=== PATIENT | male | born 1960 | race Caucasian/White ===

== ENCOUNTER 2016-05-04 08:35 | Observation (INO) ==
[2016-05-04] MEDS ORDERED: methylPREDNISolone 125 MG/2 ML VIAL IVP ONE (08:54)
[2016-05-04] MEDS ORDERED: Ipratropium/Albuterol Neb 3 ML IH ONE (08:54)
[2016-05-04 09:14] LABS: Basophils # 0.1 K/mcL (0.0-0.2); Basophils % 0.6 %; Eosinophils # 0.6 K/mcL (0.0-0.6); Eosinophils % 6.7 %; Hematocrit 50.4 % (37.5-50.1); Hemoglobin 16.1 g/dL (12.9-16.9); Immature Granulocytes % 0.2 % (0-4); Immature Platelets 3.7 % (1.1-6.1); Lymphocytes # 0.8 K/mcL (0.6-4.6); Lymphocytes % 9.6 %; Mean Corpuscular HGB Conc 31.9 g/dL (31.6-35.5); Mean Corpuscular Hemoglobin 28.8 pg (28.0-33.3); Mean Corpuscular Volume 90.2 fL (83.0-100.0); Mean Platelet Volume 9.8 fL (9.4-12.4); Monocytes # 0.8 K/mcL (0.0-1.3); Monocytes % 8.9 %; Neutrophils # 6.3 K/mcL (1.6-8.9); Platelet Count 183 K/mcL (140-400); Red Blood Count 5.59 M/mcL (4.19-5.50); Red Cell Distribution Width 13.3 % (11.5-14.5)
[2016-05-04 09:24] LABS: BUN/Creatinine Ratio 10 (6-26); Blood Urea Nitrogen 9 mg/dL (8-26); Calcium 9.6 mg/dL (8.6-10.8); Carbon Dioxide 35 mEq/L (19-29); Chloride 100 mEq/L (98-109); Glucose 118 mg/dL (70-99); Osmolality,Calculated 292 (280-300); Potassium 4.2 mEq/L (3.5-4.5); Sodium 141 mEq/L (136-145); eGFR For African Americans > 60 (> 60); eGFR For Non-African Americans > 60 (> 60)
--- NOTE | 2016-05-04 09:36 | Emergency Department Note ---
Disposition Clinical Impression: Hypoxia, COPD exacerbation Disposition: Admitted As Inpatient Forms: ED Satisfaction Letter SOB HPI - General Chief Complaint: ED Shortness of Breath/Dyspnea Stated Complaint: ESPERANZA Time Seen by Provider: 05/04/16 08:48 Source: patient Limitations: no limitations - History of Present Illness Patient with past medical history of COPD and hypertension presenting for evaluation of cough 3 weeks as well as shortness of breath that is keeping him from getting around his house today. Patient is not normally on home oxygen. Patient's initial symptoms improved with primary care's initiation of prednisone and antibiotics which ended approximately one week ago. Patient has not had 3 days of coughing up sputum including white and green mucus. Patient denies fever chills. Patient does have leg swelling with +1 pitting edema to the knees bilaterally. On arrival patient was hypoxic with oxygen saturation of high 80s on room air. Patient tachycardic and hypotensive with significant expiratory wheezing. Duonebs and steroids initiated after triage. - Related Data Home Medications Medication Instructions Recorded Confirmed Albuterol Sulfate [Ventolin Hfa] 2 puff IH Q6H PRN 05/04/16 05/04/16 Ascorbate Calcium [Vitamin C] 500 mg PO DAILY 05/04/16 05/04/16 C/Sourcherry/Celery/Grape Seed 1 cap PO DAILY 05/04/16 05/04/16 [Tart Henderson Capsule] Ibuprofen [Motrin] 200 mg PO Q6HR PRN 05/04/16 05/04/16 Naproxen Sodium [Aleve] 220 mg PO BID PRN 05/04/16 05/04/16 Omeprazole [PriLOSEC] 20 mg PO DAILY 05/04/16 05/04/16 Tiotropium [Spiriva] 1 cap IH DAILY 05/04/16 05/04/16 Valsartan/Hydrochlorothiazide 1 tab PO DAILY 05/04/16 05/04/16 [Diovan Hct 160-12.5 mg Tab] Allergies Allergy/AdvReac Type Severity Reaction Status Date / Time demoral Allergy Rash Uncoded 05/04/16 08:43 All systems ED: reviewed and negative except as stated. Constitutional: Reports: weakness. Denies: fever, chills Eyes: Denies: eye pain ENT ED: Denies: ear pain Cardiovascular: Reports: dyspnea on exertion, orthopnea. Denies: chest pain, palpitations Respiratory: Reports: cough, dyspnea, wheezes Gastrointestinal: Denies: abdominal pain, nausea, vomiting Genitourinary: Denies: urgency, dysuria Musculoskeletal: Denies: back pain Integumentary: Denies: rash, abrasion Neurological: Denies: headache, weakness Psychiatric: Denies: anxiety, depression Endocrine: Denies: fatigue Past Medical History - Past Medical History Medical history: Reports: COPD, GERD, hypertension Psychiatric history: Reports: no psych history - Social History Smoking Status: Former smoker Smokeless Tobacco Status: No Alcohol use: Reports: none Drug use: Reports: none Physical Exam - General Limitations: no limitations General appearance: alert - Head Head exam: atraumatic, normocephalic, normal inspection - Eye Eye exam: Present: normal appearance, PERRL, EOMI - ENT ENT exam: normal exam - Neck Neck exam: Present: normal inspection - Chest Chest inspection: Present: normal inspection, symmetric chest wall rise. Absent : tenderness - Respiratory Respiratory exam: Present: respiratory distress, wheezes (Diffuse bilaterally with prolonged expiratory phase) - Cardiovascular Cardiovascular exam: Present: regular rate, normal rhythm - Abdominal Exam Abdominal exam: Present: soft, Non-Tender - Extremities Exam Extremities exam: Present: normal inspection, tenderness - Back Exam Back exam: Present: normal inspection. Absent: tenderness - Neurological Exam Neurological exam: Present: alert, oriented X3 - Psychiatric Psychiatric exam: Present: normal affect, normal mood - Skin Skin exam: Present: warm, dry, intact Course - Reevaluation(s) Reevaluation #1: After initial DuoNeb's. Patient's oxygen dropped to 90% on room air just resting in bed. - Consultations Consultation #1: Discussed with hospitalist. Patient accepted. Vital Signs Temperature 98.6 F 05/04/16 08:38 Pulse Rate 103 05/04/16 08:38 Respiratory Rate 26 05/04/16 08:38 Blood Pressure 165/110 05/04/16 08:38 O2 Sat by Pulse Oximetry 82 L 05/04/16 08:38 Temperature 98.1 F 05/04/16 15:54 Pulse Rate 80 05/04/16 15:54 Respiratory Rate 17 05/04/16 15:54 Blood Pressure 149/88 05/04/16 15:54 O2 Sat by Pulse Oximetry 93 L 05/04/16 15:54 Oxygen Delivery Oxygen Delivery Nasal Cannula Shortness of Breath/Dyspnea - Medical Records Medical records reviewed: Yes I reviewed the patient's medical records. - Lab Data Lab results reviewed: Yes I reviewed the patient's lab results. Result diagrams: 05/04/16 09:04 05/04/16 09:04 Lab Results 05/04/16 05/04/16 05/04/16 Range/Units 09:04 09:04 09:04 WBC 8.5 (4.3-11.1) K/mcL RBC 5.59 H (4.19-5.50) M/mcL Hgb 16.1 (12.9-16.9) g/dL Hct 50.4 H (37.5-50.1) % MCV 90.2 (83.0-100.0) fL MCH 28.8 (28.0-33.3) pg MCHC 31.9 (31.6-35.5) g/dL RDW 13.3 (11.5-14.5) % Plt Count 183 (140-400) K/mcL MPV 9.8 (9.4-12.4) fL Immature Gran % 0.2 (0-4) % Seg Neutrophils % 74.0 % Lymphocytes % 9.6 % Monocytes % 8.9 % Eosinophils % 6.7 % Basophils % 0.6 % Neutrophils # 6.3 (1.6-8.9) K/mcL Lymphocytes # 0.8 (0.6-4.6) K/mcL Monocytes # 0.8 (0.0-1.3) K/mcL Eosinophils # 0.6 (0.0-0.6) K/mcL Basophils # 0.1 (0.0-0.2) K/mcL Immature Plt Fraction 3.7 (1.1-6.1) % ABG pH (7.32-7.45) pH Units ABG pCO2 (35-45) mmHg ABG pO2 (85-104) mmHg ABG HCO3 (21-27) mEQ/L ABG Total CO2 (20-26) mEq/L ABG O2 Saturation (95-98) % ABG Base Excess (-2.0 to 3.0) mEq/L Blood Gas Modality Inspired O2 % Sodium 141 (136-145) mEq/L Potassium 4.2 (3.5-4.5) mEq/L Chloride 100 (98-109) mEq/L Carbon Dioxide 35 H (19-29) mEq/L BUN 9 (8-26) mg/dL Creatinine 0.86 (0.72-1.25) mg/dL Est GFR ( Amer) > 60 (> 60) Est GFR (Non-Af Amer) > 60 (> 60) BUN/Creatinine Ratio 10 (6-26) Glucose 118 H (70-99) mg/dL Calculated Osmolality 292 (280-300) Calcium 9.6 (8.6-10.8) mg/dL Troponin I 0.01 (0-0.03) ng/mL B-Natriuretic Peptide (0-100) pg/mL 05/04/16 05/04/16 05/04/16 Range/Units 09:04 11:04 16:00 WBC (4.3-11.1) K/mcL RBC (4.19-5.50) M/mcL Hgb (12.9-16.9) g/dL Hct (37.5-50.1) % MCV (83.0-100.0) fL MCH (28.0-33.3) pg MCHC (31.6-35.5) g/dL RDW (11.5-14.5) % Plt Count (140-400) K/mcL MPV (9.4-12.4) fL Immature Gran % (0-4) % Seg Neutrophils % % Lymphocytes % % Monocytes % % Eosinophils % % Basophils % % Neutrophils # (1.6-8.9) K/mcL Lymphocytes # (0.6-4.6) K/mcL Monocytes # (0.0-1.3) K/mcL Eosinophils # (0.0-0.6) K/mcL Basophils # (0.0-0.2) K/mcL Immature Plt Fraction (1.1-6.1) % ABG pH 7.35 (7.32-7.45) pH Units ABG pCO2 66 H (35-45) mmHg ABG pO2 68 L (85-104) mmHg ABG HCO3 36.4 H (21-27) mEQ/L ABG Total CO2 38.4 H (20-26) mEq/L ABG O2 Saturation 92 L (95-98) % ABG Base Excess 7.6 H (-2.0 to 3.0) mEq/L Blood Gas Modality NC Inspired O2 36 % Sodium (136-145) mEq/L Potassium (3.5-4.5) mEq/L Chloride (98-109) mEq/L Carbon Dioxide (19-29) mEq/L BUN (8-26) mg/dL Creatinine (0.72-1.25) mg/dL Est GFR ( Amer) (> 60) Est GFR (Non-Af Amer) (> 60) BUN/Creatinine Ratio (6-26) Glucose (70-99) mg/dL Calculated Osmolality (280-300) Calcium (8.6-10.8) mg/dL Troponin I 0.00 (0-0.03) ng/mL B-Natriuretic Peptide 12 (0-100) pg/mL - Radiology Data Radiology results reviewed: Yes I reviewed the patient's radiology results. - EKG Data EKG attestation: Yes I reviewed and interpreted this EKG. EKG results narrative: EKG shows sinus rhythm with ventricular rate of 101. IL interval 166. QRS 96. QTC 391. Patient has no significant ST elevations or depressions. Nonspecific T-wave changes. No previous EKG.
[2016-05-04] MEDS ORDERED: 0.9 % Sodium Chloride 500 ML IV ONE (10:15)
--- NOTE | 2016-05-04 10:17 | Emergency Department Note ---
Disposition Clinical Impression: Hypoxia, COPD exacerbation Disposition: Admitted As Inpatient Referrals: Veronica Killian MD [Primary Care Provider] - General Adult [facility] - General Chief complaint: ED Shortness of Breath/Dyspnea Stated complaint: ESPERANZA Time Seen by Provider: 05/04/16 08:48 Source: patient Limitations: no limitations - History of Present Illness Pain Scale: 0 - Related Data Allergies Allergy/AdvReac Type Severity Reaction Status Date / Time demoral Allergy Rash Uncoded 05/04/16 08:43 Constitutional: Reports: weakness. Denies: fever, chills Eyes: Denies: eye pain ENT ED: Denies: ear pain Cardiovascular: Reports: dyspnea on exertion, orthopnea. Denies: chest pain, palpitations Respiratory: Reports: cough, dyspnea, wheezes Gastrointestinal: Denies: abdominal pain, nausea, vomiting Genitourinary: Denies: urgency, dysuria Musculoskeletal: Denies: back pain Integumentary: Denies: rash, abrasion Neurological: Denies: headache, weakness Psychiatric: Denies: anxiety, depression Endocrine: Denies: fatigue Past Medical History - Past Medical History Medical history: Reports: COPD, GERD, hypertension Psychiatric history: Reports: no psych history - Social History Smoking Status: Former smoker Smokeless Tobacco Status: No Alcohol use: Reports: none Drug use: Reports: none Physical Exam - General Limitations: no limitations General appearance: alert Course - Reevaluation(s) Reevaluation #1: I saw the patient with the resident, Dr. Medley. Patient presents with shortness of breath and cough. Patient was recently diagnosed with COPD and was recently treated for bronchitis with antibiotics and steroids. Couple days after stopping the steroids he started getting short of breath and wheezing again. For the past week he has been having a lot of trouble. He describes inability to lie down. He describes similar shortness of breath when exerting himself that is limiting his activities of daily living. On arrival to the department his O2 sat was 82% on room air. He is up in the 90s with oxygen supplementation. After breathing treatments and steroids and with oxygen on, the patient is still tachycardic and tachypneic with a little bit of accessory muscle use. He continues to have expiratory wheezing. I think he needs to be treated inpatient due to his oxygen requirement at this point. Time: 10:17 Vital Signs Temperature 98.6 F 05/04/16 08:38 Pulse Rate 103 05/04/16 08:38 Respiratory Rate 26 05/04/16 08:38 Blood Pressure 165/110 05/04/16 08:38 O2 Sat by Pulse Oximetry 82 L 05/04/16 08:38 Temperature 98.6 F 05/04/16 08:38 Pulse Rate 98 05/04/16 09:20 Respiratory Rate 25 05/04/16 09:20 Blood Pressure 156/100 05/04/16 09:20 O2 Sat by Pulse Oximetry 96 05/04/16 09:20 Oxygen Delivery Oxygen Delivery Nasal Cannula Medical Decision Making - Lab Data Result diagrams: 05/04/16 09:04 05/04/16 09:04 Lab Results 05/04/16 05/04/16 05/04/16 Range/Units 09:04 09:04 09:04 WBC 8.5 (4.3-11.1) K/mcL RBC 5.59 H (4.19-5.50) M/mcL Hgb 16.1 (12.9-16.9) g/dL Hct 50.4 H (37.5-50.1) % MCV 90.2 (83.0-100.0) fL MCH 28.8 (28.0-33.3) pg MCHC 31.9 (31.6-35.5) g/dL RDW 13.3 (11.5-14.5) % Plt Count 183 (140-400) K/mcL MPV 9.8 (9.4-12.4) fL Immature Gran % 0.2 (0-4) % Seg Neutrophils % 74.0 % Lymphocytes % 9.6 % Monocytes % 8.9 % Eosinophils % 6.7 % Basophils % 0.6 % Neutrophils # 6.3 (1.6-8.9) K/mcL Lymphocytes # 0.8 (0.6-4.6) K/mcL Monocytes # 0.8 (0.0-1.3) K/mcL Eosinophils # 0.6 (0.0-0.6) K/mcL Basophils # 0.1 (0.0-0.2) K/mcL Immature Plt Fraction 3.7 (1.1-6.1) % Sodium 141 (136-145) mEq/L Potassium 4.2 (3.5-4.5) mEq/L Chloride 100 (98-109) mEq/L Carbon Dioxide 35 H (19-29) mEq/L BUN 9 (8-26) mg/dL Creatinine 0.86 (0.72-1.25) mg/dL Est GFR ( Amer) > 60 (> 60) Est GFR (Non-Af Amer) > 60 (> 60) BUN/Creatinine Ratio 10 (6-26) Glucose 118 H (70-99) mg/dL Calculated Osmolality 292 (280-300) Calcium 9.6 (8.6-10.8) mg/dL Troponin I 0.01 (0-0.03) ng/mL B-Natriuretic Peptide (0-100) pg/mL 05/04/16 Range/Units 09:04 WBC (4.3-11.1) K/mcL RBC (4.19-5.50) M/mcL Hgb (12.9-16.9) g/dL Hct (37.5-50.1) % MCV (83.0-100.0) fL MCH (28.0-33.3) pg MCHC (31.6-35.5) g/dL RDW (11.5-14.5) % Plt Count (140-400) K/mcL MPV (9.4-12.4) fL Immature Gran % (0-4) % Seg Neutrophils % % Lymphocytes % % Monocytes % % Eosinophils % % Basophils % % Neutrophils # (1.6-8.9) K/mcL Lymphocytes # (0.6-4.6) K/mcL Monocytes # (0.0-1.3) K/mcL Eosinophils # (0.0-0.6) K/mcL Basophils # (0.0-0.2) K/mcL Immature Plt Fraction (1.1-6.1) % Sodium (136-145) mEq/L Potassium (3.5-4.5) mEq/L Chloride (98-109) mEq/L Carbon Dioxide (19-29) mEq/L BUN (8-26) mg/dL Creatinine (0.72-1.25) mg/dL Est GFR ( Amer) (> 60) Est GFR (Non-Af Amer) (> 60) BUN/Creatinine Ratio (6-26) Glucose (70-99) mg/dL Calculated Osmolality (280-300) Calcium (8.6-10.8) mg/dL Troponin I (0-0.03) ng/mL B-Natriuretic Peptide 12 (0-100) pg/mL Attestation Statement - Attestation Attestation: I, Dr. Wade, examined this patient [id number] and my medical decision- making was reviewed with Dr. Medley, Resident Physician. I agree with the documented findings, disposition and treatment plan as described except to the extent set forth below. Please see my progress notes for details.
[2016-05-04] MEDS ORDERED: Naloxone 0.4 MG/ML INJ IVP PRN (10:56)
--- NOTE | 2016-05-04 11:02 | Internal Med History&Physical ---
<Jane Mathis - Last Filed: 05/04/16 11:36> Date of Encounter: 05/04/16 Time of Encounter: 10:45 Assessment and Plan (1) Hypoxemia Current visit: Yes Status: Acute Most probable secondary to COPD exacerbation. Evidenced by 82% saturation on room air, patient does not use supplemental oxygen on a regular basis. 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 Consideration for underlying interstitial lung disease. Pulmonary embolism considered, with Wells score of 1.5: Tachycardia. Low probability at this time. Lower extremity exam discloses very mild pretibial pitting edema. Will obtain Dopplers lower extremity. Patient has significant hypoxemia, with comorbid conditions, predisposing him to increased risk of clinical deterioration, and acute decompensation. Warrants hospitalization with evaluation. We will obtain ABG for further delineation. (2) COPD exacerbation Current visit: Yes Status: Acute Evidenced by increasing dyspnea, with worsening sputum production. Supported by chest x-ray with flattened diaphragm. Failed outpatient therapy, concern for secondary bacterial infection: Will obtain blood cultures 2, sputum culture, start empiric antibiotic therapy. Systemic steroids, taper as clinically indicated. Patient did endorse multiple sick contacts in the family, will obtain respiratory infectious panel. Patient has never had PFTs, would recommend obtaining PFTs in 6 weeks after hospitalization following acute illness. (3) Polycythemia secondary to smoking Current visit: Yes Status: Acute Secondary polycythemia suspect secondary to smoking primarily. May also be contributory from possible sleep apnea. No prior records to review. Encouraged smoking cessation, sleep apnea evaluation as outpatient. (4) HTN (hypertension) Current visit: Yes Status: Acute Would continue home medication. Consideration for possible sleep apnea, would suggest f/u as outpatient. Qualifiers: Hypertension type: essential hypertension Qualified Code(s): I10 - Essential (primary) hypertension (5) Smoker Current visit: Yes Status: Acute Patient has been smoking since age of 20, quit in June 2015, but does have 1 -2 occasional cigarettes still. Patient was counseled on smoking cessation, offered nicotine replacement therapy. Patient declined a nicotine patch at this juncture. (6) DVT prophylaxis Current visit: Yes Status: Acute Heparin 5000 U SC TID Internal Medicine - H&P: HPI Chief complaint: Short of breath Admitted From: Home Plans for Post Hospital Care: Home History of present illness: Mr. Kapadia is a 55 year old male significant history COPD, hypertension, GERD. The patient was evaluated late March by his PCP Dr. Veronica Killian, for COPD exacerbation. He was prescribed a course of prednisone 40 mg daily for 5 days, Pro Air, Symbicort. Per patient's recollection, he has never been diagnosed with COPD by PFTs. The patient reports that his course would improve during the steroid therapy, and that he felt like a young 27-year-old. Interval progression he would experience increasing cough with whitish green sputum production, and increased shortness of breath, this is pronounced over the past week, prompting his admission to [facility]. ED interval course he received duonebs, IV steroids, with some improvement of symptoms. Initial evaluation he would have desaturation to 82% on room air, this was improved to 94% on 3 L nasal cannula. Chest x-ray with disclose no evidence of pneumothorax, or infiltrate. There is some mild blunting of the diaphragms consistent with COPD, and perihilar opacity consistent with his occupational exposure. Upon my evaluation in the ED, patient was sitting up and affirms events leading to hospitalization. He reports that he has been smoking since the age of 20, but quit in June, and does smoke about 1-2 cigarettes since that time. 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 The patient denies any pleurisy, and he is able to perform ADLs without shortness of breath up until today. The patient reports that he is not on home oxygen. He denies any fever, chills , muscle aches or cramps, abdominal pain, nausea vomiting diarrhea. He denies any hemoptysis or blood-tinged sputum. He denies any change in bowel habits, no blood noted in stool. He is current with flu vaccine and pneumonia vaccine. He denies any sensation of chest pain, chest pressure, tightness, palpitations, pauses. He states that he sometimes feels difficulty taking in a full breath when he is lying flat, so he sleeps on a recliner. He endorses multiple sick contacts in his family, including cough, congestion and vomiting. Patient reports some LE swelling since last week. No trauma or redness to the region. Denies any trauma, long travel. FH: His mother had MV repair in 70's, reportedly from rheumatic fever complication. Father DM. SH: He reports smoking since age of 20, quit Jun 2015 but still has 1-2 cigarettes on occasion. Alcohol use with a few beers, on occasion, states last drink was 4-5 days ago. He is able to perform ADLs without walker or cane. Past Med Surg Social Fam HX - Past Medical History Medical history: COPD, GERD, hypertension Psychiatric history: no psych history - Social History Smoking Status: Former smoker Smokeless Tobacco Status: No Alcohol use: none Drug use: none - Family History Mother Living Status: Hx Family Endocrine Disorder: Yes (DM) Internal Medicine - H&P: Meds Albuterol Sulfate [Ventolin Hfa] 2 puff IH Q6H PRN 05/04/16 [History] Ascorbate Calcium [Vitamin C] 500 mg PO DAILY 05/04/16 [History] C/Sourcherry/Celery/Grape Seed [Tart Henderson Capsule] 1 cap PO DAILY 05/04/16 [ History] Ibuprofen [Motrin] 200 mg PO Q6HR PRN 05/04/16 [History] Naproxen Sodium [Aleve] 220 mg PO BID PRN 05/04/16 [History] Omeprazole [PriLOSEC] 20 mg PO DAILY 05/04/16 [History] Tiotropium [Spiriva] 1 cap IH DAILY 05/04/16 [History] Valsartan/Hydrochlorothiazide [Diovan Hct 160-12.5 mg Tab] 1 tab PO DAILY [History] Allergies demoral Allergy (Uncoded 05/04/16 08:43) Rash All Systems PM: A 10-system review of systems was performed and is negative for pertinent findings except as documented above in the HPI. - Constitutional Vitals: Temp Pulse Resp BP Pulse Ox 98.6 F 107 24 119/85 93 L 05/04/16 08:38 05/04/16 10:28 05/04/16 10:34 05/04/16 10:34 05/04/16 10:28 General appearance: Present: A&O X 3, answers questions appropriately Exam: Patient on 3 L nasal cannula, pursing of lips with exhalation, some accessory muscle use. Mild conversational dyspnea after several sentences. - Head Head exam: Present: atraumatic, normocephalic - Eye Eye exam: Present: EOMI, sclera anicteric - ENT ENT exam: Present: mucous membranes moist, normal oropharynx (no lesions/ mucosits) - Neck Neck exam general surgery: Present: supple, trachea midline. Absent: lymphadenopathy - Respiratory Respiratory exam: Present: accessory muscle use, prolonged expiratory phase ( with pursed lips), rhonchi (end exp ronchi, no crackles), wheezes (scant insp wheeze) - Cardiovascular Cardiovascular exam: Present: +S1, +S2, tachycardia. Absent: JVD - GI/Abdominal GI/Abdominal exam: Present: soft, no peritoneal signs. Absent: tenderness - Extremities Exam Extremities exam: Present: pedal edema (mild lower ankle, no rash, no Bandar's sign elicited), warm, radial pulses palpable and symetrical - Neurological Exam Neurological exam: Absent: facial droop, speech deficit Internal Med - H&P Results - Labs CBC & Chem 7: 05/04/16 09:04 05/04/16 09:04 <Gonzalez Mason - Last Filed: 05/04/16 12:43> Date of Encounter: 05/04/16 Internal Medicine - H&P: HPI History of present illness: Mr. Kapadia is a 55 year old male All Systems PM: A 10-system review of systems was performed and is negative for pertinent findings except as documented above in the HPI. - Constitutional Vitals: Temp Pulse Resp BP Pulse Ox 98.1 F 119 16 156/94 91 L 05/04/16 11:47 05/04/16 11:47 05/04/16 11:47 05/04/16 11:47 05/04/16 11:47 Internal Med - H&P Results - Labs CBC & Chem 7: 05/04/16 09:04 05/04/16 09:04 - ABG Interpretation ABG results: 05/04/16 11:04 ABG pH 7.35 ABG pCO2 66 H ABG pO2 68 L ABG HCO3 36.4 H ABG Total CO2 38.4 H ABG O2 Saturation 92 L ABG Base Excess 7.6 H - Attending Attestation I have seen and examined this patient independently. I have discussed the case with the resident, Dr. Mathis. I agree with the data gathering in the HPI, physical examination findings, assessment and plan as documented by the resident. COPD exacerbation with hypoxemia. Will continue with oxygen, steroids , aerosol therapy, antibiotics. The plan was discussed in detail with the patient.
[2016-05-04 11:48] LABS: ABG Base Excess 7.6 mEq/L (-2.0 to 3.0); ABG HCO3 36.4 mEQ/L (21-27); ABG Oxygen Saturation 92 % (95-98); ABG PCO2 66 mmHg (35-45); ABG PH 7.35 pH Units (7.32-7.45); ABG PO2 68 mmHg (85-104); ABG TCO2 38.4 mEq/L (20-26)
[2016-05-04 11:49] LABS: Blood Gas FiO2 36 %
[2016-05-04] MEDS: Azithromycin 500 MG in D5% in Water 250 ML IVPB SCH (12:28)
[2016-05-04] MEDS: *HR* Heparin 5,000 UNIT/ML VIAL SQ SCH ×2 (15:23→20:13)
[2016-05-04] MEDS: Ipratropium 1 PUFF INHALER IH SCH ×4 (16:08→22:45)
[2016-05-04] MEDS: Ipratropium/Albuterol Neb 3 ML IH SCH ×2 (16:10→22:27)
[2016-05-04] MEDS: Acetaminophen 325 MG TABLET PO PRN (17:50)
[2016-05-04] MEDS: methylPREDNISolone 125 MG/2 ML VIAL IVP SCH (20:13)
[2016-05-04] MEDS: GuaiFENesin/Dextromethorphan TABLET PO PRN (21:18)
[2016-05-04] MEDS: Budesonide/Formoterol 160/4.5 MDI IH SCH (22:27)
[2016-05-05 00:03] LABS: Adenovirus Not Detected (Not Detect); Bordetella Pertussis Not Detected (Not Detect); Chlamydophila pneumoniae Not Detected (Not Detect); Coronavirus 229E Not Detected (Not Detect); Coronavirus HKU1 Not Detected (Not Detect); Coronavirus NL63 Not Detected (Not Detect); Coronavirus OC43 Not Detected (Not Detect); Human Metapneumovirus Not Detected (Not Detect); Human Rhinovirus/Enterovirus Not Detected (Not Detect); Influenza A Subtype 2009 H1 Not Detected (Not Detect); Influenza A Untypeable Not Detected (Not Detect); Influenza B Not Detected (Not Detect); Mycoplasma pneumoniae Not Detected (Not Detect); Parainfluenza Virus 1 Not Detected (Not Detect); Parainfluenza Virus 2 Not Detected (Not Detect); Parainfluenza Virus 3 Not Detected (Not Detect); Parainfluenza Virus 4 Not Detected (Not Detect); Respiratory Syncytial Virus Not Detected (Not Detect)
[2016-05-05] MEDS: Ipratropium 1 PUFF INHALER IH SCH ×5 (03:39→23:05)
[2016-05-05] MEDS: Ipratropium/Albuterol Neb 3 ML IH SCH ×4 (04:07→22:35)
[2016-05-05] MEDS: Acetaminophen 325 MG TABLET PO PRN ×2 (04:22→13:49)
[2016-05-05 05:00] LABS: Hematocrit 47.3 % (37.5-50.1); Hemoglobin 15.2 g/dL (12.9-16.9); Immature Granulocytes % 0.5 % (0-4); Lymphocytes # 0.4 K/mcL (0.6-4.6); Lymphocytes % 4.5 %; Mean Corpuscular HGB Conc 32.1 g/dL (31.6-35.5); Mean Corpuscular Hemoglobin 29.2 pg (28.0-33.3); Mean Platelet Volume 9.9 fL (9.4-12.4); Monocytes # 0.3 K/mcL (0.0-1.3); Monocytes % 3.4 %; Neutrophils # 8.8 K/mcL (1.6-8.9); Platelet Count 167 K/mcL (140-400); Red Cell Distribution Width 13.2 % (11.5-14.5); Segmented Neutrophils % 91.6 %
[2016-05-05 05:28] LABS: BUN/Creatinine Ratio 18 (6-26); Blood Urea Nitrogen 15 mg/dL (8-26); Calcium 9.7 mg/dL (8.6-10.8); Carbon Dioxide 31 mEq/L (19-29); Chloride 99 mEq/L (98-109); Glucose 144 mg/dL (70-99); Osmolality,Calculated 293 (280-300); Potassium 4.2 mEq/L (3.5-4.5); Sodium 140 mEq/L (136-145); eGFR For African Americans > 60 (> 60); eGFR For Non-African Americans > 60 (> 60)
[2016-05-05] MEDS: Fluticasone Propionate Nasal 50 MCG/SPRAY BOTTLE NS SCH (07:54)
[2016-05-05] MEDS: *HR* Heparin 5,000 UNIT/ML VIAL SQ SCH ×3 (07:54→21:24)
[2016-05-05] MEDS: methylPREDNISolone 125 MG/2 ML VIAL IVP SCH ×2 (07:54→21:24)
--- NOTE | 2016-05-05 08:21 | Internal Med Progress Note ---
<Jane Mathis - Last Filed: 05/05/16 13:21> Date of Encounter: 05/05/16 Time of Encounter: 08:00 - Assessment and plan (1) Hypoxemia Current Visit: Yes Status: Acute Assessment and plan: Most probable secondary to COPD exacerbation. Evidenced by 82% saturation on room air, patient does not use supplemental oxygen on a regular basis. 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 Consideration for underlying interstitial lung disease. Pulmonary embolism considered, with Wells score of 1.5: Tachycardia. Low probability. Lower extremity exam discloses very mild pretibial pitting edema. Dopplers LE negative for DVT. (2) COPD exacerbation Current Visit: Yes Status: Acute Assessment and plan: Evidenced by increasing dyspnea, with worsening sputum production. Supported by chest x-ray with flattened diaphragm. Failed outpatient therapy, concern for secondary bacterial infection: Will obtain blood cultures 2, sputum culture, start empiric antibiotic therapy. Systemic steroids, taper as clinically indicated. Patient did endorse multiple sick contacts in the family. Respiratory infectious panel negative. (3) Polycythemia secondary to smoking Current Visit: Yes Status: Acute Assessment and plan: Secondary polycythemia suspect secondary to smoking primarily. May also be contributory from possible sleep apnea. No prior records to review. Encouraged smoking cessation, sleep apnea evaluation as outpatient. (4) HTN (hypertension) Current Visit: Yes Status: Acute Assessment and plan: Controlled. Holding diovan since it is nonformulary and the valsartan component would increase potassium resorption. Ordered for HCTZ 12.5mg QD Qualifiers: Hypertension type: essential hypertension Qualified Code(s): I10 - Essential (primary) hypertension (5) Smoker Current Visit: Yes Status: Acute Assessment and plan: Patient has been smoking since age of 20, quit in June 2015, but does have 1 -2 occasional cigarettes still. Patient was counseled on smoking cessation, offered nicotine replacement therapy. Patient declined a nicotine patch (6) DVT prophylaxis Current Visit: Yes Status: Acute Assessment and plan: Heparin 5000 U SC TID - Subjective Interval history: Patient seen/eval, reports he is breathing better and feels better overall. Oxygen now at 1.5-2 L NC, without conversational dyspnea. He denies any fever, chills, chest pain, abd pain, nvd. Cough has resolved. - Constitutional Vitals: Temp Pulse Resp BP Pulse Ox 97.6 F 82 16 163/84 96 05/05/16 07:28 05/05/16 07:28 05/05/16 07:28 05/05/16 07:28 05/05/16 07:28 General appearance: Present: A&O X 3, answers questions appropriately - Head Head exam: Present: atraumatic, normocephalic - Eye Eye exam: Present: EOMI, sclera anicteric - ENT ENT exam: Present: mucous membranes moist - Neck Neck exam general surgery: Present: supple, trachea midline - Respiratory Respiratory exam: Present: prolonged expiratory phase, rhonchi (scant exp, mild wheeze though air mvt overall improved), wheezes - Cardiovascular Cardiovascular exam: Present: +S1, +S2. Absent: JVD - GI/Abdominal GI/Abdominal exam: Present: soft. Absent: distended, tenderness - Extremities Exam Extremities exam: Present: warm, radial pulses palpable and symetrical. Absent : pedal edema Internal Medicine: Result - Labs CBC & Chem 7: 05/05/16 04:41 05/05/16 04:41 Labs: Short CBC 05/05/16 Range/Units 04:41 WBC 9.6 (4.3-11.1) K/mcL Hgb 15.2 (12.9-16.9) g/dL Hct 47.3 (37.5-50.1) % Plt Count 167 (140-400) K/mcL Neutrophils # 8.8 (1.6-8.9) K/mcL BMP 05/05/16 04:41 Sodium 140 Potassium 4.2 Chloride 99 Carbon Dioxide 31 H BUN 15 Creatinine 0.84 Glucose 144 H Calcium 9.7 Cardiac Enzymes 05/04/16 05/04/16 Range/Units 16:00 21:58 Troponin I 0.00 0.01 (0-0.03) ng/mL - ABG Interpretation ABG results: ABG ABG pH 7.35 pH Units (7.32-7.45) 05/04/16 11:04 ABG pCO2 66 mmHg (35-45) H 05/04/16 11:04 ABG pO2 68 mmHg (85-104) L 05/04/16 11:04 ABG O2 Saturation 92 % (95-98) L 05/04/16 11:04 Consult Discharge Plan - Plan Referrals: Veronica Killian MD [Primary Care Provider] - 05/14/16 10:20 am <Gonzalez Mason - Last Filed: 05/05/16 18:08> Date of Encounter: 05/05/16 - Constitutional Vitals: Temp Pulse Resp BP Pulse Ox 97.6 F 118 16 141/65 92 L 05/05/16 15:46 05/05/16 15:46 05/05/16 15:46 05/05/16 15:46 05/05/16 15:46 Internal Medicine: Result - Labs CBC & Chem 7: 05/05/16 04:41 05/05/16 04:41 Labs: Short CBC 05/05/16 Range/Units 04:41 WBC 9.6 (4.3-11.1) K/mcL Hgb 15.2 (12.9-16.9) g/dL Hct 47.3 (37.5-50.1) % Plt Count 167 (140-400) K/mcL Neutrophils # 8.8 (1.6-8.9) K/mcL BMP 05/05/16 04:41 Sodium 140 Potassium 4.2 Chloride 99 Carbon Dioxide 31 H BUN 15 Creatinine 0.84 Glucose 144 H Calcium 9.7 Cardiac Enzymes 05/04/16 Range/Units 21:58 Troponin I 0.01 (0-0.03) ng/mL - ABG Interpretation ABG results: ABG ABG pH 7.35 pH Units (7.32-7.45) 05/04/16 11:04 ABG pCO2 66 mmHg (35-45) H 05/04/16 11:04 ABG pO2 68 mmHg (85-104) L 05/04/16 11:04 ABG O2 Saturation 92 % (95-98) L 05/04/16 11:04 - Attending Attestation The patient was seen and examined with the residents during rounds. I agree with the physical examination findings, assessment and plan as documented by the resident, Dr. Mathis. Patient with hypoxemia, getting better with therapy for copd exacerbation. D/W patient.
--- NOTE | 2016-05-05 09:28 | Venous Imaging Report ---
LE Venous Duplex Patient Name:Praveen Kapadia Order Number:[id number] Procedure Date:05/04/2016 Date:1960Age:55 yrs Gender:Male Location:[facility] Room #: 3B32 News Video Editor:Dougie Soto RN Referring MD:Jane Mathis DO elevator pilot:Veronica Killian MD Reading MD:Amrik Bruce MD Primary Indications:Swelling of limb Secondary Indications: Risk Factors Yes/No Smoking Current No Anticoagulants No Previous Vascular Surgery No Hx of DVT No Hx of Chemotherapy No Trauma to Veins No Recent Surgery No Hx of Superficial Phlebitis No Rosalie Filter No Impressions: Bilateral lower extremity: normal superficial and deep exam. Recommendations: Test completed on 05/04/2016 at 2:40:00 pm. Findings Venous Duplex Results: Right: Venous imaging of the lower extremity reveals full patency and normal vessel compressibility of the right distal iliac, right common femoral, right superficial femoral, right popliteal, right posterior tibial, right peroneal, right great saphenous and right lesser saphenous. Doppler signals in the evaluated veins were normal. Left: Venous imaging of the lower extremity reveals full patency and normal vessel compressibility of the left distal iliac, left common femoral, left superficial femoral, left popliteal, left posterior tibial, left peroneal, left great saphenous and left lesser saphenous. Doppler signals in the evaluated veins were normal. Prior Study: No prior study available for comparison. Lower Extremity Venous Duplex Side Vein Compress Spontaneous Flow Augment Diameter (cm) Depth (cm) Right Distal Iliac Normal Yes Phasic Yes Right Common Femoral Normal Yes Phasic Yes Right Superficial Femoral Normal Yes Phasic Yes Right Popliteal Normal Yes Phasic Yes Right Posterior Tibial Normal Yes Phasic Yes Right Peroneal Normal Yes Phasic Yes Right Great Saphenous Normal Yes Phasic Yes Right Lesser Saphenous Normal Yes Phasic Yes Left Distal Iliac Normal Yes Phasic Yes Left Common Femoral Normal Yes Phasic Yes Left Superficial Femoral Normal Yes Phasic Yes Left Popliteal Normal Yes Phasic Yes Left Posterior Tibial Normal Yes Phasic Yes Left Peroneal Normal Yes Phasic Yes Left Great Saphenous Normal Yes Phasic Yes Left Lesser Saphenous Normal Yes Phasic Yes Updated by Amrik Bruce MD on 05/05/2016 9:22:36 AM electronically signed on 05/05/2016 9:22:50 AM with status of Final
[2016-05-05] MEDS: hydroCHLOROthiazide 25 MG TABLET PO SCH (09:42)
--- NOTE | 2016-05-05 09:54 | Electrocardiograph Report ---
[facility] Test Date: 2016-05-04 Pat Name: Praveen Kapadia Department: 103 Room: 3B32 Gender: M Glass Driller: ZOE : 1960 Requested By: Mike Medley Order Number: [id number] Reading MD: Vargas Fan Measurements Intervals [place] Rate: 101 P: 76 OK: 166 QRS: 131 QRSD: 96 T: 51 QT: 333 QTc: 391 Interpretive Statements SINUS TACHYCARDIA WITH OCCASIONAL SUPRAVENTRICULAR PREMATURE COMPLEXES POSSIBLE RIGHT VENTRICULAR HYPERTROPHY Electronically Signed On 05-05-16 09:53:47 EST by Vargas Fan
[2016-05-05] MEDS: Budesonide/Formoterol 160/4.5 MDI IH SCH ×2 (10:23→22:35)
[2016-05-05] MEDS: Azithromycin 500 MG in D5% in Water 250 ML IVPB SCH (11:44)
[2016-05-05] MEDS: GuaiFENesin/Dextromethorphan TABLET PO PRN (15:55)
[2016-05-06] MEDS: Ipratropium 1 PUFF INHALER IH SCH ×4 (03:13→16:16)
[2016-05-06] MEDS: Ipratropium/Albuterol Neb 3 ML IH SCH ×2 (03:57→10:54)
[2016-05-06 05:01] LABS: Basophils % 0.1 %; Hematocrit 47.4 % (37.5-50.1); Hemoglobin 15.3 g/dL (12.9-16.9); Immature Granulocytes % 0.6 % (0-4); Lymphocytes # 0.4 K/mcL (0.6-4.6); Lymphocytes % 3.4 %; Mean Corpuscular HGB Conc 32.3 g/dL (31.6-35.5); Mean Corpuscular Hemoglobin 29.6 pg (28.0-33.3); Mean Corpuscular Volume 91.7 fL (83.0-100.0); Monocytes # 0.3 K/mcL (0.0-1.3); Monocytes % 2.5 %; Platelet Count 163 K/mcL (140-400); Red Blood Count 5.17 M/mcL (4.19-5.50); Red Cell Distribution Width 13.3 % (11.5-14.5); Segmented Neutrophils % 93.4 %
[2016-05-06] MEDS: hydroCHLOROthiazide 25 MG TABLET PO SCH (08:26)
[2016-05-06] MEDS: *HR* Heparin 5,000 UNIT/ML VIAL SQ SCH (08:26)
[2016-05-06] MEDS: Fluticasone Propionate Nasal 50 MCG/SPRAY BOTTLE NS SCH (08:27)
--- NOTE | 2016-05-06 08:55 | Discharge Summary ---
<Jane Mathis - Last Filed: 05/06/16 14:30> Date of Encounter: 05/06/16 Time of Encounter: 08:30 - Discharge Diagnosis (1) Acute hypoxemic respiratory failure Priority: Primary Status: Acute (2) SHANNON (obstructive sleep apnea) Priority: Secondary Status: Chronic (3) COPD exacerbation Priority: Primary Status: Acute (4) HTN (hypertension) Priority: Primary Status: Chronic Qualifiers: Hypertension type: essential hypertension Qualified Code(s): I10 - Essential (primary) hypertension (5) Smoker Priority: Primary Status: Acute (6) Hypoxemia Priority: Primary Status: Acute (7) Polycythemia secondary to smoking Priority: Secondary Status: Chronic (8) DVT prophylaxis Priority: Secondary Status: Acute - Discharge Medications Prescriptions: Ipratropium [ATROVENT Inhaler] 2 puff IH [id number] #1 inhaler Azithromycin [Zithromax Tri-Zechariah] 500 mg PO QDPC #4 tablet Budesonide/Formoterol 160/4.5 [Symbicort 160/4.5] 2 puff IH BIDR #1 inhaler Fluticasone Propionate Nasal [Flonase] 50 mcg NS DAILY #1 bottle GuaiFENesin/Dextromethorphan [Mucinex Dm] 1 each PO BID PRN #10 tab.er.12h PRN Reason: Cough PredniSONE 40 mg PO DAILY #8 tablet Home Medications: Albuterol Sulfate [Ventolin Hfa] 2 puff IH Q6H PRN 05/04/16 [History] Ascorbate Calcium [Vitamin C] 500 mg PO DAILY 05/04/16 [History] C/Sourcherry/Celery/Grape Seed [Tart [place] Capsule] 1 cap PO DAILY 05/04/16 [ History] Ibuprofen [Motrin] 200 mg PO Q6HR PRN 05/04/16 [History] Naproxen Sodium [Aleve] 220 mg PO BID PRN 05/04/16 [History] Omeprazole [PriLOSEC] 20 mg PO DAILY 05/04/16 [History] Tiotropium [Spiriva] 1 cap IH DAILY 05/04/16 [History] Valsartan/Hydrochlorothiazide [Diovan Hct 160-12.5 mg Tab] 1 tab PO DAILY [History] Azithromycin [Zithromax Tri-Zechariah] 500 mg PO QDPC #4 tablet 05/06/16 [Rx] Budesonide/Formoterol 160/4.5 [Symbicort 160/4.5] 2 puff IH BIDR #1 inhaler 08/17 [Rx] Fluticasone Propionate Nasal [Flonase] 50 mcg NS DAILY #1 bottle 05/06/16 [Rx] GuaiFENesin/Dextromethorphan [Mucinex Dm] 1 each PO BID PRN #10 tab.er.12h 05/06 [Rx] Ipratropium [ATROVENT Inhaler] 2 puff IH [id number] #1 inhaler 05/06/16 [Rx] PredniSONE 40 mg PO DAILY #8 tablet 05/06/16 [Rx] Allergies/Adverse Reactions: Allergies demoral Allergy (Uncoded 05/04/16 08:43) Rash Procedures/tests Complete & Pending: Procedures Performed prior 72 hours Category Date Time Status Venous Doppler [EV venous imaging LE BI] Stat Y 05/04/16 10:56 Completed Date of admission: 05/04/16 10:26 Primary care physician: Veronica Killian MD Consults: 05/04/16 11:17 Consult to Black Off Worker [CONS] Routine Reason for SW Consult: Possible home oxygen at discharge. Discharging clinician: Gonzalez Mason Anticipated date of discharge: 05/06/16 - Patient Status Disposition: Home, Self-Care Condition: Fair Functional capacity at discharge: independent ambulation Overall status at discharge: patient is progressing back to baseline - Discharge Instructions Instructions: Prednisone (By mouth), Guaifenesin (By mouth), Azithromycin (By mouth), Ipratropium (Into the nose), Budesonide/Formoterol (By breathing), Fluticasone (Into the nose), Chronic Obstructive Pulmonary Disease (DC) Follow Up With: Veronica Killian MD [Primary Care Provider] - 05/14/16 10:20 am Forms: ED Satisfaction Letter - Diet and Activity Activity: increase activity as tolerated, wear oxygen at all times Diet: advance to your usual diet Hospital course: Mr. Kapadia is a 55 year old male significant history COPD, hypertension, GERD. The patient was evaluated late March by his PCP Dr. Veronica Killian, for COPD exacerbation. He would present to [facility] on 05/04/16 having failed outpatient therapy for COPD, with initial impression of COPD exacerbation. ED course he received duonebs, IV steroids, with some improvement of symptoms. Initial evaluation he would have desaturation to 82% on room air, this was improved to 94% on 3 L nasal cannula. Chest x-ray with disclose no evidence of pneumothorax, or infiltrate. There is some mild blunting of the diaphragms consistent with COPD, and perihilar opacity consistent with his occupational exposure. Workup, did obtain blood cultures 2, sputum culture, start empiric antibiotic therapy. Blood cultures were negative, sputum culture normal upper resp samantha, Influenza A/B negative, UAT strep and legionella negative. Patient improved on azithromycin, systemic steroids, taper as clinically indicated. Dopplers bilateral LE, negative for DVT. Patient was counseled on smoking cessation, offered nicotine replacement therapy. Patient declined a nicotine patch and reports that he will try to quit cold- turkey. Had weaned down to a few cigarettes on occasion. ABG obtained disclosing pH 7.35 / pCO2 66, on NC. Consistent with hypoxemic respiratory failure, with subsequent nocturnal pulse-ox consistent with SHANNON. Patient was qualified for supplemental oxygen, then subsequently for BiPAP. Hospital course he improved clinically, breathing well but still requiring supplemental oxygen, cough had improved as well. At time of discharge, patient was clinically improved, hemodynamically stable, progressing to baseline. He will complete 4 more days of prednisone and antibiotic therapy. He will have supplemental oxygen, BiPAP for suspected sleep apnea, and follow up with his PCP Dr. Veronica Killian in 1-2 weeks. LABA/LAMA, ICS maintenance for COPD. He was advised to seek immediate medical attention for any new or worsening symptoms including but not limited to fever, chills, chest pain, dyspnea, worsening cough and he voiced understanding and agreement. Time spent discussing smoking cessation with patient: more than 10 minutes - Time Spent with Patient Total time spent providing and/or coordinating discharge services: Greater than 30 minutes - Constitutional Vitals: Temp Pulse Resp BP Pulse Ox 97.3 F L 102 19 132/84 97 05/06/16 07:00 05/06/16 07:00 05/06/16 07:00 05/06/16 07:00 05/06/16 07:00 General appearance: Present: A&O X 3, answers questions appropriately - Head Head exam: Present: atraumatic, normocephalic - Eye Eye exam: Present: EOMI, sclera anicteric - ENT ENT exam: Present: mucous membranes moist - Neck Neck exam general surgery: Present: supple, trachea midline - Respiratory Respiratory exam: Present: prolonged expiratory phase, rhonchi (scant, mild wheeze, but air movement much improved. No accessory muscle use, no conversational dyspnea, tripoding, or pursed lips). Absent: accessory muscle use, respiratory distress - Cardiovascular Cardiovascular exam: Present: +S1, +S2. Absent: JVD - GI/Abdominal GI/Abdominal exam: Present: soft, no peritoneal signs. Absent: tenderness - Extremities Exam Extremities exam: Present: warm, radial pulses palpable and symetrical. Absent : pedal edema <Gonzalez Mason - Last Filed: 05/06/16 16:41> Date of Encounter: 05/06/16 Procedures/tests Complete & Pending: Procedures Performed prior 72 hours Category Date Time Status Venous Doppler [EV venous imaging LE BI] Stat Y 05/04/16 10:56 Completed Date of admission: 05/04/16 10:26 Primary care physician: Veronica Killian MD Consults: 05/04/16 11:17 Consult to Black Off Worker [CONS] Routine Reason for SW Consult: Possible home oxygen at discharge. Hospital course: Mr. Kapadia is a 55 year old male - Time Spent with Patient Total time spent providing and/or coordinating discharge services: - Constitutional Vitals: Temp Pulse Resp BP Pulse Ox 97.9 F 110 17 120/83 93 L 05/06/16 11:21 05/06/16 11:21 05/06/16 11:21 05/06/16 11:21 05/06/16 11:21 - Attending Attestation I examined this patient and my medical decision-making was reviewed with the Resident Physician, Dr. Mathis. I agree with the documented findings, disposition and treatment plan as described. Patient needs Bipap and LTOT. Arrangements made. He responded well to therapy for his copd exacerbation.
[2016-05-06] MEDS ORDERED: predniSONE 20 MG TABLET PO SCH (09:00)
[2016-05-06 09:04] LABS: BUN/Creatinine Ratio 26 (6-26); Blood Urea Nitrogen 22 mg/dL (8-26); Calcium 9.8 mg/dL (8.6-10.8); Carbon Dioxide 32 mEq/L (19-29); Chloride 99 mEq/L (98-109); Glucose 158 mg/dL (70-99); Osmolality,Calculated 299 (280-300); Potassium 4.7 mEq/L (3.5-4.5); Sodium 141 mEq/L (136-145); eGFR For African Americans > 60 (> 60); eGFR For Non-African Americans > 60 (> 60)
[2016-05-06] MEDS: Budesonide/Formoterol 160/4.5 MDI IH SCH (10:54)
[2016-05-06 11:22] VITALS: BP 120/83
[2016-05-06] MEDS: Azithromycin 500 MG in D5% in Water 250 ML IVPB SCH (11:49)
== END 2016-05-06 16:00 | disposition home or self-care (01) ==
LOC: EMEROO 08:35 → 3BNU 08:35 → SUATTDRO 10:26 → MERGE 10:26 → 3BNU 10:44
PROVIDERS: ADMIT Internal Medicine; ATTEND Internal Medicine

== ENCOUNTER 2017-04-10 16:28 | Inpatient (IN) ==
[2017-04-10] MEDS ORDERED: Ipratropium/Albuterol Neb 3 ML IH ONE (16:35)
--- NOTE | 2017-04-10 16:37 | Emergency Department Note ---
Disposition Clinical Impression: Acute exacerbation of chronic obstructive airways disease, Hypoxia Disposition: Admitted As Inpatient Condition: Fair Time of Disposition: 18:10 SOB HPI - General Chief Complaint: ED Shortness of Breath/Dyspnea Stated Complaint: SOB/COUGH Time Seen by Provider: 04/10/17 16:29 Source: patient Mode of arrival: ambulatory Limitations: no limitations Nursing Notes Reviewed: Yes Vital Signs Reviewed: Yes - History of Present Illness 56-year-old male presented to the emergency department complaining of shortness of breath. He says he has been feeling this way for a couple weeks. It has slowly increased to today where he was having a very difficult time breathing. Patient has a history of COPD. He was seen by his primary care physician approximately one week ago diagnosed with an exacerbation sent home on steroids but was given not the correct dosing. He is only given 10 mg and called the doctor and they then increased his dose but he has not started taking yet. He is also given a Z-Zechariah at this time. Continue taking that. Said he was not feeling better. Actually is worsened. He does have oxygen at home that he only wears them he needs it patient states he rarely ever uses it. He also has a CPAP mask at home. That he uses every night. Patient has never had to be intubated for this issue. Patient says he does have inhalers that he uses when he has a hard time breathing. Patient otherwise having no chest pain or any other symptoms. He does not have any cardiac history. He had a heart catheterization done this summer which was normal. He rarely sees his primary care doctor. Patient states he has been on no long car rides no recent surgeries never has had pulmonary embolus or any blood clots. EMS when they picked him up said that he was 85%. On room air. They gave him Solu-Medrol and 2 DuoNeb treatments and said he sounded much better after that. Patient is not complaining of any fevers, nausea or vomiting, back pain, neck pain, blurry vision, headache, abdominal pain, change in bowel moves, pain with urination, pain or tingling of the arms or legs, generalized numbness or weakness. Patient has no other complaints at this time. - Related Data Home Medications Medication Instructions Recorded Confirmed Albuterol Sulfate [Ventolin Hfa] 2 puff IH Q6H PRN 05/04/16 04/10/17 Naproxen Sodium [Aleve] 220 mg PO BID PRN 05/04/16 04/10/17 Omeprazole [PriLOSEC] 20 mg PO DAILY 05/04/16 04/10/17 Tiotropium [Spiriva] 1 cap IH DAILY 05/04/16 04/10/17 Valsartan/Hydrochlorothiazide 1 tab PO DAILY 05/04/16 04/10/17 [Diovan Hct 160-12.5 mg Tab] Aspirin 81 mg PO DAILY 11/06/16 04/10/17 Diltiazem HCl [Diltiazem ER] 120 mg PO DAILY 11/06/16 04/10/17 Previous Rx's Medication Instructions Recorded Budesonide/Formoterol 160/4.5 2 puff IH BIDR #1 inhaler 05/06/16 [Symbicort 160/4.5] Allergies Allergy/AdvReac Type Severity Reaction Status Date / Time demoral Allergy Rash Uncoded 05/04/16 08:43 Review of Systems: 10 point review of systems done and negative unless otherwise stated in history of present illness. All systems ED: reviewed and negative except as stated. Review of Systems: As Per HPI Past Medical History - Past Medical History Attestation: Yes The following information was validated with the patient. Medical history: Reports: GERD, hypertension, COPD Psychiatric history: Reports: no psych history - Social History Smoking Status: Former smoker Smokeless Tobacco Status: No Alcohol use: Reports: none Drug use: Reports: none Physical Exam - General Limitations: no limitations - Head Head exam: atraumatic, normocephalic, normal inspection - Eye Eye exam: Present: normal appearance, PERRL, EOMI - ENT ENT exam: normal exam, normal oropharynx, mucous membranes moist - Neck Neck exam: Present: normal inspection, full ROM, trachea midline - Chest Chest inspection: Present: normal inspection, symmetric chest wall rise - Respiratory Respiratory exam: Present: normal lung sounds bilaterally. Absent: respiratory distress, wheezes, stridor, accessory muscle use, prolonged expiratory phase - Cardiovascular Cardiovascular exam: Present: regular rate, normal rhythm, normal heart sounds - Abdominal Exam Abdominal exam: Present: soft, Non-Tender. Absent: tenderness, distention, guarding, rebound, rigidity - Extremities Exam Extremities exam: Present: normal inspection, full ROM. Absent: tenderness, pedal edema - Expanded Lower Extremity Exam Neurovascular/Tendon exam: Absent: motor deficit, sensory deficit, tendon deficit - Back Exam Back exam: Present: normal inspection, full ROM. Absent: tenderness, CVA tenderness (R), CVA tenderness (L) - Neurological Exam Neurological exam: Present: alert, oriented X3 - Skin Skin exam: Present: warm, dry, intact, normal color Course Course Narrative: 56-year-old male presents to the emergency department with history COPD for shortness of breath. Patient was already given Solu-Medrol 125 mg by EMS prior to arrival as well as double DuoNeb treatment. After listening to him here he denies any wheezes but to complete the treatment and he was hypoxic arriving here at 85% while on room air. We felt that a single DuoNeb treatment here to complete the triple DuoNeb course was recommended. We gave this time. I did order basic labs including CBC, lactate, BMP as well as chest x-ray. Patient also had troponin and EKG done. At this time the patient continues to be hypoxic admission will be recommended. Vital Signs Temperature 98.0 F 04/10/17 16:30 Pulse Rate 136 04/10/17 16:30 Respiratory Rate 20 04/10/17 16:30 Blood Pressure 148/112 04/10/17 16:30 O2 Sat by Pulse Oximetry 89 04/10/17 16:30 Temperature 98.5 F 04/10/17 18:59 Pulse Rate 120 04/10/17 18:59 Respiratory Rate 18 04/10/17 18:59 Blood Pressure 141/74 04/10/17 18:59 O2 Sat by Pulse Oximetry 94 04/10/17 18:59 Oxygen Delivery Oxygen Delivery Nasal Cannula Shortness of Breath/Dyspnea - [facility] Narrative Medical decision making narrative: 56-year-old male presents to the emergency department complaining of shortness of breath. Patient does have history of COPD. Patient does have oxygen at home as well as CPAP and has never had to be intubated. We did do basic labs which all came back showing no acute abnormality. Chest x-ray did not show any pneumonia or any other acute abnormalities. This most likely is a COPD exacerbation. Patient does not have any risk factors for having pulmonary embolism. Patient's EKG did show tachycardia that most likely is due to the DuoNeb treatments that he got while he was here. He did lower after getting the treatments. Patient was noticeably short of breath whenever he take him off oxygen. The DuoNeb did help his breathing. He has had an increase in yellow sputum that he is coughing up. Patient was given a single DuoNeb treatment here as he was already given Solu-Medrol and double DuoNeb's eye EMS prior to arrival. Patient did not have any wheezing while here but he is still hypoxic. When we take him off oxygen he goes to 88%. When we turned him up to 4 L he sats at 94%. Due to him being hypoxic and speaking with patient and family we decided that admission would be the best course of action. Patient does agree with the plan. At this time I spoke with the hospitalist Dr. Thakur who agreed to admit the patient to their service. Patient is admitted to the hospitalist service in stable condition. Chest X-Ray 04/10/17 16:29 IMPRESSION: No acute cardiopulmonary process. D/ / Uvaldo Gilliam MD / Uvaldo Gilliam MD Interpreting Provider: Uvaldo Gilliam MD - Medical Records Medical records reviewed: Yes I reviewed the patient's medical records. - Lab Data Lab results reviewed: Yes I reviewed the patient's lab results. Result diagrams: 04/10/17 16:50 04/10/17 16:50 Lab Results 04/10/17 04/10/17 04/10/17 Range/Units 16:50 16:50 16:50 WBC 10.9 (4.3-11.1) K/mcL RBC 4.59 (4.19-5.50) M/mcL Hgb 13.4 (12.9-16.9) g/dL Hct 40.4 (37.5-50.1) % MCV 88.0 (83.0-100.0) fL MCH 29.2 (28.0-33.3) pg MCHC 33.2 (31.6-35.5) g/dL RDW 13.0 (11.5-14.5) % Plt Count 199 (140-400) K/mcL MPV 9.3 L (9.4-12.4) fL Immature Gran % 0.3 (0-4) % Seg Neutrophils % 87.1 % Lymphocytes % 3.7 % Monocytes % 8.4 % Eosinophils % 0.2 % Basophils % 0.3 % Neutrophils # 9.5 H (1.6-8.9) K/mcL Lymphocytes # 0.4 L (0.6-4.6) K/mcL Monocytes # 0.9 (0.0-1.3) K/mcL Eosinophils # 0.0 (0.0-0.6) K/mcL Basophils # 0.0 (0.0-0.2) K/mcL Sodium 135 L (136-145) mEq/L Potassium 3.9 (3.5-4.5) mEq/L Chloride 95 L (98-109) mEq/L Carbon Dioxide 28 (19-29) mEq/L BUN 12 (8-26) mg/dL Creatinine 0.88 (0.72-1.25) mg/dL Est GFR ( Amer) > 60 (> 60) Est GFR (Non-Af Amer) > 60 (> 60) BUN/Creatinine Ratio 14 (6-26) Glucose 124 H (70-99) mg/dL Calculated Osmolality 281 (280-300) Lactic Acid 1.8 (0.5-2.2) mmol/L Calcium 9.5 (8.6-10.8) mg/dL Troponin I (0-0.03) ng/mL B-Natriuretic Peptide (0-100) pg/mL 04/10/17 04/10/17 Range/Units 16:50 16:50 WBC (4.3-11.1) K/mcL RBC (4.19-5.50) M/mcL Hgb (12.9-16.9) g/dL Hct (37.5-50.1) % MCV (83.0-100.0) fL MCH (28.0-33.3) pg MCHC (31.6-35.5) g/dL RDW (11.5-14.5) % Plt Count (140-400) K/mcL MPV (9.4-12.4) fL Immature Gran % (0-4) % Seg Neutrophils % % Lymphocytes % % Monocytes % % Eosinophils % % Basophils % % Neutrophils # (1.6-8.9) K/mcL Lymphocytes # (0.6-4.6) K/mcL Monocytes # (0.0-1.3) K/mcL Eosinophils # (0.0-0.6) K/mcL Basophils # (0.0-0.2) K/mcL Sodium (136-145) mEq/L Potassium (3.5-4.5) mEq/L Chloride (98-109) mEq/L Carbon Dioxide (19-29) mEq/L BUN (8-26) mg/dL Creatinine (0.72-1.25) mg/dL Est GFR ( Amer) (> 60) Est GFR (Non-Af Amer) (> 60) BUN/Creatinine Ratio (6-26) Glucose (70-99) mg/dL Calculated Osmolality (280-300) Lactic Acid (0.5-2.2) mmol/L Calcium (8.6-10.8) mg/dL Troponin I 0.00 (0-0.03) ng/mL B-Natriuretic Peptide 20 (0-100) pg/mL - Radiology Data Radiology results reviewed: Yes I reviewed the patient's radiology results. - EKG Data EKG attestation: Yes I reviewed and interpreted this EKG. EKG results narrative: EKG done at 1630 IV by myself and attending shows sinus tachycardia rate of 119 , QRS 91, QTc 388, normal axis. There is no acute ST changes, no acute T-wave abnormalities, no signs of hypertrophy or heart strain, no signs of any heart blocks, no signs of WPW/Brugada syndrome. There is no old EKG to compare with at this time. Attestation Statement - Attestation Attestation: I, Vargas Portillo, examined this patient and my medical decision-making was reviewed with the HAND STEMMER/PA/Advanced Practice Nurse/Resident Physician. I agree with the documented findings, disposition and treatment plan as described except to the extent set forth below. 56-year-old male presents emergency Department with concerns of shortness of breath and cough. Patient states symptoms have been present over the past week. This feels similar to his previous COPD exacerbations. He saw his primary care provider who prescribed him 10 mg a day of prednisone which did not have improvement of his symptoms. Patient feels his breathing significantly worsened today. On evaluation in emergency department he dropped down to a SPO2 of 87% on room air. Patient uses CPAP and oxygen as needed at home. He became visibly dyspneic with conversation during the evaluation. Patient did not have obvious infiltrate on chest x-ray. He will be admitted to the hospital for further care and evaluation of acute COPD exacerbation. He was given Solu-Medrol by EMS.
[2017-04-10 16:57] LABS: Basophils % 0.3 %; Eosinophils % 0.2 %; Hematocrit 40.4 % (37.5-50.1); Hemoglobin 13.4 g/dL (12.9-16.9); Immature Granulocytes % 0.3 % (0-4); Lymphocytes # 0.4 K/mcL (0.6-4.6); Lymphocytes % 3.7 %; Mean Corpuscular HGB Conc 33.2 g/dL (31.6-35.5); Mean Corpuscular Hemoglobin 29.2 pg (28.0-33.3); Mean Platelet Volume 9.3 fL (9.4-12.4); Monocytes # 0.9 K/mcL (0.0-1.3); Monocytes % 8.4 %; Neutrophils # 9.5 K/mcL (1.6-8.9); Platelet Count 199 K/mcL (140-400); Red Blood Count 4.59 M/mcL (4.19-5.50); Segmented Neutrophils % 87.1 %
[2017-04-10 17:11] LABS: BUN/Creatinine Ratio 14 (6-26); Blood Urea Nitrogen 12 mg/dL (8-26); Calcium 9.5 mg/dL (8.6-10.8); Carbon Dioxide 28 mEq/L (19-29); Chloride 95 mEq/L (98-109); Glucose 124 mg/dL (70-99); Osmolality,Calculated 281 (280-300); Potassium 3.9 mEq/L (3.5-4.5); Sodium 135 mEq/L (136-145); eGFR For African Americans > 60 (> 60); eGFR For Non-African Americans > 60 (> 60)
[2017-04-10] MEDS ORDERED: Naloxone 0.4 MG/ML INJ IVP PRN (20:21)
[2017-04-10] MEDS ORDERED: *HR* Morphine 2 MG/ML SYRINGE IVP PRN (20:21)
[2017-04-10] MEDS ORDERED: Ondansetron 4 MG/2 ML VIAL IVP PRN (20:21)
--- NOTE | 2017-04-10 20:24 | Internal Med History&Physical ---
Date of Encounter: 04/10/17 Time of Encounter: 20:10 Assessment and Plan (1) Acute exacerbation of chronic obstructive airways disease Current visit: Yes Status: Acute Acute exacerbation of COPD with Acute Bronchitis and probable underlying interstitial lung disease - patient uses 2 L oxygen at night Continue DuoNeb breathing treatment, IV Solu-Medrol, Symbicort, Spiriva O2 via NC, empiric IV Rocephin Patient has a long occupational exposure to fiberglass, asbestos and other environmental toxins, as he worked in construction - probable underlying interstitial lung disease Sputum cultures - pending Chest x-ray - no acute process EKG - sinus tachycardia with no acute ST-T changes Troponin - 0.00 BNP - 20 Cardiac telemetry, pulse ox, labs in a.m., monitor closely (2) HTN (hypertension) Current visit: Yes Status: Chronic Essential hypertension, controlled, monitor Continue home dose of Cardizem, Valsartan/HCTZ Qualifiers: Hypertension type: essential hypertension Qualified Code(s): I10 - Essential (primary) hypertension (3) SHANNON (obstructive sleep apnea) Current visit: Yes Status: Chronic Continue CPAP (4) DVT prophylaxis Current visit: Yes Status: Acute Heparin subcutaneous Internal Medicine - H&P: HPI Chief complaint: Shortness of breath Admitted From: Emergency Dept Plans for Post Hospital Care: Home History of present illness: Mr. Kapadia is a 56 year old male with past medical history of hypertension, COPD, SHANNON and GERD. He presents to the ED with complaints of shortness of breath and cough. Examined in the room. Patient is awake and alert. Not in any distress. Able to provide all history. Able to speak in full sentences. No family members at bedside. Patient states he developed mild shortness of breath and cough about one week ago. Symptoms have gradually worsened. He started having productive cough with green colored sputum about 2 days ago. Shortness of breath is aggravated with exertion and has been gradually worsening. Patient uses oxygen only at night. He does not have a nebulizer machine. He states symptoms are severe. No alleviating factors. No other associated symptoms. Patient denies chest pain or palpitations. Denies headache or dizziness or vomiting or fever. No other acute complaints. Initial workup in the ED is negative. Patient was given DuoNeb breathing treatment which has improved his symptoms. States he feels better now. Patient is being admitted for acute COPD exacerbation. Patient has been explained about his condition and plan of care in detail. He understood and agreed. No unanswered questions. CODE STATUS full code. Past Med Surg Social Fam HX - Past Medical History Medical history: GERD, hypertension, COPD Psychiatric history: no psych history - Past Surgical History Surgical History: orthopedic, other - Social History Smoking Status: Former smoker Smokeless Tobacco Status: No Alcohol use: none Drug use: none - Family History Mother Living Status: Hx Family Endocrine Disorder: Yes (DM) Internal Medicine - H&P: Meds Albuterol Sulfate [Ventolin Hfa] 2 puff IH Q6H PRN 05/04/16 [History] Naproxen Sodium [Aleve] 220 mg PO BID PRN 05/04/16 [History] Omeprazole [PriLOSEC] 20 mg PO DAILY 05/04/16 [History] Tiotropium [Spiriva] 1 cap IH DAILY 05/04/16 [History] Valsartan/Hydrochlorothiazide [Diovan Hct 160-12.5 mg Tab] 1 tab PO DAILY [History] Budesonide/Formoterol 160/4.5 [Symbicort 160/4.5] 2 puff IH BIDR #1 inhaler 08/17 [Rx] Aspirin 81 mg PO DAILY 11/06/16 [History] Diltiazem HCl [Diltiazem ER] 120 mg PO DAILY 11/06/16 [History] 3 Allergy/AdvReac Type Severity Reaction Status Date / Time demoral Allergy Rash Uncoded 05/04/16 08:43 All Systems PM: A 10-system review of systems was performed and is negative for pertinent findings except as documented above in the HPI. - Constitutional Constitutional: fatigue, no fever(s), no weakness - EENT Eyes: no blurry vision - Cardiovascular Cardiovascular ROS IM: dyspnea, dyspnea on exertion, no chest pain, no diaphoresis, no edema, no lightheadedness, no orthopnea, no palpitations, no syncope - Respiratory Respiratory: cough, dyspnea, dyspnea on exertion, wheezing, chest congestion, no hemoptysis - Gastrointestinal Gastrointestinal: no abdominal pain, no bloating, no constipation, no diarrhea, no hematemesis, no hematochezia, no loose stools, no nausea, no vomiting - Genitourinary Genitourinary ROS male: no dysuria - Neurological Neurological ROS: no abnormal gait, no confusion, no convulsions, no dizziness, no focal weakness, no loss of vision, no numbness, no tingling - Constitutional Vitals: Temp Pulse Resp BP Pulse Ox 98.5 F 120 18 141/74 94 04/10/17 18:59 04/10/17 18:59 04/10/17 18:59 04/10/17 18:59 04/10/17 18:59 General appearance: Present: cooperative, A&O X 3, pleasant, no acute distress, answers questions appropriately - Head Head exam: Present: atraumatic - Eye Eye exam: Present: EOMI - ENT ENT exam: Present: mucous membranes dry - Respiratory Respiratory exam: Present: wheezes (Mild bilateral). Absent: accessory muscle use, chest wall tenderness, rales, respiratory distress, rhonchi, tachypnea - Cardiovascular Cardiovascular exam: Present: RRR, +S1, +S2, tachycardia - GI/Abdominal GI/Abdominal exam: Present: soft. Absent: distended, firm, guarding, tenderness - Extremities Exam Extremities exam: Present: radial pulses palpable and symmetrical. Absent: calf tenderness, cyanotic, pedal edema - Neurological Exam Neurological exam: Present: alert, oriented X3, no focal deficits. Absent: facial droop, speech deficit Internal Med - H&P Results - Labs CBC & Chem 7: 04/10/17 16:50 04/10/17 16:50
[2017-04-10] MEDS: Budesonide/Formoterol 160/4.5 MDI IH SCH (21:26)
[2017-04-10] MEDS: Ipratropium/Albuterol Neb 3 ML IH SCH ×2 (21:26→23:15)
[2017-04-10] MEDS: cefTRIAXone 1,000 MG in Water for inj. (sterile) 10 ML IVP SCH (22:06)
[2017-04-10] MEDS: methylPREDNISolone 125 MG/2 ML VIAL IVP SCH (22:09)
[2017-04-11] MEDS: Ipratropium/Albuterol Neb 3 ML IH SCH ×6 (04:35→23:22)
[2017-04-11] MEDS: *HR* Heparin 5,000 UNIT/ML VIAL SQ SCH ×2 (05:47→17:36)
[2017-04-11 05:59] LABS: BUN/Creatinine Ratio 19 (6-26); Blood Urea Nitrogen 16 mg/dL (8-26); Calcium 9.5 mg/dL (8.6-10.8); Carbon Dioxide 28 mEq/L (19-29); Chloride 96 mEq/L (98-109); Glucose 218 mg/dL (70-99); Osmolality,Calculated 288 (280-300); Potassium 4.1 mEq/L (3.5-4.5); Sodium 135 mEq/L (136-145); eGFR For African Americans > 60 (> 60); eGFR For Non-African Americans > 60 (> 60)
[2017-04-11 06:02] LABS: Hematocrit 40.3 % (37.5-50.1); Hemoglobin 12.8 g/dL (12.9-16.9); Immature Granulocytes % 0.3 % (0-4); Lymphocytes # 0.3 K/mcL (0.6-4.6); Lymphocytes % 3.6 %; Mean Corpuscular HGB Conc 31.8 g/dL (31.6-35.5); Mean Corpuscular Hemoglobin 28.4 pg (28.0-33.3); Mean Corpuscular Volume 89.4 fL (83.0-100.0); Mean Platelet Volume 9.7 fL (9.4-12.4); Monocytes # 0.2 K/mcL (0.0-1.3); Monocytes % 2.6 %; Neutrophils # 7.3 K/mcL (1.6-8.9); Platelet Count 214 K/mcL (140-400); Red Blood Count 4.51 M/mcL (4.19-5.50); Red Cell Distribution Width 13.1 % (11.5-14.5); Segmented Neutrophils % 93.5 %
[2017-04-11] MEDS: Tiotropium 18 MCG inhalation IH SCH (08:11)
[2017-04-11] MEDS: Budesonide/Formoterol 160/4.5 MDI IH SCH ×2 (08:14→19:57)
[2017-04-11] MEDS: Aspirin 81 MG TAB.CHEW PO SCH (09:15)
[2017-04-11] MEDS: Valsartan 160 MG TABLET PO SCH (09:15)
[2017-04-11] MEDS: methylPREDNISolone 125 MG/2 ML VIAL IVP SCH ×3 (09:15→22:31)
[2017-04-11] MEDS: hydroCHLOROthiazide 25 MG TABLET PO SCH (09:16)
[2017-04-11] MEDS: Diltiazem CD (24hr) 120 MG CAPSULE PO SCH (09:16)
[2017-04-11] MEDS: Acetaminophen 325 MG TABLET PO PRN ×2 (09:22→17:38)
--- NOTE | 2017-04-11 13:26 | Internal Med Progress Note ---
Date of Encounter: 04/11/17 Time of Encounter: 09:15 - Assessment and plan (1) Acute exacerbation of chronic obstructive airways disease Current Visit: Yes Status: Acute Assessment and plan: Acute exacerbation of COPD with acute respiratory failure. Pt does not wear 02 at home normally, is wearing 2L 02/nc now. Pt with productive cough with brown sputum. 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 (2) SHANNON (obstructive sleep apnea) Current Visit: Yes Status: Chronic Assessment and plan: CPAP at home, continue here. (3) HTN (hypertension) Current Visit: Yes Status: Chronic Assessment and plan: Blood pressure controlled. continue home medications. Qualifiers: Hypertension type: essential hypertension Qualified Code(s): I10 - Essential (primary) hypertension (4) DVT prophylaxis Current Visit: Yes Status: Acute Assessment and plan: Heparin SQ. - Time Spent With Patient less than 15 minutes - Subjective Interval history: Patient was seen and assessed at bedside at 9:15 a.m. Patient with hacking productive cough, with brown sputum. He denies fever or chills, n/v/d, diaphoresis, or abdominal pain. Pt is a non-smoker. Pt will stay for continued breathing treatments and 02 supplementation, most likely will discharge in the a.m. - Constitutional Vitals: Temp Pulse Resp BP Pulse Ox 97.9 F 104 18 132/65 96 04/11/17 11:38 04/11/17 11:38 04/11/17 11:38 04/11/17 11:38 04/11/17 11:38 General appearance: Present: cooperative, A&O X 3, pleasant, no acute distress, answers questions appropriately - Head Head exam: Present: atraumatic, normal inspection, normocephalic - Eye Eye exam: Present: normal appearance, conjuntiva pink, sclera anicteric - Neck Neck exam general surgery: Present: normal inspection, supple, trachea midline. Absent: lymphadenopathy, tenderness - Respiratory Respiratory exam: Present: decreased breath sounds, CTAB, rhonchi. Absent: accessory muscle use, chest wall tenderness, rales, respiratory distress, wheezes - Cardiovascular Cardiovascular exam: Present: RRR, +S1, +S2. Absent: diastolic murmur, gallop, rubs, systolic murmur - GI/Abdominal GI/Abdominal exam: Present: normal bowel sounds, soft. Absent: distended, hepatomegaly, tenderness - Extremities Exam Extremities exam: Present: normal inspection, warm, radial pulses palpable and symmetrical. Absent: calf tenderness, cyanotic, pedal edema - Neurological Exam Neurological exam: Present: alert, oriented X3, no focal deficits. Absent: facial droop, speech deficit - Skin Skin exam: Present: dry, intact, normal color, warm. Absent: rash Internal Medicine: Result - Labs CBC & Chem 7: 04/11/17 05:22 04/11/17 05:22 Labs: Short CBC 04/11/17 Range/Units 05:22 WBC 7.8 (4.3-11.1) K/mcL Hgb 12.8 L (12.9-16.9) g/dL Hct 40.3 (37.5-50.1) % Plt Count 214 (140-400) K/mcL Neutrophils # 7.3 (1.6-8.9) K/mcL BMP 04/11/17 05:22 Sodium 135 L Potassium 4.1 Chloride 96 L Carbon Dioxide 28 BUN 16 Creatinine 0.86 Glucose 218 H Calcium 9.5 Consult Discharge Plan - Plan Referrals: Veronica Killian MD [Primary Care Provider] -
[2017-04-11] MEDS: cefTRIAXone 1,000 MG in Water for inj. (sterile) 10 ML IVP SCH (22:32)
[2017-04-12] MEDS: Ipratropium/Albuterol Neb 3 ML IH SCH ×3 (04:05→11:41)
[2017-04-12] MEDS: *HR* Heparin 5,000 UNIT/ML VIAL SQ SCH (06:00)
[2017-04-12] MEDS: Budesonide/Formoterol 160/4.5 MDI IH SCH (07:58)
[2017-04-12] MEDS: Tiotropium 18 MCG inhalation IH SCH (08:17)
[2017-04-12] MEDS: hydroCHLOROthiazide 25 MG TABLET PO SCH (08:33)
[2017-04-12] MEDS: Valsartan 160 MG TABLET PO SCH (08:34)
[2017-04-12] MEDS: Aspirin 81 MG TAB.CHEW PO SCH (08:35)
[2017-04-12] MEDS: Diltiazem CD (24hr) 120 MG CAPSULE PO SCH (08:35)
[2017-04-12] MEDS: methylPREDNISolone 125 MG/2 ML VIAL IVP SCH (08:35)
[2017-04-12 11:38] VITALS: BP 122/78
--- NOTE | 2017-04-12 12:01 | Discharge Summary ---
Date of Encounter: 04/12/17 Time of Encounter: 09:15 - Discharge Diagnosis (1) Acute exacerbation of chronic obstructive airways disease Priority: Primary Status: Acute Comments: Acute exacerbation of COPD with acute respiratory failure. Pt does not wear 02 at home normally, is wearing 3L 02/nc now. Pt with productive cough with brown sputum. Lungs diminished, ronchi heard in left posterior phillip, pt states that he feels better and is ready to go home. Continue DuoNebs, prednisone taper, Symbicort, Spiriva, Mucinex and Levaquin since he had Zithromax last week without change in symptoms. O2, titrate as needed to maintain sats > 92% Patient has a long occupational exposure to fiberglass, asbestos and other environmental toxins, as he worked in construction - probable underlying interstitial lung disease Sputum culture is negative Troponins negative, BNP negative WNL. Pt without leukocytosis, fever, tachypnea , no tachycardia. Chest xray negative. Pt has requested a nebulizer for home since these symptoms are becoming more frequent. (2) SHANNON (obstructive sleep apnea) Priority: Secondary Status: Chronic Comments: CPAP at home, continue. Pt wears 02 at night with cpap. (3) HTN (hypertension) Priority: Secondary Status: Chronic Comments: Blood pressure is well controlled, continue home medications. Qualifiers: Hypertension type: essential hypertension Qualified Code(s): I10 - Essential (primary) hypertension (4) DVT prophylaxis Priority: Secondary Status: Acute Comments: Heparin SQ - Discharge Medications Prescriptions: Ipratropium/Albuterol Neb [Duoneb] 3 ml IH [id number] #40 inhsol GuaiFENesin ER [Mucinex] 600 mg PO BID PRN #60 tbbp.12hr PRN Reason: Cough hydroCHLOROthiazide [Hydrochlorothiazide] 12.5 mg PO DAILY #30 tablet Levofloxacin [Levaquin] 750 mg PO DAILY #7 tablet predniSONE [PredniSONE] 10 mg PO DAILY #31 tablet Home Medications: Albuterol Sulfate [Ventolin Hfa] 2 puff IH Q6H PRN 05/04/16 [History] Naproxen Sodium [Aleve] 220 mg PO BID PRN 05/04/16 [History] Omeprazole [PriLOSEC] 20 mg PO DAILY 05/04/16 [History] Tiotropium [Spiriva] 18 mcg IH DAILY 05/04/16 [History] Valsartan/Hydrochlorothiazide [Diovan Hct 160-12.5 mg Tab] 1 tab PO DAILY [History] Budesonide/Formoterol 160/4.5 [Symbicort 160/4.5] 2 puff IH BIDR #1 inhaler 08/17 [Rx] Aspirin 81 mg PO DAILY 11/06/16 [History] Diltiazem HCl [Diltiazem ER] 120 mg PO DAILY 11/06/16 [History] GuaiFENesin ER [Mucinex] 600 mg PO BID PRN #60 tbbp.12hr 04/12/17 [Rx] Ipratropium/Albuterol Neb [Duoneb] 3 ml IH [id number] #40 inhsol 04/12/17 [Rx] Levofloxacin [Levaquin] 750 mg PO DAILY #7 tablet 04/12/17 [Rx] hydroCHLOROthiazide [Hydrochlorothiazide] 12.5 mg PO DAILY #30 tablet 04/12/17 [ Rx] predniSONE [PredniSONE] 10 mg PO DAILY #31 tablet 04/12/17 [Rx] Allergies/Adverse Reactions: 3 Allergy/AdvReac Type Severity Reaction Status Date / Time demoral Allergy Rash Uncoded 05/04/16 08:43 Date of admission: 04/10/17 20:21 Primary care physician: Veronica Killian MD Discharging clinician: Susannah Abel Anticipated date of discharge: 04/12/17 - Patient Status Disposition: Home, Self-Care Condition: Good Functional capacity at discharge: independent ambulation Overall status at discharge: patient is progressing back to baseline - Discharge Instructions Follow Up With: Veronica Killian MD [Primary Care Provider] - Additional Instructions: Please follow up with your PCP in the next 7-10 days for a follow up visit. Return to the ER as needed for any other problem or concerns or if your symptoms return or worsen. Take your medications as directed. Return to your normal activities and diet as tolerated. Increase your water intake daily. - Diet and Activity Activity: increase activity as tolerated, resume usual activities as tolerated, wear oxygen at night Diet: advance to your usual diet Hospital course: Mr. Kapadia is a 56 year old male with PMH of SHANNON, COPD, hypertension, smoking history. He presented with acute exacerbation of COPD and was treated with antibiotics, steroids, nebulizer treatments, guaifenesin. Patient states he feels significantly better and is ready to go home. He will be sent home with a nebulizer and supplies, as well as duo nebs, steroids taper, antibiotics, and Mucinex. Please see assessment and plan per hospital course. - Time Spent with Patient Total time spent providing and/or coordinating discharge services: Less than 30 minutes - Constitutional Vitals: Temp Pulse Resp BP Pulse Ox 97.4 F L 86 18 122/78 97 04/12/17 11:36 04/12/17 11:36 04/12/17 11:36 04/12/17 11:36 04/12/17 11:36 General appearance: Present: cooperative, A&O X 3, pleasant, no acute distress, answers questions appropriately - Head Head exam: Present: atraumatic, normal inspection, normocephalic - Eye Eye exam: Present: normal appearance, conjuntiva pink, sclera anicteric - Neck Neck exam general surgery: Present: normal inspection, supple, trachea midline. Absent: lymphadenopathy, tenderness - Respiratory Respiratory exam: Present: CTAB. Absent: accessory muscle use, rales, rhonchi, wheezes - Cardiovascular Cardiovascular exam: Present: RRR, +S1, +S2. Absent: diastolic murmur, gallop, rubs, systolic murmur - GI/Abdominal GI/Abdominal exam: Present: hepatomegaly, normal bowel sounds, soft, no peritoneal signs. Absent: distended, tenderness - Extremities Exam Extremities exam: Present: normal capillary refill, warm, radial pulses palpable and symmetrical. Absent: calf tenderness, cyanotic, pedal edema, tenderness - Neurological Exam Neurological exam: Present: alert, oriented X3, no focal deficits. Absent: facial droop, speech deficit - Skin Skin exam: Present: dry, intact, normal color, warm. Absent: rash
--- NOTE | 2017-04-12 15:00 | Electrocardiograph Report ---
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
== END 2017-04-12 14:30 | disposition home or self-care (01) | DRG 190 ==
LOC: EMEROO 16:28 → 3BNU 16:28
PROVIDERS: ADMIT Hospitalist; ATTEND Registered Nurse

== ENCOUNTER 2019-01-25 11:30 | Observation (INO) ==
[2019-01-25] MEDS ORDERED: Isovue-370 500 ML BOTTLE IVP ONE (12:02)
[2019-01-25 12:23] LABS: Basophils % 0.2 %; Eosinophils # 0.1 K/mcL (0.0-0.6); Eosinophils % 0.7 %; Hematocrit 38.1 % (37.5-50.1); Hemoglobin 12.4 g/dL (12.9-16.9); Immature Granulocytes % 0.3 % (0-4); Lymphocytes # 0.6 K/mcL (0.6-4.6); Lymphocytes % 6.4 %; Mean Corpuscular HGB Conc 32.5 g/dL (31.6-35.5); Mean Corpuscular Hemoglobin 29.4 pg (28.0-33.3); Mean Corpuscular Volume 90.3 fL (83.0-100.0); Mean Platelet Volume 9.1 fL (9.4-12.4); Monocytes # 0.6 K/mcL (0.0-1.3); Monocytes % 6.8 %; Neutrophils # 8.1 K/mcL (1.6-8.9); Platelet Count 239 K/mcL (140-400); Red Blood Count 4.22 M/mcL (4.19-5.50); Red Cell Distribution Width 13.4 % (11.5-14.5); Segmented Neutrophils % 85.6 %; White Blood Count 9.5 K/mcL (4.3-11.1)
[2019-01-25 12:56] LABS: Alanine Aminotransferase 15 Units/L (7-52); Albumin 3.9 g/dL (3.5-5.7); Albumin/Globulin Ratio 1.3 (1.1-2.2); Alkaline Phosphatase 62 Units/L (34-104); Aspartate Amino Transferase 13 Units/L (13-39); BUN/Creatinine Ratio 13 (6-26); Bilirubin,Indirect 0.5 mg/dL (0.0-1.2); Bilirubin,Total 0.5 mg/dL (0.3-1.0); Blood Urea Nitrogen 12 mg/dL (6-20); Calcium 9.3 mg/dL (8.6-10.3); Carbon Dioxide 32 mEq/L (23-29); Chloride 95 mEq/L (98-107); Globulin 3.1 g/dL (2.4-3.5); Glucose 134 mg/dL (70-105); Lipase 3 Units/L (11-82); Osmolality,Calculated 288 (280-300); Potassium 3.6 mEq/L (3.5-5.1); Sodium 138 mEq/L (136-145); eGFR For African Americans > 60 (> 60); eGFR For Non-African Americans > 60 (> 60)
[2019-01-25] MEDS ORDERED: *HR* Nalbuphine 10 MG/ML AMPUL IV ONE (14:53)
[2019-01-25] MEDS ORDERED: Piperacillin/Tazobactam 3.375 GM in 0.9 % Sodium Chloride Mini Bag 100 ML IVPB ONE (14:54)
[2019-01-25] MEDS ORDERED: Naloxone 0.4 MG/ML INJ IVP PRN (17:13)
[2019-01-25] MEDS ORDERED: *HR* OxyCODONE Immed Rel 5 MG TABLET PO PRN (17:13)
[2019-01-25] MEDS: *HR* HYDROcodone/Acet 5/325 mg TABLET PO PRN (21:28)
[2019-01-25] MEDS: Budesonide/Formoterol 160/4.5 1 PUFF INH IH SCH (22:18)
[2019-01-25] MEDS: 0.9 % Sodium Chloride 1,000 ML IVC SCH (22:34)
[2019-01-26] MEDS: Ipratropium/Albuterol Neb 3 ML IH SCH ×7 (00:08→23:49)
[2019-01-26] MEDS: 0.9 % Sodium Chloride 1,000 ML IVC SCH (01:40)
[2019-01-26 04:31] LABS: Basophils % 0.6 %; Eosinophils # 0.3 K/mcL (0.0-0.6); Hematocrit 37.1 % (37.5-50.1); Immature Granulocytes % 0.6 % (0-4); Lymphocytes # 0.6 K/mcL (0.6-4.6); Mean Corpuscular HGB Conc 32.3 g/dL (31.6-35.5); Mean Corpuscular Hemoglobin 29.8 pg (28.0-33.3); Mean Corpuscular Volume 92.1 fL (83.0-100.0); Mean Platelet Volume 9.2 fL (9.4-12.4); Monocytes # 0.6 K/mcL (0.0-1.3); Monocytes % 9.2 %; Neutrophils # 5.3 K/mcL (1.6-8.9); Platelet Count 248 K/mcL (140-400); Red Blood Count 4.03 M/mcL (4.19-5.50); Red Cell Distribution Width 13.7 % (11.5-14.5); Segmented Neutrophils % 76.6 %; White Blood Count 6.9 K/mcL (4.3-11.1)
[2019-01-26 04:51] LABS: BUN/Creatinine Ratio 13 (6-26); Blood Urea Nitrogen 11 mg/dL (6-20); Carbon Dioxide 29 mEq/L (23-29); Chloride 99 mEq/L (98-107); Glucose 97 mg/dL (70-105); Osmolality,Calculated 283 (280-300); Potassium 3.9 mEq/L (3.5-5.1); Sodium 137 mEq/L (136-145); eGFR For African Americans > 60 (> 60); eGFR For Non-African Americans > 60 (> 60)
[2019-01-26] MEDS: Budesonide/Formoterol 160/4.5 1 PUFF INH IH SCH ×2 (07:09→20:38)
[2019-01-26] MEDS: *HR* HYDROcodone/Acet 5/325 mg TABLET PO PRN ×3 (07:55→20:52)
[2019-01-26] MEDS ORDERED: Diltiazem CD (24hr) 120 MG CAPSULE PO SCH (09:00)
[2019-01-26] MEDS ORDERED: ROFLUMILAST 250 MCG PO SCH (09:00)
[2019-01-26] MEDS ORDERED: Tiotropium 18 MCG inhalation IH SCH (09:00)
[2019-01-26] MEDS ORDERED: hydroCHLOROthiazide 25 MG TABLET PO SCH ×3 (09:00→12:15)
[2019-01-26] MEDS ORDERED: Valsartan 160 MG TABLET PO SCH (09:00)
[2019-01-26] MEDS: Acetaminophen 325 MG TABLET PO PRN (12:58)
[2019-01-26] MEDS ORDERED: Pantoprazole 40 MG VIAL IVP ONE (14:48)
[2019-01-26] MEDS: Piperacillin/Tazobactam 3.375 GM in 0.9 % Sodium Chloride Mini Bag 100 ML IVPB SCH ×2 (16:42→23:53)
[2019-01-27] MEDS: Acetaminophen 325 MG TABLET PO PRN ×2 (00:25→07:32)
[2019-01-27] MEDS: Ipratropium/Albuterol Neb 3 ML IH SCH ×6 (04:03→23:11)
[2019-01-27 04:31] LABS: Basophils % 0.6 %; Eosinophils # 0.3 K/mcL (0.0-0.6); Eosinophils % 5.2 %; Hematocrit 35.5 % (37.5-50.1); Hemoglobin 11.5 g/dL (12.9-16.9); Immature Granulocytes % 0.4 % (0-4); Lymphocytes # 0.8 K/mcL (0.6-4.6); Lymphocytes % 15.6 %; Mean Corpuscular HGB Conc 32.4 g/dL (31.6-35.5); Mean Corpuscular Hemoglobin 29.6 pg (28.0-33.3); Mean Corpuscular Volume 91.3 fL (83.0-100.0); Mean Platelet Volume 8.8 fL (9.4-12.4); Monocytes # 0.6 K/mcL (0.0-1.3); Monocytes % 12.4 %; Neutrophils # 3.3 K/mcL (1.6-8.9); Platelet Count 238 K/mcL (140-400); Red Blood Count 3.89 M/mcL (4.19-5.50); Red Cell Distribution Width 13.4 % (11.5-14.5); Segmented Neutrophils % 65.8 %
[2019-01-27 04:39] LABS: BUN/Creatinine Ratio 10 (6-26); Blood Urea Nitrogen 8 mg/dL (6-20); Calcium 9.2 mg/dL (8.6-10.3); Carbon Dioxide 28 mEq/L (23-29); Chloride 99 mEq/L (98-107); Glucose 111 mg/dL (70-105); Osmolality,Calculated 283 (280-300); Potassium 3.7 mEq/L (3.5-5.1); Sodium 137 mEq/L (136-145); eGFR For African Americans > 60 (> 60); eGFR For Non-African Americans > 60 (> 60)
[2019-01-27] MEDS: *HR* Enoxaparin 40 MG/0.4 ML SYRINGE SQ SCH (05:40)
[2019-01-27] MEDS: Budesonide/Formoterol 160/4.5 1 PUFF INH IH SCH ×2 (07:28→20:03)
[2019-01-27] MEDS ORDERED: Ringers Solution, Lactated 1,000 ML IVC SCH (07:45)
[2019-01-27] MEDS ORDERED: 0.9 % Sodium Chloride 1,000 ML ONE (08:45)
[2019-01-27] MEDS ORDERED: 0.9 % Sodium Chloride 1,000 ML IVC SCH (08:45)
[2019-01-27] MEDS: Piperacillin/Tazobactam 3.375 GM in 0.9 % Sodium Chloride Mini Bag 100 ML IVPB SCH ×2 (08:49→16:24)
[2019-01-27] MEDS: Diltiazem CD (24hr) 120 MG CAPSULE PO SCH ×2 (08:49→10:17)
[2019-01-27] MEDS: *HR* HYDROcodone/Acet 5/325 mg TABLET PO PRN ×2 (10:29→16:24)
[2019-01-27] MEDS: Loratadine 10 MG TABLET PO SCH (10:30)
[2019-01-27] MEDS: Lactobacillus 1 EACH CAP.SPRINK PO SCH (10:31)
[2019-01-27] MEDS: Pantoprazole 40 MG VIAL IVP SCH (10:31)
[2019-01-28] MEDS: Piperacillin/Tazobactam 3.375 GM in 0.9 % Sodium Chloride Mini Bag 100 ML IVPB SCH ×2 (00:02→08:24)
[2019-01-28] MEDS: Ipratropium/Albuterol Neb 3 ML IH SCH ×3 (03:41→11:18)
[2019-01-28] MEDS: *HR* Enoxaparin 40 MG/0.4 ML SYRINGE SQ SCH (05:40)
[2019-01-28] MEDS: Acetaminophen 325 MG TABLET PO PRN (05:43)
[2019-01-28] MEDS: Budesonide/Formoterol 160/4.5 1 PUFF INH IH SCH (07:48)
[2019-01-28] MEDS: Diltiazem CD (24hr) 120 MG CAPSULE PO SCH (08:24)
[2019-01-28] MEDS: Loratadine 10 MG TABLET PO SCH (08:24)
[2019-01-28] MEDS: Lactobacillus 1 EACH CAP.SPRINK PO SCH (08:24)
[2019-01-28] MEDS: Pantoprazole 40 MG VIAL IVP SCH (08:25)
[2019-01-28 11:22] LABS: Basophils % 0.6 %; Eosinophils # 0.3 K/mcL (0.0-0.6); Eosinophils % 4.9 %; Hematocrit 35.1 % (37.5-50.1); Hemoglobin 11.5 g/dL (12.9-16.9); Immature Granulocytes % 0.6 % (0-4); Lymphocytes # 0.8 K/mcL (0.6-4.6); Lymphocytes % 14.6 %; Mean Corpuscular HGB Conc 32.8 g/dL (31.6-35.5); Mean Corpuscular Hemoglobin 29.3 pg (28.0-33.3); Mean Corpuscular Volume 89.3 fL (83.0-100.0); Mean Platelet Volume 8.7 fL (9.4-12.4); Monocytes # 0.6 K/mcL (0.0-1.3); Monocytes % 11.7 %; Neutrophils # 3.5 K/mcL (1.6-8.9); Platelet Count 248 K/mcL (140-400); Red Blood Count 3.93 M/mcL (4.19-5.50); Red Cell Distribution Width 13.2 % (11.5-14.5); Segmented Neutrophils % 67.6 %; White Blood Count 5.1 K/mcL (4.3-11.1)
[2019-01-28] MEDS ORDERED: FLU Vac QV 19-20 (6Month+)/PF 0.5 ML SYRINGE IM ONE (11:28)
[2019-01-28 11:44] LABS: BUN/Creatinine Ratio 7 (6-26); Blood Urea Nitrogen 6 mg/dL (6-20); Calcium 9.6 mg/dL (8.6-10.3); Carbon Dioxide 29 mEq/L (23-29); Chloride 102 mEq/L (98-107); Glucose 113 mg/dL (70-105); Osmolality,Calculated 280 (280-300); Potassium 3.8 mEq/L (3.5-5.1); Sodium 136 mEq/L (136-145); eGFR For African Americans > 60 (> 60); eGFR For Non-African Americans > 60 (> 60)
[2019-01-28 11:59] VITALS: BP 144/82
== END 2019-01-28 13:44 | disposition home or self-care (01) ==
LOC: EMEROOARM 11:30 → 3ANU 11:30 → SUATTDRO 15:56 → 3ANU 16:55
PROVIDERS: ADMIT Pharmacist; ATTEND Student in an Organized Health Care Education/Training Program

== ENCOUNTER 2019-04-23 20:48 | Observation (INO) ==
[2019-04-23 21:54] LABS: Basophils % 0.4 %; Eosinophils % 0.6 %; Hematocrit 42.2 % (37.5-50.1); Immature Granulocytes % 0.6 % (0-4); Lymphocytes # 0.2 K/mcL (0.6-4.6); Lymphocytes % 4.2 %; Mean Corpuscular HGB Conc 33.2 g/dL (31.6-35.5); Mean Corpuscular Hemoglobin 28.7 pg (28.0-33.3); Mean Corpuscular Volume 86.7 fL (83.0-100.0); Mean Platelet Volume 8.9 fL (9.4-12.4); Monocytes # 0.5 K/mcL (0.0-1.3); Monocytes % 10.3 %; Neutrophils # 4.4 K/mcL (1.6-8.9); Platelet Count 222 K/mcL (140-400); Red Blood Count 4.87 M/mcL (4.19-5.50); Red Cell Distribution Width 13.6 % (11.5-14.5); Segmented Neutrophils % 83.9 %; White Blood Count 5.2 K/mcL (4.3-11.1)
[2019-04-23 22:16] LABS: BUN/Creatinine Ratio 15 (6-26); Blood Urea Nitrogen 13 mg/dL (6-20); Calcium 9.5 mg/dL (8.6-10.3); Carbon Dioxide 28 mEq/L (23-29); Chloride 94 mEq/L (98-107); Glucose 101 mg/dL (70-105); Osmolality,Calculated 278 (280-300); Potassium 3.8 mEq/L (3.5-5.1); Sodium 134 mEq/L (136-145); eGFR For African Americans > 60 (> 60); eGFR For Non-African Americans > 60 (> 60)
[2019-04-23 22:17] LABS: Troponin I < 0.03 ng/mL (< 0.04)
[2019-04-23] MEDS ORDERED: 0.9 % Sodium Chloride 1,000 ML IV ONE (22:27)
[2019-04-24] MEDS ORDERED: Ondansetron ODT 4 MG TAB.RAPDIS SL PRN (00:40)
[2019-04-24] MEDS ORDERED: Naloxone 0.4 MG/ML INJ IVP PRN (00:40)
[2019-04-24 01:09] LABS: Hematocrit 40.1 % (37.5-50.1); Hemoglobin 13.1 g/dL (12.9-16.9); Mean Corpuscular HGB Conc 32.7 g/dL (31.6-35.5); Mean Corpuscular Hemoglobin 29.2 pg (28.0-33.3); Mean Corpuscular Volume 89.3 fL (83.0-100.0); Platelet Count 197 K/mcL (140-400); Red Blood Count 4.49 M/mcL (4.19-5.50); Red Cell Distribution Width 13.5 % (11.5-14.5); White Blood Count 5.8 K/mcL (4.3-11.1)
[2019-04-24 01:17] LABS: BUN/Creatinine Ratio 16 (6-26); Blood Urea Nitrogen 14 mg/dL (6-20); Calcium 8.9 mg/dL (8.6-10.3); Carbon Dioxide 27 mEq/L (23-29); Chloride 98 mEq/L (98-107); Glucose 197 mg/dL (70-105); Osmolality,Calculated 284 (280-300); Potassium 3.7 mEq/L (3.5-5.1); Sodium 134 mEq/L (136-145); eGFR For African Americans > 60 (> 60); eGFR For Non-African Americans > 60 (> 60)
[2019-04-24] MEDS: Ipratropium/Albuterol Neb 3 ML IH SCH ×5 (03:47→21:53)
[2019-04-24] MEDS: Budesonide/Formoterol 160/4.5 1 PUFF INH IH SCH ×3 (03:47→21:53)
[2019-04-24] MEDS: *HR* Heparin 5,000 UNIT/ML VIAL SQ SCH ×2 (05:02→18:26)
[2019-04-24] MEDS ORDERED: (Roflumilast [Daliresp] 250 MCG) PO SCH (09:00)
[2019-04-24] MEDS: Aspirin 81 MG TAB.CHEW PO SCH (09:32)
[2019-04-24] MEDS: Diltiazem CD (24hr) 120 MG CAPSULE PO SCH (09:32)
[2019-04-24] MEDS: predniSONE 20 MG TABLET PO SCH (09:32)
[2019-04-24] MEDS: Loratadine 10 MG TABLET PO SCH (09:32)
[2019-04-24] MEDS ORDERED: Albuterol 2.5 MG/3 ML NEBULIZER IH PRN (10:14)
[2019-04-24] MEDS ORDERED: Azithromycin 500 MG in 0.9 % Sodium Chloride 250 ML IVPB SCH (19:00)
[2019-04-25] MEDS: Ipratropium/Albuterol Neb 3 ML IH SCH ×3 (03:36→15:39)
[2019-04-25] MEDS: *HR* Heparin 5,000 UNIT/ML VIAL SQ SCH (06:09)
[2019-04-25 06:16] LABS: Basophils % 0.1 %; Hematocrit 39.7 % (37.5-50.1); Hemoglobin 12.9 g/dL (12.9-16.9); Immature Granulocytes % 0.6 % (0-4); Lymphocytes # 0.3 K/mcL (0.6-4.6); Lymphocytes % 4.8 %; Mean Corpuscular HGB Conc 32.5 g/dL (31.6-35.5); Mean Corpuscular Hemoglobin 28.3 pg (28.0-33.3); Mean Corpuscular Volume 87.1 fL (83.0-100.0); Mean Platelet Volume 9.4 fL (9.4-12.4); Monocytes # 0.7 K/mcL (0.0-1.3); Monocytes % 9.6 %; Neutrophils # 6.1 K/mcL (1.6-8.9); Platelet Count 219 K/mcL (140-400); Red Blood Count 4.56 M/mcL (4.19-5.50); Red Cell Distribution Width 13.3 % (11.5-14.5); Segmented Neutrophils % 84.9 %; White Blood Count 7.1 K/mcL (4.3-11.1)
[2019-04-25 06:39] LABS: BUN/Creatinine Ratio 28 (6-26); Blood Urea Nitrogen 19 mg/dL (6-20); Calcium 8.9 mg/dL (8.6-10.3); Carbon Dioxide 28 mEq/L (23-29); Chloride 101 mEq/L (98-107); Glucose 132 mg/dL (70-105); Osmolality,Calculated 294 (280-300); Potassium 3.7 mEq/L (3.5-5.1); Sodium 140 mEq/L (136-145); eGFR For African Americans > 60 (> 60); eGFR For Non-African Americans > 60 (> 60)
[2019-04-25] MEDS: predniSONE 20 MG TABLET PO SCH (09:57)
[2019-04-25] MEDS: Aspirin 81 MG TAB.CHEW PO SCH (09:58)
[2019-04-25] MEDS: Loratadine 10 MG TABLET PO SCH (09:58)
[2019-04-25] MEDS: Diltiazem CD (24hr) 120 MG CAPSULE PO SCH (09:58)
[2019-04-25] MEDS: Budesonide/Formoterol 160/4.5 1 PUFF INH IH SCH (10:33)
[2019-04-25 11:25] VITALS: BP 126/72
== END 2019-04-25 16:04 | disposition home or self-care (01) ==
LOC: 3BNU 20:48 → EMEROOARM 20:48 → 3BNU 23:46
PROVIDERS: ADMIT Internal Medicine; ATTEND Internal Medicine

== ENCOUNTER 2020-02-18 18:56 | Inpatient (IN) ==
[2020-02-18] MEDS ORDERED: methylPREDNISolone 125 MG/2 ML VIAL IVP ONE (19:30)
[2020-02-18] MEDS ORDERED: Ipratropium/Albuterol Neb 3 ML IH ONE (19:30)
[2020-02-18] MEDS ORDERED: Azithromycin 500 MG in 0.9 % Sodium Chloride 250 ML IVPB ONE (19:31)
[2020-02-18 19:45] LABS: Basophils # 0.1 K/mcL (0.0-0.2); Basophils % 0.8 %; Eosinophils # 0.6 K/mcL (0.0-0.6); Hematocrit 39.5 % (37.5-50.1); Immature Granulocytes % 0.2 % (0-4); Lymphocytes # 0.7 K/mcL (0.6-4.6); Lymphocytes % 8.4 %; Mean Corpuscular HGB Conc 32.9 g/dL (31.6-35.5); Mean Corpuscular Hemoglobin 29.6 pg (28.0-33.3); Mean Platelet Volume 9.2 fL (9.4-12.4); Monocytes # 0.9 K/mcL (0.0-1.3); Monocytes % 10.4 %; Neutrophils # 6.5 K/mcL (1.6-8.9); Platelet Count 215 K/mcL (140-400); Red Blood Count 4.39 M/mcL (4.19-5.50); Red Cell Distribution Width 12.3 % (11.5-14.5); Segmented Neutrophils % 73.2 %; White Blood Count 8.8 K/mcL (4.3-11.1)
[2020-02-18 20:10] LABS: BUN/Creatinine Ratio 23 (6-26); Blood Urea Nitrogen 26 mg/dL (6-20); Calcium 9.6 mg/dL (8.6-10.3); Carbon Dioxide 28 mEq/L (23-29); Chloride 99 mEq/L (98-107); Glucose 104 mg/dL (70-105); Osmolality,Calculated 293 (280-300); Potassium 3.8 mEq/L (3.5-5.1); Sodium 139 mEq/L (136-145); eGFR For African Americans > 60 (> 60); eGFR For Non-African Americans > 60 (> 60)
[2020-02-18 20:11] LABS: Troponin I < 0.03 ng/mL (< 0.04)
[2020-02-18] MEDS ORDERED: Naloxone 0.4 MG/ML INJ IVP PRN (22:26)
[2020-02-18] MEDS ORDERED: Albuterol 2.5 MG/3 ML NEBULIZER IH PRN (22:26)
[2020-02-18] MEDS ORDERED: Ondansetron 4 MG/2 ML VIAL IVP PRN (22:26)
[2020-02-18] MEDS: MethylPREDNISolone 40 MG/ML VIAL IVP SCH (23:06)
[2020-02-18] MEDS: *HR* Heparin 5,000 UNIT/ML VIAL SQ SCH (23:06)
[2020-02-18] MEDS: Acetaminophen 325 MG TABLET PO PRN (23:12)
[2020-02-18] MEDS: Ipratropium/Albuterol Neb 3 ML IH SCH (23:22)
[2020-02-19] MEDS: Ipratropium/Albuterol Neb 3 ML IH SCH ×6 (03:48→23:36)
[2020-02-19] MEDS: *HR* Heparin 5,000 UNIT/ML VIAL SQ SCH ×3 (05:24→20:21)
[2020-02-19] MEDS: Budesonide/Formoterol 160/4.5 1 PUFF INH IH SCH ×2 (08:04→19:36)
[2020-02-19] MEDS: Furosemide 40 MG TABLET PO SCH (08:44)
[2020-02-19] MEDS: MethylPREDNISolone 40 MG/ML VIAL IVP SCH ×2 (08:44→17:20)
[2020-02-19] MEDS: Aspirin Enteric Coated 81 MG Tablet PO SCH (08:44)
[2020-02-19] MEDS: hydroCHLOROthiazide 25 MG TABLET PO SCH (08:44)
[2020-02-19] MEDS: DilTIAZem CD (24hr) 120 MG CAP.ER.24H PO SCH (08:44)
[2020-02-19] MEDS: Valsartan 160 MG TABLET PO SCH (08:44)
[2020-02-19] MEDS: Azithromycin 500 MG in 0.9 % Sodium Chloride 250 ML IVPB SCH (08:45)
[2020-02-19] MEDS: DALIRESP 500 MCG PO SCH (08:45)
[2020-02-19] MEDS ORDERED: predniSONE 20 MG TABLET PO SCH (09:00)
[2020-02-19] MEDS: *HR* Acetylcysteine 20% 600 MG/3 ML ORAL SYRINGE PO SCH (10:06)
[2020-02-19] MEDS: Tiotropium 18 MCG inhalation IH SCH (10:06)
[2020-02-19] MEDS ORDERED: Loratadine 10 MG TABLET PO PRN (11:30)
[2020-02-19] MEDS ORDERED: hydrOXYzine pamoate 25 MG CAPSULE PO PRN (11:30)
[2020-02-19 13:08] LABS: Adenovirus Not Detected (Not Detect); Bordetella Pertussis Not Detected (Not Detect); Chlamydophila pneumoniae Not Detected (Not Detect); Coronavirus 229E Not Detected (Not Detect); Coronavirus HKU1 Not Detected (Not Detect); Coronavirus NL63 Not Detected (Not Detect); Coronavirus OC43 Not Detected (Not Detect); Human Metapneumovirus Not Detected (Not Detect); Human Rhinovirus/Enterovirus DETECTED (Not Detect); Influenza A Subtype 2009 H1 Not Detected (Not Detect); Influenza B Not Detected (Not Detect); Mycoplasma pneumoniae Not Detected (Not Detect); Parainfluenza Virus 1 Not Detected (Not Detect); Parainfluenza Virus 2 Not Detected (Not Detect); Parainfluenza Virus 3 Not Detected (Not Detect); Parainfluenza Virus 4 Not Detected (Not Detect); Respiratory Syncytial Virus Not Detected (Not Detect); SARS-CoV-2 Not Detected (Not Detect)
[2020-02-19] MEDS: Acetaminophen 325 MG TABLET PO PRN (20:21)
[2020-02-20] MEDS: Ipratropium/Albuterol Neb 3 ML IH SCH ×6 (03:26→23:37)
[2020-02-20] MEDS: *HR* Heparin 5,000 UNIT/ML VIAL SQ SCH ×3 (05:27→21:14)
[2020-02-20] MEDS: MethylPREDNISolone 40 MG/ML VIAL IVP SCH ×2 (05:27→17:30)
[2020-02-20] MEDS: Budesonide/Formoterol 160/4.5 1 PUFF INH IH SCH ×2 (07:28→19:42)
[2020-02-20] MEDS: Azithromycin 500 MG in 0.9 % Sodium Chloride 250 ML IVPB SCH (08:43)
[2020-02-20] MEDS: DALIRESP 500 MCG PO SCH (08:43)
[2020-02-20] MEDS: *HR* Acetylcysteine 20% 600 MG/3 ML ORAL SYRINGE PO SCH (08:44)
[2020-02-20] MEDS: Tiotropium 18 MCG inhalation IH SCH (08:44)
[2020-02-20] MEDS: Valsartan 160 MG TABLET PO SCH (08:44)
[2020-02-20] MEDS: Acetaminophen 325 MG TABLET PO PRN (08:44)
[2020-02-20] MEDS: hydroCHLOROthiazide 25 MG TABLET PO SCH (08:44)
[2020-02-20] MEDS: Furosemide 40 MG TABLET PO SCH (08:45)
[2020-02-20] MEDS: Aspirin Enteric Coated 81 MG Tablet PO SCH (08:45)
[2020-02-20] MEDS: DilTIAZem CD (24hr) 120 MG CAP.ER.24H PO SCH (08:45)
[2020-02-20] MEDS ORDERED: Ketorolac 15 MG/ML VIAL IVP ONE (12:03)
[2020-02-21] MEDS: Ipratropium/Albuterol Neb 3 ML IH SCH ×2 (03:44→07:36)
[2020-02-21] MEDS: MethylPREDNISolone 40 MG/ML VIAL IVP SCH (05:34)
[2020-02-21] MEDS: *HR* Heparin 5,000 UNIT/ML VIAL SQ SCH (05:35)
[2020-02-21 07:29] VITALS: BP 138/86
[2020-02-21] MEDS: Budesonide/Formoterol 160/4.5 1 PUFF INH IH SCH (07:36)
[2020-02-21] MEDS: *HR* Acetylcysteine 20% 600 MG/3 ML ORAL SYRINGE PO SCH (08:39)
[2020-02-21] MEDS: Azithromycin 500 MG in 0.9 % Sodium Chloride 250 ML IVPB SCH (08:40)
[2020-02-21] MEDS: hydroCHLOROthiazide 25 MG TABLET PO SCH (08:40)
[2020-02-21] MEDS: Aspirin Enteric Coated 81 MG Tablet PO SCH (08:40)
[2020-02-21] MEDS: DALIRESP 500 MCG PO SCH (08:40)
[2020-02-21] MEDS: DilTIAZem CD (24hr) 120 MG CAP.ER.24H PO SCH (08:40)
[2020-02-21] MEDS: Furosemide 40 MG TABLET PO SCH (08:40)
[2020-02-21] MEDS: Valsartan 160 MG TABLET PO SCH (08:40)
[2020-02-21] MEDS: Tiotropium 18 MCG inhalation IH SCH (08:41)
== END 2020-02-21 10:44 | disposition home or self-care (01) | DRG 190 ==
LOC: EMEROOARM 18:56 → 3BNU 18:56 → SUATTDRO 20:49 → 3BNU 21:11
PROVIDERS: ADMIT Internal Medicine; ATTEND Internal Medicine

== ENCOUNTER 2020-03-21 15:40 | Inpatient (IN) ==
[2020-03-21] MEDS ORDERED: Isovue-370 500 ML BOTTLE IVP ONE ×2 (15:58→23:50)
[2020-03-21] MEDS ORDERED: Ipratropium/Albuterol Neb 3 ML IH ONE (16:09)
[2020-03-21] MEDS ORDERED: Aspirin 81 MG TAB.CHEW PO ONE (16:09)
[2020-03-21 16:42] LABS: Basophils % 0.2 %; Eosinophils % 0.1 %; Hematocrit 38.6 % (37.5-50.1); Hemoglobin 12.1 g/dL (12.9-16.9); Lymphocytes # 0.4 K/mcL (0.6-4.6); Mean Corpuscular HGB Conc 31.3 g/dL (31.6-35.5); Mean Corpuscular Hemoglobin 27.7 pg (28.0-33.3); Mean Corpuscular Volume 88.3 fL (83.0-100.0); Mean Platelet Volume 9.3 fL (9.4-12.4); Monocytes # 0.6 K/mcL (0.0-1.3); Monocytes % 7.6 %; Neutrophils # 7.1 K/mcL (1.6-8.9); Platelet Count 233 K/mcL (140-400); Red Blood Count 4.37 M/mcL (4.19-5.50); Red Cell Distribution Width 13.4 % (11.5-14.5); Segmented Neutrophils % 85.1 %; White Blood Count 8.4 K/mcL (4.3-11.1)
[2020-03-21 16:58] LABS: BUN/Creatinine Ratio 27 (6-26); Blood Urea Nitrogen 27 mg/dL (6-20); Carbon Dioxide 29 mEq/L (23-29); Chloride 98 mEq/L (98-107); Glucose 147 mg/dL (70-105); Osmolality,Calculated 292 (280-300); Potassium 3.8 mEq/L (3.5-5.1); Sodium 137 mEq/L (136-145); eGFR For African Americans > 60 (> 60); eGFR For Non-African Americans > 60 (> 60)
[2020-03-21 16:59] LABS: Troponin I < 0.03 ng/mL (< 0.04)
[2020-03-21] MEDS ORDERED: Naloxone 0.4 MG/ML INJ IVP PRN (20:56)
[2020-03-21 22:14] LABS: Adenovirus Not Detected (Not Detect); Bordetella Pertussis Not Detected (Not Detect); Chlamydophila pneumoniae Not Detected (Not Detect); Coronavirus 229E Not Detected (Not Detect); Coronavirus HKU1 Not Detected (Not Detect); Coronavirus NL63 Not Detected (Not Detect); Coronavirus OC43 Not Detected (Not Detect); Human Metapneumovirus Not Detected (Not Detect); Human Rhinovirus/Enterovirus Not Detected (Not Detect); Influenza A Subtype 2009 H1 Not Detected (Not Detect); Influenza B Not Detected (Not Detect); Mycoplasma pneumoniae Not Detected (Not Detect); Parainfluenza Virus 1 Not Detected (Not Detect); Parainfluenza Virus 2 Not Detected (Not Detect); Parainfluenza Virus 3 Not Detected (Not Detect); Parainfluenza Virus 4 Not Detected (Not Detect); Respiratory Syncytial Virus Not Detected (Not Detect); SARS-CoV-2 Not Detected (Not Detect)
[2020-03-21] MEDS: *HR* Heparin 5,000 UNIT/ML VIAL SQ SCH (22:15)
[2020-03-21] MEDS ORDERED: *HR* Dextrose 50 % in Water (Vial) 50 ML VIAL IVP PRN (23:50)
[2020-03-21] MEDS ORDERED: Dextrose Gel 15 GM/37.5 ML TUBE PO PRN ×2 (23:50)
[2020-03-21] MEDS ORDERED: D5% in Water 1,000 ML IVC PRN (23:50)
[2020-03-22] MEDS: Insulin LISPRO 300 UNITS/3 ML VIAL SQ SCH ×4 (00:13→16:20)
[2020-03-22] MEDS: Ipratropium/Albuterol Neb 3 ML IH SCH ×7 (00:14→23:33)
[2020-03-22] MEDS: MethylPREDNISolone 40 MG/ML VIAL IVP SCH ×5 (00:21→23:50)
[2020-03-22] MEDS ORDERED: Acetaminophen 325 MG TABLET PO PRN (04:15)
[2020-03-22] MEDS ORDERED: Furosemide 40 MG TABLET PO PRN (04:21)
[2020-03-22] MEDS: *HR* Heparin 5,000 UNIT/ML VIAL SQ SCH ×3 (05:26→21:10)
[2020-03-22] MEDS ORDERED: Regadenoson 0.4 MG/5 ML SYRINGE IVP ONE (06:11)
[2020-03-22 07:13] LABS: Basophils % 0.3 %; Hematocrit 39.9 % (37.5-50.1); Hemoglobin 12.6 g/dL (12.9-16.9); Immature Granulocytes % 2.2 % (0-4); Lymphocytes # 0.4 K/mcL (0.6-4.6); Lymphocytes % 4.9 %; Mean Corpuscular HGB Conc 31.6 g/dL (31.6-35.5); Mean Corpuscular Hemoglobin 28.3 pg (28.0-33.3); Mean Corpuscular Volume 89.5 fL (83.0-100.0); Monocytes # 0.3 K/mcL (0.0-1.3); Monocytes % 3.2 %; Neutrophils # 7.8 K/mcL (1.6-8.9); Platelet Count 218 K/mcL (140-400); Red Blood Count 4.46 M/mcL (4.19-5.50); Red Cell Distribution Width 13.6 % (11.5-14.5); Segmented Neutrophils % 89.4 %; White Blood Count 8.7 K/mcL (4.3-11.1)
[2020-03-22 07:38] LABS: Alanine Aminotransferase 45 Units/L (7-52); Albumin 4.3 g/dL (3.5-5.7); Alkaline Phosphatase 81 Units/L (34-104); Aspartate Amino Transferase 30 Units/L (13-39); BUN/Creatinine Ratio 25 (6-26); Bilirubin,Total 0.4 mg/dL (0.3-1.0); Blood Urea Nitrogen 23 mg/dL (6-20); Calcium 9.3 mg/dL (8.6-10.3); Carbon Dioxide 30 mEq/L (23-29); Chloride 97 mEq/L (98-107); Globulin 2.2 g/dL (2.4-3.5); Glucose 163 mg/dL (70-105); Osmolality,Calculated 291 (280-300); Sodium 137 mEq/L (136-145); Total Protein 6.5 g/dL (6.4-8.9); Troponin I < 0.03 ng/mL (< 0.04); eGFR For African Americans > 60 (> 60); eGFR For Non-African Americans > 60 (> 60)
[2020-03-22] MEDS: Aspirin Enteric Coated 81 MG Tablet PO SCH (10:12)
[2020-03-22] MEDS: hydroCHLOROthiazide 25 MG TABLET PO SCH (10:12)
[2020-03-22] MEDS: DilTIAZem CD (24hr) 120 MG CAP.ER.24H PO SCH (10:12)
[2020-03-22] MEDS: Azithromycin 500 MG in 0.9 % Sodium Chloride 250 ML IVPB SCH (10:13)
[2020-03-22] MEDS: Valsartan 160 MG TABLET PO SCH (10:14)
[2020-03-22] MEDS: Budesonide/Formoterol 160/4.5 1 PUFF INH IH SCH ×2 (11:13→20:20)
[2020-03-22] MEDS ORDERED: Loratadine 10 MG TABLET PO PRN (18:22)
[2020-03-22] MEDS: (Roflumilast [Daliresp] 500 MCG) PO SCH (21:10)
[2020-03-23] MEDS: Ipratropium/Albuterol Neb 3 ML IH SCH ×6 (03:38→23:19)
[2020-03-23 04:10] LABS: Basophils % 0.2 %; Hematocrit 37.4 % (37.5-50.1); Hemoglobin 11.6 g/dL (12.9-16.9); Immature Granulocytes % 1.6 % (0-4); Lymphocytes # 0.3 K/mcL (0.6-4.6); Lymphocytes % 2.7 %; Mean Corpuscular Hemoglobin 27.6 pg (28.0-33.3); Mean Platelet Volume 9.4 fL (9.4-12.4); Monocytes # 0.4 K/mcL (0.0-1.3); Platelet Count 187 K/mcL (140-400); Red Cell Distribution Width 13.6 % (11.5-14.5); Segmented Neutrophils % 91.5 %
[2020-03-23 04:26] LABS: BUN/Creatinine Ratio 31 (6-26); Blood Urea Nitrogen 22 mg/dL (6-20); Carbon Dioxide 32 mEq/L (23-29); Chloride 98 mEq/L (98-107); Sodium 136 mEq/L (136-145); eGFR For African Americans > 60 (> 60)
[2020-03-23 04:27] LABS: Alanine Aminotransferase 38 Units/L (7-52); Albumin 3.9 g/dL (3.5-5.7); Albumin/Globulin Ratio 1.8 (1.1-2.2); Alkaline Phosphatase 66 Units/L (34-104); Aspartate Amino Transferase 22 Units/L (13-39); Bilirubin,Total 0.3 mg/dL (0.3-1.0); Calcium 9.2 mg/dL (8.6-10.3); Globulin 2.2 g/dL (2.4-3.5); Glucose 169 mg/dL (70-105); Osmolality,Calculated 289 (280-300); Total Protein 6.1 g/dL (6.4-8.9); eGFR For Non-African Americans > 60 (> 60)
[2020-03-23] MEDS: MethylPREDNISolone 40 MG/ML VIAL IVP SCH ×4 (05:58→23:42)
[2020-03-23] MEDS: *HR* Heparin 5,000 UNIT/ML VIAL SQ SCH ×3 (05:59→21:10)
[2020-03-23] MEDS: Budesonide/Formoterol 160/4.5 1 PUFF INH IH SCH ×2 (07:31→19:35)
[2020-03-23] MEDS: Valsartan 160 MG TABLET PO SCH (08:57)
[2020-03-23] MEDS: hydroCHLOROthiazide 25 MG TABLET PO SCH (08:57)
[2020-03-23] MEDS: DilTIAZem CD (24hr) 120 MG CAP.ER.24H PO SCH (08:57)
[2020-03-23] MEDS: Aspirin Enteric Coated 81 MG Tablet PO SCH (08:57)
[2020-03-23] MEDS: Insulin LISPRO 300 UNITS/3 ML VIAL SQ SCH ×3 (08:58→16:47)
[2020-03-23] MEDS: Azithromycin 500 MG in 0.9 % Sodium Chloride 250 ML IVPB SCH (08:58)
[2020-03-23] MEDS: (Roflumilast [Daliresp] 500 MCG) PO SCH (08:59)
[2020-03-23] MEDS: hydrOXYzine pamoate 25 MG CAPSULE PO PRN (21:10)
[2020-03-24] MEDS: Ipratropium/Albuterol Neb 3 ML IH SCH ×6 (03:32→23:42)
[2020-03-24] MEDS: MethylPREDNISolone 40 MG/ML VIAL IVP SCH ×3 (05:42→17:59)
[2020-03-24] MEDS: *HR* Heparin 5,000 UNIT/ML VIAL SQ SCH ×3 (05:42→21:15)
[2020-03-24 06:32] LABS: Basophils % 0.1 %; Hemoglobin 12.2 g/dL (12.9-16.9); Immature Granulocytes % 1.6 % (0-4); Lymphocytes # 0.3 K/mcL (0.6-4.6); Mean Corpuscular HGB Conc 31.3 g/dL (31.6-35.5); Mean Corpuscular Hemoglobin 28.7 pg (28.0-33.3); Mean Corpuscular Volume 91.8 fL (83.0-100.0); Mean Platelet Volume 9.5 fL (9.4-12.4); Monocytes # 0.7 K/mcL (0.0-1.3); Neutrophils # 12.3 K/mcL (1.6-8.9); Platelet Count 194 K/mcL (140-400); Red Blood Count 4.25 M/mcL (4.19-5.50); Red Cell Distribution Width 13.8 % (11.5-14.5); Segmented Neutrophils % 91.3 %; White Blood Count 13.5 K/mcL (4.3-11.1)
[2020-03-24 06:47] LABS: Estimated Average Glucose 146 mg/dl
[2020-03-24 06:52] LABS: Alanine Aminotransferase 48 Units/L (7-52); Albumin 3.9 g/dL (3.5-5.7); Albumin/Globulin Ratio 1.7 (1.1-2.2); Alkaline Phosphatase 74 Units/L (34-104); Aspartate Amino Transferase 28 Units/L (13-39); BUN/Creatinine Ratio 36 (6-26); Bilirubin,Total 0.3 mg/dL (0.3-1.0); Blood Urea Nitrogen 33 mg/dL (6-20); Calcium 9.4 mg/dL (8.6-10.3); Carbon Dioxide 32 mEq/L (23-29); Chloride 98 mEq/L (98-107); Globulin 2.3 g/dL (2.4-3.5); Glucose 155 mg/dL (70-105); Osmolality,Calculated 294 (280-300); Potassium 4.2 mEq/L (3.5-5.1); Sodium 137 mEq/L (136-145); Total Protein 6.2 g/dL (6.4-8.9); eGFR For African Americans > 60 (> 60); eGFR For Non-African Americans > 60 (> 60)
[2020-03-24] MEDS: DilTIAZem CD (24hr) 120 MG CAP.ER.24H PO SCH (08:05)
[2020-03-24] MEDS: Valsartan 160 MG TABLET PO SCH (08:05)
[2020-03-24] MEDS: hydroCHLOROthiazide 25 MG TABLET PO SCH (08:06)
[2020-03-24] MEDS: Aspirin Enteric Coated 81 MG Tablet PO SCH (08:06)
[2020-03-24] MEDS: Budesonide/Formoterol 160/4.5 1 PUFF INH IH SCH ×2 (08:07→19:48)
[2020-03-24] MEDS: Azithromycin 500 MG in 0.9 % Sodium Chloride 250 ML IVPB SCH (08:08)
[2020-03-24] MEDS: Insulin LISPRO 300 UNITS/3 ML VIAL SQ SCH ×3 (08:08→17:59)
[2020-03-24] MEDS: (Roflumilast [Daliresp] 500 MCG) PO SCH (08:09)
[2020-03-24] MEDS: ALPRAZolam 0.25 MG TABLET PO PRN ×2 (11:12→23:39)
[2020-03-24] MEDS: hydrOXYzine pamoate 25 MG CAPSULE PO PRN (21:17)
[2020-03-25] MEDS: Ipratropium/Albuterol Neb 3 ML IH SCH ×6 (03:49→23:26)
[2020-03-25] MEDS: *HR* Heparin 5,000 UNIT/ML VIAL SQ SCH (05:47)
[2020-03-25] MEDS: MethylPREDNISolone 40 MG/ML VIAL IVP SCH ×2 (05:47→17:20)
[2020-03-25 06:15] LABS: Basophils % 0.2 %; Hemoglobin 11.9 g/dL (12.9-16.9); Immature Granulocytes % 2.3 % (0-4); Lymphocytes # 0.3 K/mcL (0.6-4.6); Lymphocytes % 2.6 %; Mean Corpuscular HGB Conc 31.3 g/dL (31.6-35.5); Mean Corpuscular Hemoglobin 28.5 pg (28.0-33.3); Mean Corpuscular Volume 90.9 fL (83.0-100.0); Mean Platelet Volume 9.6 fL (9.4-12.4); Monocytes # 0.8 K/mcL (0.0-1.3); Monocytes % 6.5 %; Neutrophils # 10.7 K/mcL (1.6-8.9); Platelet Count 185 K/mcL (140-400); Red Blood Count 4.18 M/mcL (4.19-5.50); Red Cell Distribution Width 13.6 % (11.5-14.5); Segmented Neutrophils % 88.4 %; White Blood Count 12.1 K/mcL (4.3-11.1)
[2020-03-25] MEDS: Budesonide/Formoterol 160/4.5 1 PUFF INH IH SCH ×2 (07:55→20:34)
[2020-03-25 08:27] LABS: Prothrombin Time 11.8 Seconds (9.4-12.1)
[2020-03-25] MEDS: Insulin LISPRO 300 UNITS/3 ML VIAL SQ SCH ×3 (09:31→17:19)
[2020-03-25] MEDS: DilTIAZem CD (24hr) 120 MG CAP.ER.24H PO SCH (09:31)
[2020-03-25] MEDS: Valsartan 160 MG TABLET PO SCH (09:31)
[2020-03-25] MEDS: Aspirin Enteric Coated 81 MG Tablet PO SCH (09:31)
[2020-03-25] MEDS: hydroCHLOROthiazide 25 MG TABLET PO SCH (09:31)
[2020-03-25] MEDS: (Roflumilast [Daliresp] 500 MCG) PO SCH (09:32)
[2020-03-25] MEDS: Azithromycin 500 MG in 0.9 % Sodium Chloride 250 ML IVPB SCH (09:32)
[2020-03-25] MEDS: ALPRAZolam 0.25 MG TABLET PO PRN (15:38)
[2020-03-25] MEDS ORDERED: SODIUM CHLORIDE/NAHCO3/KCL/PEG 4,000 ML SOLN.RECON PO ONE (17:00)
[2020-03-26] MEDS: Ipratropium/Albuterol Neb 3 ML IH SCH ×5 (04:08→20:06)
[2020-03-26 05:18] LABS: Basophils % 0.4 %; Hematocrit 39.7 % (37.5-50.1); Hemoglobin 12.6 g/dL (12.9-16.9); Immature Granulocytes % 1.9 % (0-4); Lymphocytes # 0.3 K/mcL (0.6-4.6); Mean Corpuscular HGB Conc 31.7 g/dL (31.6-35.5); Mean Corpuscular Hemoglobin 28.5 pg (28.0-33.3); Mean Corpuscular Volume 89.8 fL (83.0-100.0); Mean Platelet Volume 9.2 fL (9.4-12.4); Monocytes # 0.9 K/mcL (0.0-1.3); Monocytes % 7.8 %; Neutrophils # 9.7 K/mcL (1.6-8.9); Platelet Count 166 K/mcL (140-400); Red Blood Count 4.42 M/mcL (4.19-5.50); Red Cell Distribution Width 13.7 % (11.5-14.5); Segmented Neutrophils % 86.9 %; White Blood Count 11.2 K/mcL (4.3-11.1)
[2020-03-26 05:40] LABS: Alanine Aminotransferase 47 Units/L (7-52); Albumin 3.7 g/dL (3.5-5.7); Alkaline Phosphatase 72 Units/L (34-104); Aspartate Amino Transferase 26 Units/L (13-39); BUN/Creatinine Ratio 38 (6-26); Blood Urea Nitrogen 30 mg/dL (6-20); Carbon Dioxide 27 mEq/L (23-29); Chloride 100 mEq/L (98-107); Glucose 130 mg/dL (70-105); Osmolality,Calculated 286 (280-300); Potassium 4.5 mEq/L (3.5-5.1); Sodium 134 mEq/L (136-145); eGFR For African Americans > 60 (> 60); eGFR For Non-African Americans > 60 (> 60)
[2020-03-26] MEDS: MethylPREDNISolone 40 MG/ML VIAL IVP SCH ×2 (05:47→17:25)
[2020-03-26 05:49] LABS: Albumin/Globulin Ratio 1.7 (1.1-2.2); Bilirubin,Total 0.4 mg/dL (0.3-1.0); Globulin 2.2 g/dL (2.4-3.5); Total Protein 5.9 g/dL (6.4-8.9)
[2020-03-26] MEDS ORDERED: ALPRAZolam 0.25 MG TABLET PO PRN ×3 (05:53→22:36)
[2020-03-26] MEDS: Budesonide/Formoterol 160/4.5 1 PUFF INH IH SCH ×2 (07:45→20:06)
[2020-03-26] MEDS ORDERED: 0.9 % Sodium Chloride 500 ML ONE (08:17)
[2020-03-26] MEDS: Insulin LISPRO 300 UNITS/3 ML VIAL SQ SCH ×4 (08:20→18:26)
[2020-03-26] MEDS ORDERED: *HR* FentaNYL (PF) 100 MCG/2 ML VIAL IVP ONE (08:34)
[2020-03-26] MEDS ORDERED: *HR* Midazolam HCl 2 MG/2 ML VIAL IVP ONE (08:34)
[2020-03-26] MEDS: hydroCHLOROthiazide 25 MG TABLET PO SCH (09:47)
[2020-03-26] MEDS: Valsartan 160 MG TABLET PO SCH (09:47)
[2020-03-26] MEDS: DilTIAZem CD (24hr) 120 MG CAP.ER.24H PO SCH (09:48)
[2020-03-26] MEDS: Azithromycin 500 MG in 0.9 % Sodium Chloride 250 ML IVPB SCH (09:48)
[2020-03-26] MEDS: (Roflumilast [Daliresp] 500 MCG) PO SCH (09:50)
[2020-03-26] MEDS ORDERED: *HR* Propofol 200 MG/20 ML VIAL IVP ONE (13:15)
[2020-03-26] MEDS ORDERED: *HR* Succinylcholine 200 MG/10 ML VIAL IVP ONE (13:15)
[2020-03-26] MEDS ORDERED: Lidocaine -MPF 2% 5 ML VIAL SQ ONE (13:15)
[2020-03-26] MEDS ORDERED: *HR* Propofol 500 MG/50 ML BOTTLE IVP ONE (13:15)
[2020-03-27] MEDS: Ipratropium/Albuterol Neb 3 ML IH SCH ×4 (00:12→11:22)
[2020-03-27] MEDS: MethylPREDNISolone 40 MG/ML VIAL IVP SCH (05:11)
[2020-03-27 05:21] LABS: Basophils % 0.2 %; Hematocrit 40.6 % (37.5-50.1); Hemoglobin 12.8 g/dL (12.9-16.9); Immature Granulocytes % 1.5 % (0-4); Lymphocytes # 0.2 K/mcL (0.6-4.6); Lymphocytes % 1.4 %; Mean Corpuscular HGB Conc 31.5 g/dL (31.6-35.5); Mean Corpuscular Hemoglobin 28.6 pg (28.0-33.3); Mean Corpuscular Volume 90.8 fL (83.0-100.0); Mean Platelet Volume 9.5 fL (9.4-12.4); Monocytes # 0.8 K/mcL (0.0-1.3); Monocytes % 5.9 %; Neutrophils # 11.7 K/mcL (1.6-8.9); Platelet Count 185 K/mcL (140-400); Red Blood Count 4.47 M/mcL (4.19-5.50); Red Cell Distribution Width 13.8 % (11.5-14.5); White Blood Count 12.8 K/mcL (4.3-11.1)
[2020-03-27] MEDS: Budesonide/Formoterol 160/4.5 1 PUFF INH IH SCH (07:45)
[2020-03-27] MEDS: Insulin LISPRO 300 UNITS/3 ML VIAL SQ SCH ×2 (07:55→11:34)
[2020-03-27] MEDS: DilTIAZem CD (24hr) 120 MG CAP.ER.24H PO SCH (08:01)
[2020-03-27] MEDS: Valsartan 160 MG TABLET PO SCH (08:01)
[2020-03-27] MEDS: hydroCHLOROthiazide 25 MG TABLET PO SCH (08:02)
[2020-03-27] MEDS: (Roflumilast [Daliresp] 500 MCG) PO SCH (08:02)
[2020-03-27] MEDS ORDERED: Fluconazole 40 MG/ML UDC PO SCH (09:00)
[2020-03-27 10:14] VITALS: BP 112/70
[2020-03-27] MEDS ORDERED: FLU Vac QV 20-21 (6Month+)/PF 0.5 ML SYRINGE IM ONE (12:48)
== END 2020-03-27 13:16 | disposition home or self-care (01) | DRG 190 ==
LOC: EMEROOARM 15:40 → 3BNU 15:40 → SUATTDRO 03-23 13:42 → 3ANU 03-23 20:51
PROVIDERS: ADMIT Internal Medicine; ATTEND Internal Medicine

== ENCOUNTER 2020-04-24 19:23 | Inpatient (IN) ==
[2020-04-24 20:12] LABS: Hematocrit 30.4 % (37.5-50.1); Mean Corpuscular HGB Conc 32.9 g/dL (31.6-35.5); Mean Corpuscular Volume 85.2 fL (83.0-100.0); Nucleated Red Blood Cells 0.2 /100 WBC (0); Platelet Count 151 K/mcL (140-400); Red Blood Count 3.57 M/mcL (4.19-5.50); Red Cell Distribution Width 14.9 % (11.5-14.5); White Blood Count 19.6 K/mcL (4.3-11.1)
[2020-04-24] MEDS ORDERED: *HR* FentaNYL (PF) 100 MCG/2 ML VIAL IVP ONE (20:24)
[2020-04-24 20:31] LABS: Lymphocytes # 3.9 K/mcL (0.6-4.6); Monocytes # 0.8 K/mcL (0.0-1.3); Neutrophils # 14.9 K/mcL (1.6-8.9)
[2020-04-24 20:32] LABS: Reactive Lymphocytes Present (Not Present); Toxic Granulation Present (Not Present)
[2020-04-24 20:33] LABS: BUN/Creatinine Ratio 28 (6-26); Blood Urea Nitrogen 24 mg/dL (6-20); Calcium 8.9 mg/dL (8.6-10.3); Carbon Dioxide 25 mEq/L (23-29); Chloride 100 mEq/L (98-107); Glucose 100 mg/dL (70-105); Osmolality,Calculated 290 (280-300); Potassium 3.8 mEq/L (3.5-5.1); Sodium 138 mEq/L (136-145); eGFR For African Americans > 60 (> 60); eGFR For Non-African Americans > 60 (> 60)
[2020-04-24 20:35] LABS: Troponin I < 0.03 ng/mL (< 0.04)
[2020-04-24] MEDS ORDERED: Isovue-370 500 ML BOTTLE IVP ONE (20:56)
[2020-04-24] MEDS ORDERED: Vancomycin 1,750 MG/517.5 ML IV.SOLN IVPB ONE (22:24)
[2020-04-24] MEDS ORDERED: Piperacillin/Tazobactam 3.375 GM in 0.9 % Sodium Chloride Mini Bag 100 ML IVPB ONE (22:24)
[2020-04-24 22:41] LABS: Bilirubin,Urine Negative (Negative); Blood,Urine Negative (Negative); Clarity,Urine Clear (Clear); Color,Urine Colorless (Yellow); Glucose,Urine (UA) Normal (Normal); Ketones,Urine Negative (Negative); Leukocyte Esterase,Urine Negative (Negative); Nitrite,Urine Negative (Negative); PH,Urine 6.5 pH Units (5.0-8.0); Protein,Urine Negative (Neg-Trace); Specific Gravity,Urine 1.015 (1.010-1.025); Urobilinogen,Urine Normal (Normal)
[2020-04-24] MEDS: DilTIAZem 50 MG/50 ML IV.SOLN IVC SCH (22:44)
[2020-04-25] MEDS ORDERED: Acetaminophen 325 MG TABLET PO PRN (00:37)
[2020-04-25] MEDS ORDERED: *HR* FentaNYL (PF) 100 MCG/2 ML VIAL IVP ONE (00:37)
[2020-04-25] MEDS ORDERED: Ondansetron ODT 4 MG TAB.RAPDIS SL PRN (00:37)
[2020-04-25] MEDS ORDERED: Naloxone 0.4 MG/ML INJ IVP PRN (00:37)
[2020-04-25] MEDS ORDERED: Perflutren Lipid Microsphere 1.3 ML in 0.9 % Sodium Chloride 8.7 ML IVP PRN (00:42)
[2020-04-25] MEDS ORDERED: Ipratropium/Albuterol Neb 3 ML IH PRN (01:12)
[2020-04-25] MEDS: DilTIAZem 50 MG/50 ML IV.SOLN IVC SCH (01:27)
[2020-04-25] MEDS: *HR* HYDROmorphone (PF) 1 MG/ML SYRINGE IVP PRN ×4 (01:35→20:37)
[2020-04-25] MEDS ORDERED: Amiodarone Premix 150 MG/100 ML BAG IVPB ONE (01:39)
[2020-04-25] MEDS ORDERED: *HR* Heparin 5,000 UNIT/ML VIAL IVP PRN ×2 (01:40)
[2020-04-25] MEDS ORDERED: *HR* Heparin 5,000 UNIT/ML VIAL IVP ONE (01:40)
[2020-04-25] MEDS ORDERED: Furosemide 20 MG/2 ML VIAL IVP ONE (01:49)
[2020-04-25] MEDS ORDERED: Amiodarone Premix 360 MG/200 ML BAG IVC ONE (02:00)
[2020-04-25 02:28] LABS: INR 1.1; Prothrombin Time 12.7 Seconds (9.4-12.1)
[2020-04-25 02:30] LABS: Hematocrit 31.9 % (37.5-50.1); Hemoglobin 10.3 g/dL (12.9-16.9); Mean Corpuscular HGB Conc 32.3 g/dL (31.6-35.5); Mean Corpuscular Hemoglobin 28.1 pg (28.0-33.3); Mean Corpuscular Volume 86.9 fL (83.0-100.0); Mean Platelet Volume 9.5 fL (9.4-12.4); Nucleated Red Blood Cells 0.2 /100 WBC (0); Platelet Count 157 K/mcL (140-400); Red Blood Count 3.67 M/mcL (4.19-5.50); Red Cell Distribution Width 14.8 % (11.5-14.5); White Blood Count 16.6 K/mcL (4.3-11.1)
[2020-04-25 02:43] LABS: Albumin 3.9 g/dL (3.5-5.7); Albumin/Globulin Ratio 1.6 (1.1-2.2); Bilirubin,Direct 0.1 mg/dL (0.0-0.2); Bilirubin,Indirect 0.3 mg/dL (0.0-1.0); Bilirubin,Total 0.4 mg/dL (0.3-1.0); Globulin 2.4 g/dL (2.4-3.5); Total Protein 6.3 g/dL (6.4-8.9)
[2020-04-25 02:55] LABS: Alanine Aminotransferase 34 Units/L (7-52); Albumin/Globulin Ratio 1.7 (1.1-2.2); Alkaline Phosphatase 148 Units/L (34-104); Aspartate Amino Transferase 22 Units/L (13-39); BUN/Creatinine Ratio 26 (6-26); Bilirubin,Total 0.3 mg/dL (0.3-1.0); Blood Urea Nitrogen 21 mg/dL (6-20); Calcium 8.9 mg/dL (8.6-10.3); Carbon Dioxide 28 mEq/L (23-29); Chloride 102 mEq/L (98-107); Chol/HDL Ratio 5.3 (0-4.9); Cholesterol 208 mg/dL (< 200); Globulin 2.4 g/dL (2.4-3.5); Glucose 95 mg/dL (70-105); HDL Cholesterol 39 mg/dL (40-59); LDL Cholesterol,Calculated 140 mg/dL (< 100); Magnesium 1.3 mg/dL (1.6-2.6); Osmolality,Calculated 293 (280-300); Phosphorous 3.3 mg/dL (2.7-4.5); Potassium 3.6 mEq/L (3.5-5.1); Sodium 140 mEq/L (136-145); Total Protein 6.4 g/dL (6.4-8.9); Triglycerides 146 mg/dL (< 150); Troponin I 0.06 ng/mL (< 0.04); eGFR For African Americans > 60 (> 60); eGFR For Non-African Americans > 60 (> 60)
[2020-04-25 02:57] LABS: Lymphocytes # 1.7 K/mcL (0.6-4.6); Monocytes # 0.3 K/mcL (0.0-1.3); Neutrophils # 14.3 K/mcL (1.6-8.9); Platelet Estimate Normal (Normal); Reactive Lymphocytes Present (Not Present); Toxic Granulation Present (Not Present)
[2020-04-25] MEDS: *HR* OxyCODONE/APAP 5/325 TABLET PO PRN ×4 (03:02→23:37)
[2020-04-25] MEDS: Heparin 25,000UNIT/250ML 1/2NS 25,000 UNIT/250 ML IV.SOLN IVC SCH ×2 (03:04→20:35)
[2020-04-25] MEDS ORDERED: *HR* Metoprolol 5 MG/5 ML VIAL IVP PRN ×2 (04:36→11:53)
[2020-04-25] MEDS: Piperacillin/Tazobactam 3.375 GM in 0.9 % Sodium Chloride Mini Bag 100 ML IVPB SCH ×3 (07:39→23:38)
[2020-04-25] MEDS: Amiodarone Premix 360 MG/200 ML BAG IVC SCH (08:52)
[2020-04-25] MEDS: Budesonide/Formoterol 160/4.5 1 PUFF INH IH SCH ×2 (11:06→21:58)
[2020-04-25] MEDS: *HR* LORazepam 0.5 MG TABLET PO PRN (20:37)
[2020-04-26] MEDS: *HR* HYDROmorphone (PF) 1 MG/ML SYRINGE IVP PRN ×4 (01:17→21:40)
[2020-04-26 04:29] LABS: Hematocrit 35.5 % (37.5-50.1); Mean Corpuscular Hemoglobin 27.6 pg (28.0-33.3); Nucleated Red Blood Cells 0.4 /100 WBC (0); Platelet Count 131 K/mcL (140-400); Red Blood Count 3.99 M/mcL (4.19-5.50); Red Cell Distribution Width 15.2 % (11.5-14.5); White Blood Count 14.7 K/mcL (4.3-11.1)
[2020-04-26] MEDS: *HR* OxyCODONE/APAP 5/325 TABLET PO PRN ×5 (04:29→23:15)
[2020-04-26 04:49] LABS: BUN/Creatinine Ratio 21 (6-26); Blood Urea Nitrogen 21 mg/dL (6-20); Calcium 8.9 mg/dL (8.6-10.3); Carbon Dioxide 31 mEq/L (23-29); Chloride 100 mEq/L (98-107); Glucose 97 mg/dL (70-105); Osmolality,Calculated 291 (280-300); Potassium 3.8 mEq/L (3.5-5.1); Sodium 139 mEq/L (136-145); eGFR For African Americans > 60 (> 60); eGFR For Non-African Americans > 60 (> 60)
[2020-04-26 05:28] LABS: Lymphocytes # 1.8 K/mcL (0.6-4.6); Monocytes # 0.6 K/mcL (0.0-1.3); Neutrophils # 11.8 K/mcL (1.6-8.9); Platelet Estimate Slight Decrease (Normal); Reactive Lymphocytes Present (Not Present); Toxic Granulation Present (Not Present)
[2020-04-26] MEDS: Piperacillin/Tazobactam 3.375 GM in 0.9 % Sodium Chloride Mini Bag 100 ML IVPB SCH ×3 (08:16→23:30)
[2020-04-26] MEDS: Amiodarone Premix 360 MG/200 ML BAG IVC SCH (09:28)
[2020-04-26] MEDS: Budesonide/Formoterol 160/4.5 1 PUFF INH IH SCH ×2 (10:42→21:08)
[2020-04-26] MEDS: Heparin 25,000UNIT/250ML 1/2NS 25,000 UNIT/250 ML IV.SOLN IVC SCH (21:49)
[2020-04-27] MEDS: *HR* HYDROmorphone (PF) 1 MG/ML SYRINGE IVP PRN ×2 (02:01→06:09)
[2020-04-27 02:07] LABS: Hematocrit 31.2 % (37.5-50.1); Hemoglobin 9.9 g/dL (12.9-16.9); Mean Corpuscular HGB Conc 31.7 g/dL (31.6-35.5); Mean Corpuscular Hemoglobin 28.2 pg (28.0-33.3); Mean Corpuscular Volume 88.9 fL (83.0-100.0); Mean Platelet Volume 9.5 fL (9.4-12.4); Nucleated Red Blood Cells 0.4 /100 WBC (0); Platelet Count 144 K/mcL (140-400); Red Blood Count 3.51 M/mcL (4.19-5.50); White Blood Count 12.7 K/mcL (4.3-11.1)
[2020-04-27 02:27] LABS: BUN/Creatinine Ratio 16 (6-26); Blood Urea Nitrogen 16 mg/dL (6-20); Calcium 8.8 mg/dL (8.6-10.3); Carbon Dioxide 31 mEq/L (23-29); Chloride 102 mEq/L (98-107); Glucose 137 mg/dL (70-105); Osmolality,Calculated 295 (280-300); Potassium 3.4 mEq/L (3.5-5.1); Sodium 141 mEq/L (136-145); eGFR For African Americans > 60 (> 60); eGFR For Non-African Americans > 60 (> 60)
[2020-04-27 03:29] LABS: Lymphocytes # 1.8 K/mcL (0.6-4.6); Monocytes # 0.3 K/mcL (0.0-1.3); Neutrophils # 10.4 K/mcL (1.6-8.9); Platelet Estimate Normal (Normal)
[2020-04-27] MEDS: *HR* OxyCODONE/APAP 5/325 TABLET PO PRN (04:22)
[2020-04-27 04:35] LABS: % Iron Saturation 19 % (20-55); Iron 53 mcg/dL (65-175); Transferrin 196 mg/dL (203-362)
[2020-04-27 04:53] LABS: Ferritin 513 ng/mL (20-250)
[2020-04-27] MEDS: Apixaban 5 MG TABLET PO SCH ×2 (08:31→21:46)
[2020-04-27] MEDS: Piperacillin/Tazobactam 3.375 GM in 0.9 % Sodium Chloride Mini Bag 100 ML IVPB SCH (08:32)
[2020-04-27] MEDS: Furosemide 40 MG TABLET PO SCH (08:43)
[2020-04-27] MEDS: *HR* Acetylcysteine 20% 600 MG/3 ML ORAL SYRINGE PO SCH (08:43)
[2020-04-27] MEDS ORDERED: *HR* HYDROmorphone (PF) 1 MG/ML SYRINGE IVP PRN ×2 (10:03→10:08)
[2020-04-27] MEDS: Budesonide/Formoterol 160/4.5 1 PUFF INH IH SCH ×2 (10:11→21:01)
[2020-04-27] MEDS: *HR* OxyCODONE/APAP 10/325 TABLET PO PRN ×3 (11:10→21:45)
[2020-04-28] MEDS: *HR* OxyCODONE/APAP 10/325 TABLET PO PRN ×5 (01:56→21:58)
[2020-04-28] MEDS: *HR* Acetylcysteine 20% 600 MG/3 ML ORAL SYRINGE PO SCH (09:00)
[2020-04-28] MEDS: Furosemide 40 MG TABLET PO SCH (09:01)
[2020-04-28] MEDS: Apixaban 5 MG TABLET PO SCH (09:01)
[2020-04-28] MEDS: *HR* LORazepam 0.5 MG TABLET PO PRN ×2 (09:15→19:59)
[2020-04-28] MEDS: Budesonide/Formoterol 160/4.5 1 PUFF INH IH SCH ×2 (10:04→22:05)
[2020-04-28 12:19] LABS: INR 1.2
[2020-04-28] MEDS ORDERED: Warfarin perPT PO PRN (18:00)
[2020-04-28] MEDS: *HR* Enoxaparin 120 MG/0.8 ML SYRINGE SQ SCH (20:01)
[2020-04-28] MEDS ORDERED: *HR* Warfarin 7.5 MG TABLET PO ONE (21:00)
[2020-04-29] MEDS: *HR* OxyCODONE/APAP 10/325 TABLET PO PRN ×2 (02:02→06:41)
[2020-04-29 05:40] LABS: INR 1.2; Prothrombin Time 13.4 Seconds (9.4-12.1)
[2020-04-29] MEDS: Heparin 25,000UNIT/250ML 1/2NS 25,000 UNIT/250 ML IV.SOLN IVC SCH (07:57)
[2020-04-29] MEDS: Amiodarone Premix 360 MG/200 ML BAG IVC SCH (07:57)
[2020-04-29] MEDS: *HR* Enoxaparin 120 MG/0.8 ML SYRINGE SQ SCH (10:05)
[2020-04-29] MEDS: *HR* Acetylcysteine 20% 600 MG/3 ML ORAL SYRINGE PO SCH (10:06)
[2020-04-29] MEDS: Furosemide 40 MG TABLET PO SCH (10:06)
[2020-04-29] MEDS: Budesonide/Formoterol 160/4.5 1 PUFF INH IH SCH (10:27)
[2020-04-29 11:15] VITALS: BP 125/77
[2020-04-29] MEDS ORDERED: *HR* Warfarin 7.5 MG TABLET PO ONE (18:00)
== END 2020-04-29 14:44 | disposition home or self-care (01) | DRG 309 ==
LOC: 2ANU 19:23 → EMEROOARM 19:23 → SUATTDRO 23:23 → ICNU 23:48 → 2NNU 04-26 19:14 → 2ANU 04-28 15:38
PROVIDERS: ADMIT Internal Medicine Nephrology; ATTEND Internal Medicine

== ENCOUNTER 2020-08-14 16:12 | Inpatient (IN) ==
[2020-08-14 17:21] LABS: Basophils # 0.1 K/mcL (0.0-0.2); Eosinophils # 0.8 K/mcL (0.0-0.6); Eosinophils % 12.8 %; Hematocrit 35.2 % (37.5-50.1); Hemoglobin 10.9 g/dL (12.9-16.9); Immature Granulocytes % 0.3 % (0-4); Lymphocytes # 0.4 K/mcL (0.6-4.6); Lymphocytes % 6.6 %; Mean Corpuscular Hemoglobin 29.4 pg (28.0-33.3); Mean Corpuscular Volume 94.9 fL (83.0-100.0); Mean Platelet Volume 8.9 fL (9.4-12.4); Monocytes # 0.4 K/mcL (0.0-1.3); Monocytes % 7.5 %; Neutrophils # 4.2 K/mcL (1.6-8.9); Platelet Count 178 K/mcL (140-400); Red Blood Count 3.71 M/mcL (4.19-5.50); Segmented Neutrophils % 71.8 %; White Blood Count 5.9 K/mcL (4.3-11.1)
[2020-08-14 17:43] LABS: BUN/Creatinine Ratio 19 (6-26); Blood Urea Nitrogen 20 mg/dL (6-20); Calcium 9.9 mg/dL (8.6-10.3); Carbon Dioxide 34 mEq/L (23-29); Chloride 97 mEq/L (98-107); Glucose 102 mg/dL (70-105); Osmolality,Calculated 291 (280-300); Potassium 3.9 mEq/L (3.5-5.1); Sodium 139 mEq/L (136-145); Troponin I < 0.03 ng/mL (< 0.04); eGFR For African Americans > 60 (> 60); eGFR For Non-African Americans > 60 (> 60)
[2020-08-14 20:01] LABS: Adenovirus Not Detected (Not Detect); Bordetella Pertussis Not Detected (Not Detect); Chlamydophila pneumoniae Not Detected (Not Detect); Coronavirus 229E Not Detected (Not Detect); Coronavirus HKU1 Not Detected (Not Detect); Coronavirus NL63 Not Detected (Not Detect); Coronavirus OC43 Not Detected (Not Detect); Human Metapneumovirus Not Detected (Not Detect); Human Rhinovirus/Enterovirus Not Detected (Not Detect); Influenza A Subtype 2009 H1 Not Detected (Not Detect); Influenza B Not Detected (Not Detect); Mycoplasma pneumoniae Not Detected (Not Detect); Parainfluenza Virus 1 Not Detected (Not Detect); Parainfluenza Virus 2 Not Detected (Not Detect); Parainfluenza Virus 3 Not Detected (Not Detect); Parainfluenza Virus 4 Not Detected (Not Detect); Respiratory Syncytial Virus Not Detected (Not Detect); SARS-CoV-2 Not Detected (Not Detect)
[2020-08-14] MEDS ORDERED: Ipratropium/Albuterol Neb 3 ML IH ONE (21:06)
[2020-08-14] MEDS ORDERED: Piperacillin/Tazobactam 3.375 GM in 0.9 % Sodium Chloride Mini Bag 100 ML IVPB ONE (21:06)
[2020-08-14] MEDS ORDERED: methylPREDNISolone 125 MG/2 ML VIAL IVP ONE (21:06)
[2020-08-14] MEDS ORDERED: Isovue-370 500 ML BOTTLE IVP ONE (21:16)
[2020-08-14] MEDS ORDERED: Albuterol 2.5 MG/3 ML NEBULIZER IH PRN (21:26)
[2020-08-14] MEDS ORDERED: Ondansetron 4 MG/2 ML VIAL IVP PRN (21:27)
[2020-08-14] MEDS ORDERED: Acetaminophen 325 MG TABLET PO PRN (21:27)
[2020-08-14] MEDS ORDERED: Naloxone 0.4 MG/ML INJ IVP PRN (21:27)
[2020-08-14] MEDS ORDERED: Warfarin perPT PO PRN (23:56)
[2020-08-14] MEDS ORDERED: *HR* OxyCODONE/APAP 5/325 TABLET PO PRN (23:57)
[2020-08-15] MEDS ORDERED: Ondansetron ODT 4 MG TAB.RAPDIS PO PRN (00:06)
[2020-08-15] MEDS: Albuterol 2.5 MG/3 ML NEBULIZER IH SCH ×5 (00:14→09:30)
[2020-08-15 00:18] LABS: Basophils % 0.5 %; Eosinophils % 0.7 %; Hematocrit 33.6 % (37.5-50.1); Hemoglobin 10.5 g/dL (12.9-16.9); Immature Granulocytes % 0.2 % (0-4); Lymphocytes # 0.3 K/mcL (0.6-4.6); Lymphocytes % 5.9 %; Mean Corpuscular HGB Conc 31.3 g/dL (31.6-35.5); Mean Corpuscular Hemoglobin 29.2 pg (28.0-33.3); Mean Corpuscular Volume 93.3 fL (83.0-100.0); Mean Platelet Volume 8.9 fL (9.4-12.4); Monocytes # 0.3 K/mcL (0.0-1.3); Monocytes % 4.6 %; Neutrophils # 4.9 K/mcL (1.6-8.9); Platelet Count 176 K/mcL (140-400); Red Cell Distribution Width 13.2 % (11.5-14.5); Segmented Neutrophils % 88.1 %; White Blood Count 5.6 K/mcL (4.3-11.1)
[2020-08-15 00:32] LABS: INR 1.9; Prothrombin Time 21.4 Seconds (9.4-12.1)
[2020-08-15 00:37] LABS: BUN/Creatinine Ratio 20 (6-26); Blood Urea Nitrogen 19 mg/dL (6-20); Calcium 9.9 mg/dL (8.6-10.3); Carbon Dioxide 32 mEq/L (23-29); Chloride 95 mEq/L (98-107); Glucose 114 mg/dL (70-105); Osmolality,Calculated 287 (280-300); Sodium 137 mEq/L (136-145); eGFR For African Americans > 60 (> 60); eGFR For Non-African Americans > 60 (> 60)
[2020-08-15] MEDS ORDERED: *HR* Warfarin 5 MG TABLET PO ONE ×2 (01:00→18:00)
[2020-08-15 05:49] LABS: INR 1.9; Prothrombin Time 21.3 Seconds (9.4-12.1)
[2020-08-15] MEDS ORDERED: *HR* Heparin 5,000 UNIT/ML VIAL SQ SCH (06:00)
[2020-08-15] MEDS: Losartan/HCTZ 50-12.5 TABLET PO SCH (08:54)
[2020-08-15] MEDS: Furosemide 40 MG TABLET PO SCH (08:54)
[2020-08-15] MEDS: Azithromycin 250 MG TABLET PO SCH (08:55)
[2020-08-15] MEDS ORDERED: predniSONE 20 MG TABLET PO SCH (09:00)
[2020-08-15] MEDS ORDERED: Roflumilast [Daliresp] 500 MCG Tablet PO SCH (09:30)
[2020-08-15] MEDS ORDERED: *HR* LORazepam 1 MG TABLET PO PRN (10:19)
[2020-08-15] MEDS: Ipratropium/Albuterol Neb 3 ML IH PRN (11:58)
[2020-08-15] MEDS: Tiotropium 10 INH DOSE IH SCH (11:58)
[2020-08-15] MEDS: Budesonide/Formoterol 160/4.5 1 PUFF INH IH SCH ×2 (11:58→22:16)
[2020-08-15] MEDS: *HR* OxyCODONE/APAP 5/325 TABLET PO PRN (14:06)
[2020-08-15] MEDS: *HR* LORazepam 1 MG TABLET PO SCH ×2 (14:15→21:38)
[2020-08-15] MEDS ORDERED: Albuterol 2.5 MG/3 ML NEBULIZER IH ONE (14:18)
[2020-08-15] MEDS ORDERED: Albuterol 2.5 MG/3 ML NEBULIZER ONE (14:22)
[2020-08-15] MEDS: Ipratropium/Albuterol Neb 3 ML IH SCH ×2 (16:02→22:17)
[2020-08-15] MEDS: MethylPREDNISolone 40 MG/ML VIAL IVP SCH (17:59)
[2020-08-16 04:25] LABS: Basophils % 0.2 %; Hematocrit 34.6 % (37.5-50.1); Hemoglobin 10.8 g/dL (12.9-16.9); Immature Granulocytes % 0.4 % (0-4); Lymphocytes # 0.3 K/mcL (0.6-4.6); Lymphocytes % 6.3 %; Mean Corpuscular HGB Conc 31.2 g/dL (31.6-35.5); Mean Corpuscular Hemoglobin 29.6 pg (28.0-33.3); Mean Corpuscular Volume 94.8 fL (83.0-100.0); Mean Platelet Volume 9.1 fL (9.4-12.4); Monocytes # 0.3 K/mcL (0.0-1.3); Monocytes % 6.1 %; Neutrophils # 4.5 K/mcL (1.6-8.9); Platelet Count 199 K/mcL (140-400); Red Blood Count 3.65 M/mcL (4.19-5.50); White Blood Count 5.2 K/mcL (4.3-11.1)
[2020-08-16] MEDS: Ipratropium/Albuterol Neb 3 ML IH SCH ×4 (04:25→21:01)
[2020-08-16 04:42] LABS: INR 1.9
[2020-08-16 04:46] LABS: BUN/Creatinine Ratio 36 (6-26); Blood Urea Nitrogen 35 mg/dL (6-20); Carbon Dioxide 31 mEq/L (23-29); Chloride 98 mEq/L (98-107); Glucose 152 mg/dL (70-105); Osmolality,Calculated 297 (280-300); Potassium 4.1 mEq/L (3.5-5.1); Sodium 138 mEq/L (136-145); eGFR For African Americans > 60 (> 60); eGFR For Non-African Americans > 60 (> 60)
[2020-08-16] MEDS: MethylPREDNISolone 40 MG/ML VIAL IVP SCH ×2 (06:15→16:42)
[2020-08-16] MEDS: Tiotropium 10 INH DOSE IH SCH (07:51)
[2020-08-16] MEDS: *HR* LORazepam 1 MG TABLET PO SCH ×3 (08:40→19:44)
[2020-08-16] MEDS: Losartan/HCTZ 50-12.5 TABLET PO SCH (08:41)
[2020-08-16] MEDS: Furosemide 40 MG TABLET PO SCH (08:41)
[2020-08-16] MEDS: Azithromycin 250 MG TABLET PO SCH (08:42)
[2020-08-16] MEDS: Budesonide/Formoterol 160/4.5 1 PUFF INH IH SCH ×2 (09:37→21:01)
[2020-08-16] MEDS: *HR* Acetylcysteine 20% 600 MG/3 ML ORAL SYRINGE PO SCH (12:03)
[2020-08-16] MEDS: *HR* OxyCODONE/APAP 5/325 TABLET PO PRN (13:51)
[2020-08-16] MEDS ORDERED: *HR* Warfarin 5 MG TABLET PO ONE (18:00)
[2020-08-16] MEDS: Ipratropium/Albuterol Neb 3 ML IH PRN (23:57)
[2020-08-17 02:05] LABS: Basophils % 0.2 %; Hematocrit 35.2 % (37.5-50.1); Hemoglobin 10.9 g/dL (12.9-16.9); Immature Granulocytes % 0.5 % (0-4); Lymphocytes # 0.3 K/mcL (0.6-4.6); Lymphocytes % 4.4 %; Mean Corpuscular Hemoglobin 29.9 pg (28.0-33.3); Mean Corpuscular Volume 96.4 fL (83.0-100.0); Mean Platelet Volume 8.9 fL (9.4-12.4); Monocytes # 0.3 K/mcL (0.0-1.3); Monocytes % 4.9 %; Neutrophils # 5.9 K/mcL (1.6-8.9); Platelet Count 165 K/mcL (140-400); Red Blood Count 3.65 M/mcL (4.19-5.50); Red Cell Distribution Width 13.1 % (11.5-14.5); White Blood Count 6.5 K/mcL (4.3-11.1)
[2020-08-17 02:12] LABS: INR 2.5; Prothrombin Time 28.3 Seconds (9.4-12.1)
[2020-08-17 02:23] LABS: BUN/Creatinine Ratio 37 (6-26); Blood Urea Nitrogen 42 mg/dL (6-20); Calcium 9.5 mg/dL (8.6-10.3); Carbon Dioxide 35 mEq/L (23-29); Chloride 99 mEq/L (98-107); Glucose 197 mg/dL (70-105); Osmolality,Calculated 306 (280-300); Sodium 140 mEq/L (136-145); eGFR For African Americans > 60 (> 60); eGFR For Non-African Americans > 60 (> 60)
[2020-08-17] MEDS: Ipratropium/Albuterol Neb 3 ML IH SCH ×5 (04:36→20:50)
[2020-08-17] MEDS: MethylPREDNISolone 40 MG/ML VIAL IVP SCH ×2 (05:32→16:49)
[2020-08-17] MEDS: Furosemide 40 MG TABLET PO SCH (08:11)
[2020-08-17] MEDS: *HR* LORazepam 1 MG TABLET PO SCH ×3 (08:11→21:03)
[2020-08-17] MEDS: Azithromycin 250 MG TABLET PO SCH (08:11)
[2020-08-17] MEDS: Losartan/HCTZ 50-12.5 TABLET PO SCH (08:11)
[2020-08-17] MEDS: *HR* Acetylcysteine 20% 600 MG/3 ML ORAL SYRINGE PO SCH (08:13)
[2020-08-17] MEDS: Budesonide/Formoterol 160/4.5 1 PUFF INH IH SCH ×2 (10:11→20:50)
[2020-08-17] MEDS: Tiotropium 10 INH DOSE IH SCH (10:14)
[2020-08-17] MEDS: *HR* OxyCODONE/APAP 5/325 TABLET PO PRN (15:35)
[2020-08-17] MEDS ORDERED: *HR* Warfarin 2.5 MG TABLET PO ONE (18:00)
[2020-08-18] MEDS: Ipratropium/Albuterol Neb 3 ML IH SCH ×7 (00:54→23:37)
[2020-08-18 02:53] LABS: Basophils % 0.1 %; Hematocrit 35.5 % (37.5-50.1); Hemoglobin 10.7 g/dL (12.9-16.9); Immature Granulocytes % 0.6 % (0-4); Lymphocytes # 0.3 K/mcL (0.6-4.6); Lymphocytes % 4.7 %; Mean Corpuscular HGB Conc 30.1 g/dL (31.6-35.5); Mean Corpuscular Hemoglobin 29.1 pg (28.0-33.3); Mean Corpuscular Volume 96.5 fL (83.0-100.0); Mean Platelet Volume 9.4 fL (9.4-12.4); Monocytes # 0.5 K/mcL (0.0-1.3); Monocytes % 6.8 %; Neutrophils # 6.3 K/mcL (1.6-8.9); Platelet Count 185 K/mcL (140-400); Red Blood Count 3.68 M/mcL (4.19-5.50); Segmented Neutrophils % 87.8 %; White Blood Count 7.2 K/mcL (4.3-11.1)
[2020-08-18 03:00] LABS: INR 3.2; Prothrombin Time 35.4 Seconds (9.4-12.1)
[2020-08-18 03:14] LABS: BUN/Creatinine Ratio 45 (6-26); Blood Urea Nitrogen 44 mg/dL (6-20); Calcium 9.7 mg/dL (8.6-10.3); Carbon Dioxide 37 mEq/L (23-29); Chloride 98 mEq/L (98-107); Glucose 178 mg/dL (70-105); Osmolality,Calculated 310 (280-300); Potassium 3.7 mEq/L (3.5-5.1); Sodium 142 mEq/L (136-145); eGFR For African Americans > 60 (> 60); eGFR For Non-African Americans > 60 (> 60)
[2020-08-18] MEDS: MethylPREDNISolone 40 MG/ML VIAL IVP SCH ×2 (05:37→16:45)
[2020-08-18] MEDS: Ipratropium/Albuterol Neb 3 ML IH PRN (05:58)
[2020-08-18] MEDS: Budesonide/Formoterol 160/4.5 1 PUFF INH IH SCH ×2 (07:51→20:29)
[2020-08-18] MEDS: Tiotropium 10 INH DOSE IH SCH (07:54)
[2020-08-18] MEDS: Losartan/HCTZ 50-12.5 TABLET PO SCH (08:41)
[2020-08-18] MEDS: *HR* Acetylcysteine 20% 600 MG/3 ML ORAL SYRINGE PO SCH (08:41)
[2020-08-18] MEDS: Furosemide 40 MG/4 ML VIAL IVP SCH (08:42)
[2020-08-18] MEDS: Azithromycin 250 MG TABLET PO SCH (08:42)
[2020-08-18] MEDS: *HR* LORazepam 1 MG TABLET PO SCH ×3 (08:42→20:47)
[2020-08-18] MEDS: *HR* OxyCODONE/APAP 5/325 TABLET PO PRN ×2 (08:52→14:36)
[2020-08-19 01:45] LABS: Basophils % 0.1 %; Hematocrit 36.4 % (37.5-50.1); Hemoglobin 10.9 g/dL (12.9-16.9); Immature Granulocytes % 0.8 % (0-4); Lymphocytes # 0.3 K/mcL (0.6-4.6); Lymphocytes % 3.8 %; Mean Corpuscular HGB Conc 29.9 g/dL (31.6-35.5); Mean Corpuscular Hemoglobin 28.5 pg (28.0-33.3); Mean Corpuscular Volume 95.3 fL (83.0-100.0); Mean Platelet Volume 9.3 fL (9.4-12.4); Monocytes # 0.5 K/mcL (0.0-1.3); Neutrophils # 6.4 K/mcL (1.6-8.9); Platelet Count 185 K/mcL (140-400); Red Blood Count 3.82 M/mcL (4.19-5.50); Red Cell Distribution Width 12.9 % (11.5-14.5); Segmented Neutrophils % 88.3 %; White Blood Count 7.3 K/mcL (4.3-11.1)
[2020-08-19 01:53] LABS: INR 2.9; Prothrombin Time 32.2 Seconds (9.4-12.1)
[2020-08-19 02:03] LABS: BUN/Creatinine Ratio 48 (6-26); Blood Urea Nitrogen 47 mg/dL (6-20); Calcium 9.3 mg/dL (8.6-10.3); Carbon Dioxide 35 mEq/L (23-29); Chloride 98 mEq/L (98-107); Glucose 162 mg/dL (70-105); Osmolality,Calculated 306 (280-300); Potassium 3.7 mEq/L (3.5-5.1); Sodium 140 mEq/L (136-145); eGFR For African Americans > 60 (> 60); eGFR For Non-African Americans > 60 (> 60)
[2020-08-19] MEDS: Ipratropium/Albuterol Neb 3 ML IH SCH ×6 (04:06→23:21)
[2020-08-19] MEDS: MethylPREDNISolone 40 MG/ML VIAL IVP SCH ×2 (06:05→17:17)
[2020-08-19] MEDS: Budesonide/Formoterol 160/4.5 1 PUFF INH IH SCH ×2 (07:25→19:49)
[2020-08-19] MEDS: *HR* LORazepam 1 MG TABLET PO SCH ×3 (09:25→20:10)
[2020-08-19] MEDS: Losartan/HCTZ 50-12.5 TABLET PO SCH (09:27)
[2020-08-19] MEDS: *HR* OxyCODONE/APAP 5/325 TABLET PO PRN (09:27)
[2020-08-19] MEDS: Azithromycin 250 MG TABLET PO SCH (09:28)
[2020-08-19] MEDS: Furosemide 40 MG/4 ML VIAL IVP SCH (09:29)
[2020-08-19] MEDS: Ipratropium/Albuterol Neb 3 ML IH PRN (17:39)
[2020-08-19] MEDS ORDERED: *HR* Warfarin 2.5 MG TABLET PO ONE (18:00)
[2020-08-20 01:08] LABS: Basophils % 0.1 %; Hematocrit 35.2 % (37.5-50.1); Hemoglobin 10.9 g/dL (12.9-16.9); Immature Granulocytes % 1.1 % (0-4); Lymphocytes # 0.2 K/mcL (0.6-4.6); Lymphocytes % 3.4 %; Mean Corpuscular Hemoglobin 29.6 pg (28.0-33.3); Mean Corpuscular Volume 95.7 fL (83.0-100.0); Mean Platelet Volume 9.2 fL (9.4-12.4); Monocytes # 0.4 K/mcL (0.0-1.3); Monocytes % 5.9 %; Neutrophils # 6.4 K/mcL (1.6-8.9); Platelet Count 176 K/mcL (140-400); Red Blood Count 3.68 M/mcL (4.19-5.50); Segmented Neutrophils % 89.5 %; White Blood Count 7.1 K/mcL (4.3-11.1)
[2020-08-20 01:16] LABS: INR 1.9; Prothrombin Time 21.8 Seconds (9.4-12.1)
[2020-08-20 01:24] LABS: BUN/Creatinine Ratio 39 (6-26); Blood Urea Nitrogen 47 mg/dL (6-20); Calcium 9.1 mg/dL (8.6-10.3); Carbon Dioxide 37 mEq/L (23-29); Chloride 96 mEq/L (98-107); Glucose 238 mg/dL (70-105); Osmolality,Calculated 310 (280-300); Potassium 3.9 mEq/L (3.5-5.1); Sodium 140 mEq/L (136-145); eGFR For African Americans > 60 (> 60); eGFR For Non-African Americans > 60 (> 60)
[2020-08-20] MEDS: Ipratropium/Albuterol Neb 3 ML IH SCH ×5 (04:02→19:31)
[2020-08-20] MEDS: MethylPREDNISolone 40 MG/ML VIAL IVP SCH ×2 (05:19→17:49)
[2020-08-20] MEDS: Budesonide/Formoterol 160/4.5 1 PUFF INH IH SCH ×2 (08:10→19:31)
[2020-08-20 08:17] LABS: ABG Base Excess 11 mEq/L (-2 to 3); ABG HCO3 39 mEq/L (21-27); ABG Oxygen Saturation 96 % (95-98); ABG PCO2 69 mmHg (35-45); ABG PH 7.36 pH Units (7.32-7.45); ABG PO2 90 mmHg (85-104); ABG TCO2 42 mEq/L (20-26)
[2020-08-20] MEDS: *HR* LORazepam 1 MG TABLET PO SCH ×3 (08:29→20:19)
[2020-08-20] MEDS: Furosemide 40 MG TABLET PO SCH (08:30)
[2020-08-20] MEDS: *HR* OxyCODONE/APAP 5/325 TABLET PO PRN ×2 (08:30→17:55)
[2020-08-20] MEDS: Losartan/HCTZ 50-12.5 TABLET PO SCH (08:30)
[2020-08-20] MEDS: Nystatin SUSP 5 ML UD.LIQ PO SCH ×3 (13:10→20:20)
[2020-08-20] MEDS: Ipratropium/Albuterol Neb 3 ML IH PRN (17:54)
[2020-08-20] MEDS ORDERED: *HR* Warfarin 5 MG TABLET PO ONE (18:00)
[2020-08-20] MEDS: Melatonin 3 MG TABLET PO PRN (20:22)
[2020-08-21] MEDS: Ipratropium/Albuterol Neb 3 ML IH SCH ×6 (00:04→20:05)
[2020-08-21] MEDS: *HR* OxyCODONE/APAP 5/325 TABLET PO PRN ×3 (00:12→18:10)
[2020-08-21 03:20] LABS: Basophils % 0.3 %; Hematocrit 34.6 % (37.5-50.1); Hemoglobin 10.6 g/dL (12.9-16.9); Immature Granulocytes % 1.5 % (0-4); Lymphocytes # 0.3 K/mcL (0.6-4.6); Lymphocytes % 3.3 %; Mean Corpuscular HGB Conc 30.6 g/dL (31.6-35.5); Mean Corpuscular Hemoglobin 28.5 pg (28.0-33.3); Mean Platelet Volume 8.8 fL (9.4-12.4); Monocytes # 0.5 K/mcL (0.0-1.3); Monocytes % 5.2 %; Neutrophils # 8.5 K/mcL (1.6-8.9); Platelet Count 164 K/mcL (140-400); Red Blood Count 3.72 M/mcL (4.19-5.50); Red Cell Distribution Width 13.1 % (11.5-14.5); Segmented Neutrophils % 89.7 %; White Blood Count 9.5 K/mcL (4.3-11.1)
[2020-08-21 03:28] LABS: INR 1.7; Prothrombin Time 19.2 Seconds (9.4-12.1)
[2020-08-21 03:34] LABS: BUN/Creatinine Ratio 48 (6-26); Blood Urea Nitrogen 47 mg/dL (6-20); Calcium 9.2 mg/dL (8.6-10.3); Carbon Dioxide 36 mEq/L (23-29); Chloride 96 mEq/L (98-107); Glucose 210 mg/dL (70-105); Osmolality,Calculated 306 (280-300); Potassium 4.1 mEq/L (3.5-5.1); Sodium 139 mEq/L (136-145); eGFR For African Americans > 60 (> 60); eGFR For Non-African Americans > 60 (> 60)
[2020-08-21] MEDS: MethylPREDNISolone 40 MG/ML VIAL IVP SCH ×2 (05:44→18:13)
[2020-08-21] MEDS: Budesonide/Formoterol 160/4.5 1 PUFF INH IH SCH ×2 (07:46→20:05)
[2020-08-21] MEDS: *HR* LORazepam 1 MG TABLET PO SCH ×3 (09:50→20:14)
[2020-08-21] MEDS: Furosemide 40 MG TABLET PO SCH (09:50)
[2020-08-21] MEDS: Losartan/HCTZ 50-12.5 TABLET PO SCH (09:50)
[2020-08-21] MEDS: Nystatin SUSP 5 ML UD.LIQ PO SCH ×4 (09:50→20:14)
[2020-08-21] MEDS ORDERED: *HR* Warfarin 5 MG TABLET PO ONE (18:00)
[2020-08-21] MEDS: Melatonin 3 MG TABLET PO PRN (21:26)
[2020-08-22] MEDS: *HR* OxyCODONE/APAP 5/325 TABLET PO PRN (00:14)
[2020-08-22] MEDS: Ipratropium/Albuterol Neb 3 ML IH SCH ×6 (00:28→19:56)
[2020-08-22] MEDS: MethylPREDNISolone 40 MG/ML VIAL IVP SCH ×2 (05:12→19:04)
[2020-08-22 07:26] LABS: INR 1.9; Prothrombin Time 22.1 Seconds (9.4-12.1)
[2020-08-22] MEDS: Budesonide/Formoterol 160/4.5 1 PUFF INH IH SCH ×2 (07:38→19:56)
[2020-08-22 08:15] LABS: BUN/Creatinine Ratio 57 (6-26); Blood Urea Nitrogen 54 mg/dL (6-20); Calcium 8.9 mg/dL (8.6-10.3); Carbon Dioxide 32 mEq/L (23-29); Chloride 93 mEq/L (98-107); Glucose 151 mg/dL (70-105); Magnesium 1.6 mg/dL (1.6-2.6); Osmolality,Calculated 298 (280-300); Potassium 4.3 mEq/L (3.5-5.1); Sodium 135 mEq/L (136-145); eGFR For African Americans > 60 (> 60); eGFR For Non-African Americans > 60 (> 60)
[2020-08-22] MEDS: Losartan/HCTZ 50-12.5 TABLET PO SCH (09:20)
[2020-08-22] MEDS: *HR* LORazepam 1 MG TABLET PO SCH ×3 (09:20→22:25)
[2020-08-22] MEDS: Furosemide 40 MG TABLET PO SCH (09:20)
[2020-08-22] MEDS: Nystatin SUSP 5 ML UD.LIQ PO SCH ×4 (09:21→22:25)
[2020-08-22] MEDS ORDERED: *HR* Warfarin 5 MG TABLET PO ONE (18:00)
[2020-08-23] MEDS: Ipratropium/Albuterol Neb 3 ML IH SCH ×5 (00:21→15:20)
[2020-08-23] MEDS: *HR* OxyCODONE/APAP 5/325 TABLET PO PRN ×2 (01:12→08:42)
[2020-08-23 04:02] LABS: BUN/Creatinine Ratio 59 (6-26); Blood Urea Nitrogen 49 mg/dL (6-20); Calcium 8.8 mg/dL (8.6-10.3); Carbon Dioxide 32 mEq/L (23-29); Chloride 93 mEq/L (98-107); Glucose 187 mg/dL (70-105); Osmolality,Calculated 296 (280-300); Potassium 4.1 mEq/L (3.5-5.1); Sodium 134 mEq/L (136-145); eGFR For African Americans > 60 (> 60); eGFR For Non-African Americans > 60 (> 60)
[2020-08-23 04:04] LABS: INR 2.9
[2020-08-23] MEDS: MethylPREDNISolone 40 MG/ML VIAL IVP SCH (05:24)
[2020-08-23] MEDS: Budesonide/Formoterol 160/4.5 1 PUFF INH IH SCH (07:30)
[2020-08-23] MEDS: Furosemide 40 MG TABLET PO SCH (08:38)
[2020-08-23] MEDS: Losartan/HCTZ 50-12.5 TABLET PO SCH (08:39)
[2020-08-23] MEDS: Nystatin SUSP 5 ML UD.LIQ PO SCH ×2 (08:39→15:08)
[2020-08-23] MEDS: *HR* LORazepam 1 MG TABLET PO SCH ×2 (08:39→15:08)
[2020-08-23 16:21] VITALS: BP 129/76
== END 2020-08-23 17:57 | disposition home or self-care (01) | DRG 190 ==
LOC: 2ANU 16:12 → EMEROOARM 16:12 → SUATTDRO 21:25 → 2ANU 22:40 → SUATTDRO 08-15 11:02
PROVIDERS: ADMIT Family Medicine; ATTEND Internal Medicine

== ENCOUNTER 2021-03-28 09:51 | Inpatient (IN) ==
[2021-03-28 11:14] LABS: Basophils # 0.1 K/mcL (0.0-0.2); Basophils % 0.5 %; Eosinophils % 0.2 %; Hematocrit 25.8 % (37.5-50.1); Hemoglobin 8.2 g/dL (12.9-16.9); Immature Granulocytes % 1.7 % (0-4); Lymphocytes # 0.2 K/mcL (0.6-4.6); Lymphocytes % 2.1 %; Mean Corpuscular HGB Conc 31.8 g/dL (31.6-35.5); Mean Corpuscular Hemoglobin 30.4 pg (28.0-33.3); Mean Corpuscular Volume 95.6 fL (83.0-100.0); Mean Platelet Volume 9.4 fL (9.4-12.4); Monocytes # 0.8 K/mcL (0.0-1.3); Monocytes % 7.1 %; Neutrophils # 9.5 K/mcL (1.6-8.9); Platelet Count 122 K/mcL (140-400); Red Cell Distribution Width 15.3 % (11.5-14.5); Segmented Neutrophils % 88.4 %; White Blood Count 10.7 K/mcL (4.3-11.1)
[2021-03-28 11:22] LABS: Prothrombin Time 32.7 Seconds (9.4-12.1)
[2021-03-28 11:25] LABS: Activated Partial Thrombo Time 36.7 Seconds (26.0-36.0)
[2021-03-28 11:52] LABS: Alanine Aminotransferase 23 Units/L (7-52); Albumin 3.8 g/dL (3.5-5.7); Albumin/Globulin Ratio 1.4 (1.1-2.2); Alkaline Phosphatase 95 Units/L (34-104); Aspartate Amino Transferase 25 Units/L (13-39); BUN/Creatinine Ratio 25 (6-26); Bilirubin,Direct 0.1 mg/dL (0.0-0.2); Bilirubin,Indirect 0.2 mg/dL (0.0-1.0); Bilirubin,Total 0.3 mg/dL (0.3-1.0); Blood Urea Nitrogen 30 mg/dL (6-20); Calcium 8.9 mg/dL (8.6-10.3); Carbon Dioxide 30 mEq/L (23-29); Chloride 99 mEq/L (98-107); Globulin 2.7 g/dL (2.4-3.5); Glucose 133 mg/dL (70-105); Osmolality,Calculated 296 (280-300); Potassium 4.5 mEq/L (3.5-5.1); Sodium 139 mEq/L (136-145); Total Protein 6.5 g/dL (6.4-8.9); Troponin I < 0.03 ng/mL (< 0.04); eGFR For African Americans > 60 (> 60); eGFR For Non-African Americans > 60 (> 60)
[2021-03-28] MEDS ORDERED: Ondansetron 4 MG/2 ML VIAL IVP PRN (15:07)
[2021-03-28] MEDS ORDERED: *HR* HYDROcodone/Acet 5/325 mg TABLET PO PRN (15:07)
[2021-03-28] MEDS ORDERED: *HR* OxyCODONE Immed Rel 5 MG TABLET PO PRN (15:07)
[2021-03-28] MEDS ORDERED: Naloxone 0.4 MG/ML INJ IVP PRN (15:07)
[2021-03-28] MEDS ORDERED: Melatonin 3 MG TABLET PO PRN (15:07)
[2021-03-28 16:10] LABS: Basophils % 0.4 %; Hematocrit 29.3 % (37.5-50.1); Hemoglobin 8.9 g/dL (12.9-16.9); Immature Granulocytes % 1.9 % (0-4); Lymphocytes # 0.3 K/mcL (0.6-4.6); Lymphocytes % 2.5 %; Mean Corpuscular HGB Conc 30.4 g/dL (31.6-35.5); Mean Corpuscular Hemoglobin 29.2 pg (28.0-33.3); Mean Corpuscular Volume 96.1 fL (83.0-100.0); Mean Platelet Volume 9.3 fL (9.4-12.4); Monocytes # 0.5 K/mcL (0.0-1.3); Neutrophils # 10.4 K/mcL (1.6-8.9); Platelet Count 129 K/mcL (140-400); Red Blood Count 3.05 M/mcL (4.19-5.50); Segmented Neutrophils % 91.2 %; White Blood Count 11.4 K/mcL (4.3-11.1)
[2021-03-28] MEDS ORDERED: Nystatin SUSP 5 ML UD.LIQ PO PRN (16:11)
[2021-03-28] MEDS ORDERED: Ipratropium/Albuterol Neb 3 ML IH PRN (16:11)
[2021-03-28] MEDS ORDERED: Baclofen 10 MG TABLET PO PRN (16:11)
[2021-03-28 16:51] LABS: Magnesium 1.4 mg/dL (1.6-2.6); Phosphorous 2.6 mg/dL (2.7-4.5)
[2021-03-28] MEDS: Furosemide 40 MG TABLET PO SCH (17:01)
[2021-03-28] MEDS: *HR* OxyCODONE Immed Rel 5 MG TABLET PO PRN ×2 (17:01→21:18)
[2021-03-28] MEDS: *HR* LORazepam 1 MG TABLET PO PRN (17:12)
[2021-03-28] MEDS ORDERED: Magnesium Sulfate 1 GM/102 ML PIGGYBACK IVPB ONE ×2 (17:49→19:00)
[2021-03-28] MEDS ORDERED: Potassium Phosphate 44 MEQ in 0.9 % Sodium Chloride 250 ML IVPB ONE ×3 (17:49→21:00)
[2021-03-28] MEDS ORDERED: *HR* Dextrose 50 % in Water (Syg) 50 ML SYRINGE IVP PRN (18:15)
[2021-03-28] MEDS ORDERED: Dextrose Gel 15 GM/37.5 ML TUBE PO PRN ×2 (18:15)
[2021-03-28] MEDS ORDERED: D5% in Water 1,000 ML IVC PRN (18:15)
[2021-03-28] MEDS: Tiotropium 10 INH DOSE IH SCH (19:47)
[2021-03-28] MEDS: Budesonide/Formoterol 160/4.5 1 PUFF INH IH SCH (20:25)
[2021-03-29 01:00] LABS: Basophils % 0.4 %; Eosinophils # 0.1 K/mcL (0.0-0.6); Eosinophils % 0.6 %; Hematocrit 25.3 % (37.5-50.1); Hemoglobin 7.9 g/dL (12.9-16.9); Immature Granulocytes % 1.8 % (0-4); Lymphocytes # 0.5 K/mcL (0.6-4.6); Lymphocytes % 5.8 %; Mean Corpuscular HGB Conc 31.2 g/dL (31.6-35.5); Mean Corpuscular Hemoglobin 29.8 pg (28.0-33.3); Mean Corpuscular Volume 95.5 fL (83.0-100.0); Mean Platelet Volume 9.2 fL (9.4-12.4); Monocytes # 0.8 K/mcL (0.0-1.3); Monocytes % 8.4 %; Neutrophils # 7.5 K/mcL (1.6-8.9); Platelet Count 126 K/mcL (140-400); Red Blood Count 2.65 M/mcL (4.19-5.50); Red Cell Distribution Width 15.1 % (11.5-14.5)
[2021-03-29 01:06] LABS: INR 2.6; Prothrombin Time 28.3 Seconds (9.4-12.1)
[2021-03-29 01:09] LABS: Activated Partial Thrombo Time 34.5 Seconds (26.0-36.0)
[2021-03-29 01:17] LABS: Alanine Aminotransferase 20 Units/L (7-52); Albumin 3.8 g/dL (3.5-5.7); Albumin/Globulin Ratio 1.5 (1.1-2.2); Alkaline Phosphatase 93 Units/L (34-104); Aspartate Amino Transferase 20 Units/L (13-39); BUN/Creatinine Ratio 21 (6-26); Bilirubin,Total 0.4 mg/dL (0.3-1.0); Blood Urea Nitrogen 22 mg/dL (6-20); Calcium 9.4 mg/dL (8.6-10.3); Carbon Dioxide 33 mEq/L (23-29); Chloride 96 mEq/L (98-107); Globulin 2.5 g/dL (2.4-3.5); Glucose 100 mg/dL (70-105); Osmolality,Calculated 291 (280-300); Sodium 139 mEq/L (136-145); Total Protein 6.3 g/dL (6.4-8.9); eGFR For African Americans > 60 (> 60); eGFR For Non-African Americans > 60 (> 60)
[2021-03-29] MEDS: *HR* OxyCODONE Immed Rel 5 MG TABLET PO PRN ×3 (06:03→17:54)
[2021-03-29] MEDS: Insulin LISPRO 300 UNITS/3 ML VIAL SUBQ SCH ×3 (07:19→18:22)
[2021-03-29] MEDS: Zinc Gluconate 100 MG Tablet PO SCH (07:21)
[2021-03-29] MEDS: Furosemide 40 MG TABLET PO SCH (07:28)
[2021-03-29] MEDS: *HR* LORazepam 1 MG TABLET PO PRN (07:28)
[2021-03-29] MEDS: Budesonide/Formoterol 160/4.5 1 PUFF INH IH SCH ×2 (07:48→20:41)
[2021-03-29 10:51] LABS: Hematocrit 27.2 % (37.5-50.1); Hemoglobin 8.2 g/dL (12.9-16.9)
[2021-03-29] MEDS: Tiotropium 10 INH DOSE IH SCH (18:35)
[2021-03-29] MEDS: Levalbuterol Neb 1.25 MG/3 ML IH PRN (18:35)
[2021-03-30 01:58] LABS: Basophils % 0.5 %; Eosinophils % 0.5 %; Hematocrit 25.8 % (37.5-50.1); Immature Granulocytes % 1.3 % (0-4); Lymphocytes # 0.4 K/mcL (0.6-4.6); Lymphocytes % 5.4 %; Mean Corpuscular Volume 96.6 fL (83.0-100.0); Mean Platelet Volume 9.2 fL (9.4-12.4); Monocytes # 0.7 K/mcL (0.0-1.3); Monocytes % 9.3 %; Neutrophils # 6.5 K/mcL (1.6-8.9); Platelet Count 110 K/mcL (140-400); Red Blood Count 2.67 M/mcL (4.19-5.50); Red Cell Distribution Width 15.3 % (11.5-14.5); White Blood Count 7.8 K/mcL (4.3-11.1)
[2021-03-30 02:14] LABS: Calcium 9.2 mg/dL (8.6-10.3); Potassium 4.1 mEq/L (3.5-5.1)
[2021-03-30] MEDS: *HR* OxyCODONE Immed Rel 5 MG TABLET PO PRN ×3 (05:05→20:41)
[2021-03-30] MEDS: Budesonide/Formoterol 160/4.5 1 PUFF INH IH SCH ×2 (07:43→19:40)
[2021-03-30] MEDS: Insulin LISPRO 300 UNITS/3 ML VIAL SUBQ SCH ×3 (08:17→16:45)
[2021-03-30] MEDS: Acetaminophen 325 MG TABLET PO PRN (08:23)
[2021-03-30] MEDS: Zinc Gluconate 100 MG Tablet PO SCH (10:12)
[2021-03-30] MEDS ORDERED: 0.9 % Sodium Chloride 1,000 ML IVC SCH (14:15)
[2021-03-30] MEDS: Tiotropium 10 INH DOSE IH SCH (19:39)
[2021-03-31 01:57] LABS: Immature Granulocytes % 0.9 % (0-4); Red Cell Distribution Width 15.1 % (11.5-14.5)
[2021-03-31 01:59] LABS: Basophils % 0.5 %; Eosinophils # 0.1 K/mcL (0.0-0.6); Eosinophils % 0.9 %; Hemoglobin 7.2 g/dL (12.9-16.9); Immature Platelets 1.6 % (1.1-6.1); Lymphocytes # 0.4 K/mcL (0.6-4.6); Lymphocytes % 5.3 %; Mean Corpuscular Hemoglobin 29.3 pg (28.0-33.3); Mean Corpuscular Volume 97.6 fL (83.0-100.0); Mean Platelet Volume 9.1 fL (9.4-12.4); Monocytes # 0.6 K/mcL (0.0-1.3); Monocytes % 8.5 %; Neutrophils # 5.5 K/mcL (1.6-8.9); Platelet Count 105 K/mcL (140-400); Red Blood Count 2.46 M/mcL (4.19-5.50); Segmented Neutrophils % 83.9 %; White Blood Count 6.6 K/mcL (4.3-11.1)
[2021-03-31 02:17] LABS: BUN/Creatinine Ratio 22 (6-26); Blood Urea Nitrogen 25 mg/dL (6-20); Calcium 8.9 mg/dL (8.6-10.3); Carbon Dioxide 32 mEq/L (23-29); Chloride 96 mEq/L (98-107); Glucose 104 mg/dL (70-105); Osmolality,Calculated 293 (280-300); Potassium 4.2 mEq/L (3.5-5.1); Sodium 139 mEq/L (136-145); eGFR For African Americans > 60 (> 60); eGFR For Non-African Americans > 60 (> 60)
[2021-03-31] MEDS: *HR* OxyCODONE Immed Rel 5 MG TABLET PO PRN ×4 (04:48→20:39)
[2021-03-31] MEDS ORDERED: Albuterol 2.5 MG/3 ML NEBULIZER ONE (08:08)
[2021-03-31] MEDS: Tiotropium 10 INH DOSE IH SCH (08:10)
[2021-03-31] MEDS: Budesonide/Formoterol 160/4.5 1 PUFF INH IH SCH ×2 (08:10→20:27)
[2021-03-31] MEDS: Insulin LISPRO 300 UNITS/3 ML VIAL SUBQ SCH ×3 (08:24→17:11)
[2021-03-31] MEDS: Zinc Gluconate 100 MG Tablet PO SCH (09:03)
[2021-03-31] MEDS: Furosemide 40 MG TABLET PO SCH (09:03)
[2021-03-31 09:11] LABS: INR 1.5; Prothrombin Time 16.7 Seconds (9.4-12.1)
[2021-03-31] MEDS: Levalbuterol Neb 1.25 MG/3 ML IH PRN (16:38)
[2021-03-31 17:46] LABS: Hematocrit 25.4 % (37.5-50.1); Hemoglobin 7.8 g/dL (12.9-16.9)
[2021-03-31] MEDS ORDERED: *HR* Warfarin 2.5 MG TABLET PO ONE (18:00)
[2021-03-31] MEDS ORDERED: Warfarin perPT PO PRN (18:00)
[2021-03-31 18:05] LABS: Iron 14 mcg/dL (65-175)
[2021-03-31 18:22] LABS: Ferritin 839 ng/mL (20-250)
[2021-03-31 18:31] LABS: Folate 18.8 ng/mL (3.0-16.0)
[2021-03-31 19:21] LABS: Vitamin B12 > 1500 pg/mL (250-1100)
[2021-03-31] MEDS: Acetaminophen 325 MG TABLET PO PRN (20:39)
[2021-03-31] MEDS: Sennosides/Docusate Sodium TABLET PO SCH (20:40)
[2021-04-01 02:36] LABS: Basophils % 0.3 %
[2021-04-01 02:38] LABS: Eosinophils # 0.1 K/mcL (0.0-0.6); Eosinophils % 1.5 %; Hematocrit 23.7 % (37.5-50.1); Hemoglobin 7.1 g/dL (12.9-16.9); Immature Granulocytes % 0.9 % (0-4); Immature Platelets 2.1 % (1.1-6.1); Lymphocytes # 0.4 K/mcL (0.6-4.6); Lymphocytes % 5.2 %; Mean Corpuscular Hemoglobin 28.7 pg (28.0-33.3); Monocytes # 0.6 K/mcL (0.0-1.3); Monocytes % 8.7 %; Neutrophils # 5.6 K/mcL (1.6-8.9); Platelet Count 109 K/mcL (140-400); Red Blood Count 2.47 M/mcL (4.19-5.50); Red Cell Distribution Width 14.8 % (11.5-14.5); Segmented Neutrophils % 83.4 %; White Blood Count 6.7 K/mcL (4.3-11.1)
[2021-04-01 02:48] LABS: BUN/Creatinine Ratio 19 (6-26); Blood Urea Nitrogen 20 mg/dL (6-20); Calcium 8.9 mg/dL (8.6-10.3); Carbon Dioxide 35 mEq/L (23-29); Chloride 94 mEq/L (98-107); Glucose 118 mg/dL (70-105); Osmolality,Calculated 288 (280-300); Potassium 3.8 mEq/L (3.5-5.1); Sodium 137 mEq/L (136-145); eGFR For African Americans > 60 (> 60); eGFR For Non-African Americans > 60 (> 60)
[2021-04-01] MEDS ORDERED: polyethylene glycoL 3350 17 GM POWD.PACK PO PRN (07:51)
[2021-04-01] MEDS: Tiotropium 10 INH DOSE IH SCH (08:12)
[2021-04-01] MEDS: Budesonide/Formoterol 160/4.5 1 PUFF INH IH SCH ×2 (08:12→21:25)
[2021-04-01] MEDS: Levalbuterol Neb 1.25 MG/3 ML IH PRN ×2 (08:16→15:24)
[2021-04-01] MEDS: Insulin LISPRO 300 UNITS/3 ML VIAL SUBQ SCH ×2 (08:53→12:37)
[2021-04-01] MEDS: Furosemide 40 MG TABLET PO SCH (08:54)
[2021-04-01] MEDS: *HR* OxyCODONE Immed Rel 5 MG TABLET PO PRN (08:54)
[2021-04-01] MEDS: Sennosides/Docusate Sodium TABLET PO SCH ×2 (08:54→20:41)
[2021-04-01] MEDS: Zinc Gluconate 100 MG Tablet PO SCH (08:56)
[2021-04-01] MEDS: *HR* LORazepam 1 MG TABLET PO PRN (09:00)
[2021-04-01] MEDS ORDERED: *HR* HYDROcodone/Acet 5/325 mg TABLET PO PRN (11:11)
[2021-04-01] MEDS: *HR* OxyCODONE Immed Rel 15 MG TABLET PO SCH ×2 (15:58→20:40)
[2021-04-01] MEDS: *HR* LORazepam 1 MG TABLET PO SCH ×2 (15:58→20:41)
[2021-04-01] MEDS ORDERED: *HR* Warfarin 2.5 MG TABLET PO ONE (18:00)
[2021-04-02] MEDS: *HR* OxyCODONE Immed Rel 15 MG TABLET PO SCH ×6 (01:05→21:08)
[2021-04-02 05:08] LABS: Basophils % 0.5 %; Eosinophils # 0.1 K/mcL (0.0-0.6); Eosinophils % 1.8 %; Hematocrit 22.8 % (37.5-50.1); Hemoglobin 7.1 g/dL (12.9-16.9); Immature Granulocytes % 0.6 % (0-4); Lymphocytes # 0.3 K/mcL (0.6-4.6); Lymphocytes % 4.1 %; Mean Corpuscular HGB Conc 31.1 g/dL (31.6-35.5); Mean Corpuscular Hemoglobin 29.8 pg (28.0-33.3); Mean Corpuscular Volume 95.8 fL (83.0-100.0); Mean Platelet Volume 9.5 fL (9.4-12.4); Monocytes # 0.7 K/mcL (0.0-1.3); Neutrophils # 5.4 K/mcL (1.6-8.9); Nucleated Red Blood Cells 0.3 /100 WBC (0); Platelet Count 104 K/mcL (140-400); Red Blood Count 2.38 M/mcL (4.19-5.50); Red Cell Distribution Width 14.8 % (11.5-14.5); White Blood Count 6.5 K/mcL (4.3-11.1)
[2021-04-02 05:24] LABS: INR 1.3; Prothrombin Time 14.6 Seconds (9.4-12.1)
[2021-04-02 05:27] LABS: BUN/Creatinine Ratio 15 (6-26); Blood Urea Nitrogen 15 mg/dL (6-20); Carbon Dioxide 37 mEq/L (23-29); Chloride 96 mEq/L (98-107); Glucose 118 mg/dL (70-105); Osmolality,Calculated 290 (280-300); Potassium 3.5 mEq/L (3.5-5.1); Sodium 139 mEq/L (136-145); eGFR For African Americans > 60 (> 60); eGFR For Non-African Americans > 60 (> 60)
[2021-04-02] MEDS: Sennosides/Docusate Sodium TABLET PO SCH ×2 (07:32→21:08)
[2021-04-02] MEDS: *HR* LORazepam 1 MG TABLET PO SCH ×3 (07:32→21:08)
[2021-04-02] MEDS: Furosemide 40 MG TABLET PO SCH (07:32)
[2021-04-02] MEDS: Valsartan 160 MG TABLET PO SCH (07:38)
[2021-04-02] MEDS: hydroCHLOROthiazide 25 MG TABLET PO SCH (07:38)
[2021-04-02] MEDS: Budesonide/Formoterol 160/4.5 1 PUFF INH IH SCH ×2 (07:38→20:34)
[2021-04-02] MEDS: Cholecalciferol (D-3) 1,000 UNIT (25MCG) TABLET PO SCH (07:38)
[2021-04-02] MEDS: Tiotropium 10 INH DOSE IH SCH (07:39)
[2021-04-02] MEDS: Zinc Gluconate 100 MG Tablet PO SCH (07:39)
[2021-04-02] MEDS: Levalbuterol Neb 1.25 MG/3 ML IH PRN (07:42)
[2021-04-02] MEDS ORDERED: Sulfamethoxazole/Trimeth DS 1 EACH TABLET PO SCH (09:00)
[2021-04-02] MEDS ORDERED: Patient Taking Own Medication 1 EACH PO SCH (09:00)
[2021-04-02] MEDS: Acetaminophen 325 MG TABLET PO PRN (13:06)
[2021-04-02] MEDS ORDERED: *HR* Warfarin 5 MG TABLET PO ONE (18:00)
[2021-04-02 18:34] LABS: Hematocrit 23.8 % (37.5-50.1); Hemoglobin 7.3 g/dL (12.9-16.9)
[2021-04-02 18:59] LABS: Albumin 3.6 g/dL (3.5-5.7); Albumin/Globulin Ratio 1.3 (1.1-2.2); Bilirubin,Direct 0.2 mg/dL (0.0-0.2); Bilirubin,Indirect 0.3 mg/dL (0.0-1.0); Bilirubin,Total 0.5 mg/dL (0.3-1.0); Calcium 9.4 mg/dL (8.6-10.3); Globulin 2.8 g/dL (2.4-3.5); Potassium 3.8 mEq/L (3.5-5.1); Total Protein 6.4 g/dL (6.4-8.9)
[2021-04-03] MEDS: *HR* OxyCODONE Immed Rel 15 MG TABLET PO SCH ×7 (00:26→21:24)
[2021-04-03 03:07] LABS: Basophils % 0.3 %; Eosinophils # 0.2 K/mcL (0.0-0.6); Eosinophils % 2.3 %; Hematocrit 24.1 % (37.5-50.1); Hemoglobin 7.4 g/dL (12.9-16.9); Immature Granulocytes % 0.6 % (0-4); Lymphocytes # 0.5 K/mcL (0.6-4.6); Lymphocytes % 6.9 %; Mean Corpuscular HGB Conc 30.7 g/dL (31.6-35.5); Mean Corpuscular Hemoglobin 29.6 pg (28.0-33.3); Mean Corpuscular Volume 96.4 fL (83.0-100.0); Mean Platelet Volume 9.2 fL (9.4-12.4); Monocytes # 0.6 K/mcL (0.0-1.3); Monocytes % 7.7 %; Platelet Count 122 K/mcL (140-400); Segmented Neutrophils % 82.2 %; White Blood Count 7.3 K/mcL (4.3-11.1)
[2021-04-03 03:12] LABS: INR 1.3; Prothrombin Time 14.3 Seconds (9.4-12.1)
[2021-04-03 03:19] LABS: Calcium 9.3 mg/dL (8.6-10.3); Potassium 3.7 mEq/L (3.5-5.1)
[2021-04-03] MEDS: Furosemide 40 MG TABLET PO SCH (07:37)
[2021-04-03] MEDS: hydroCHLOROthiazide 25 MG TABLET PO SCH (07:37)
[2021-04-03] MEDS: Cholecalciferol (D-3) 1,000 UNIT (25MCG) TABLET PO SCH (07:37)
[2021-04-03] MEDS: Valsartan 160 MG TABLET PO SCH (07:38)
[2021-04-03] MEDS: *HR* LORazepam 1 MG TABLET PO SCH ×3 (07:38→21:24)
[2021-04-03] MEDS: Sennosides/Docusate Sodium TABLET PO SCH ×2 (07:38→21:25)
[2021-04-03] MEDS: Budesonide/Formoterol 160/4.5 1 PUFF INH IH SCH ×2 (07:57→20:44)
[2021-04-03] MEDS ORDERED: Isovue-370 500 ML BOTTLE IVP ONE ×2 (09:14)
[2021-04-03 11:55] LABS: % Iron Saturation 5 % (20-55); Transferrin 189 mg/dL (200-400)
[2021-04-03] MEDS ORDERED: *HR* LORazepam 2 MG/ML VIAL IVP ONE (15:01)
[2021-04-03] MEDS: 0.9 % Sodium Chloride 1,000 ML IVC SCH (15:13)
[2021-04-03] MEDS ORDERED: *HR* Warfarin 5 MG TABLET PO ONE (18:00)
[2021-04-03] MEDS: Tiotropium 10 INH DOSE IH SCH (19:00)
[2021-04-03 20:37] LABS: ABG Base Excess 4 mEq/L (-2 to 3); ABG HCO3 32 mEq/L (21-27); ABG Oxygen Saturation 98 % (95-98); ABG PCO2 74 mmHg (35-45); ABG PH 7.25 pH Units (7.32-7.45); ABG PO2 132 mmHg (85-104); ABG TCO2 35 mEq/L (20-26); Blood Gas Modality 5 LPM
[2021-04-04] MEDS: 0.9 % Sodium Chloride 1,000 ML IVC SCH ×2 (00:19→09:41)
[2021-04-04] MEDS: *HR* OxyCODONE Immed Rel 15 MG TABLET PO SCH ×7 (00:21→20:30)
[2021-04-04 00:52] LABS: ABG Base Excess 3 mEq/L (-2 to 3); ABG HCO3 30 mEq/L (21-27); ABG Oxygen Saturation 91 % (95-98); ABG PCO2 57 mmHg (35-45); ABG PH 7.32 pH Units (7.32-7.45); ABG PO2 68 mmHg (85-104); ABG TCO2 31 mEq/L (20-26); Blood Gas Modality NIV
[2021-04-04 01:52] LABS: Bacteria,Urine Many per hpf (None-Few); Bilirubin,Urine Negative (Negative); Blood,Urine Moderate (Negative); Budding Yeast,Urine Few per hpf (None Seen); Clarity,Urine Ex.Turbid (Clear); Color,Urine Yellow (Yellow); Glucose,Urine (UA) 30 mg/dL (Normal); Hyaline Casts,Urine Few per lpf (None Seen); Ketones,Urine Negative (Negative); Leukocyte Esterase,Urine Trace (Negative); Mucus,Urine Few per lpf (None-Few); Nitrite,Urine Negative (Negative); PH,Urine 5.5 pH Units (5.0-8.0); Protein,Urine >=300 mg/dL (Neg-Trace); RBC,Urine 15-30 per hpf (0-3); Squamous Epithelial Cell,Urine Few per hpf (None-Few); WBC,Urine 30-50 per hpf (0-3)
[2021-04-04 04:30] LABS: Basophils % 0.3 %; Eosinophils # 0.1 K/mcL (0.0-0.6); Eosinophils % 0.5 %; Hemoglobin 6.9 g/dL (12.9-16.9); Immature Granulocytes % 0.5 % (0-4); Lymphocytes # 0.3 K/mcL (0.6-4.6); Lymphocytes % 2.8 %; Mean Corpuscular Hemoglobin 29.2 pg (28.0-33.3); Mean Corpuscular Volume 97.5 fL (83.0-100.0); Mean Platelet Volume 9.3 fL (9.4-12.4); Monocytes # 0.9 K/mcL (0.0-1.3); Monocytes % 7.3 %; Neutrophils # 10.3 K/mcL (1.6-8.9); Platelet Count 130 K/mcL (140-400); Red Blood Count 2.36 M/mcL (4.19-5.50); Red Cell Distribution Width 15.2 % (11.5-14.5); Segmented Neutrophils % 88.6 %; White Blood Count 11.6 K/mcL (4.3-11.1)
[2021-04-04 04:35] LABS: INR 1.4; Prothrombin Time 15.9 Seconds (9.4-12.1)
[2021-04-04 04:38] LABS: Calcium 9.3 mg/dL (8.6-10.3); Potassium 4.4 mEq/L (3.5-5.1)
[2021-04-04 09:24] LABS: Hepatitis B Surface Antibody < 3.10 mIU/mL
[2021-04-04 09:35] LABS: Hepatitis B Surface Antigen Nonreactive (Nonreactive)
[2021-04-04] MEDS: cefTRIAXone 2,000 MG in 0.9 % Sodium Chloride Mini Bag 100 ML IVPB SCH (09:35)
[2021-04-04] MEDS: Sennosides/Docusate Sodium TABLET PO SCH ×2 (09:36→22:42)
[2021-04-04] MEDS: *HR* LORazepam 1 MG TABLET PO SCH ×3 (09:36→20:31)
[2021-04-04] MEDS: Cholecalciferol (D-3) 1,000 UNIT (25MCG) TABLET PO SCH (09:36)
[2021-04-04] MEDS ORDERED: 0.9 % Sodium Chloride 250 ML ONE (10:20)
[2021-04-04] MEDS: Budesonide/Formoterol 160/4.5 1 PUFF INH IH SCH ×2 (10:23→20:07)
[2021-04-04 11:25] LABS: Protein/Creatinine Ratio,Urine 0.86 mg/mg (0.00-0.20); Sodium, Urine 39.8 mEq/L
[2021-04-04 11:37] LABS: Amorphous Sediment,Urine Few per hpf (None-Few); Bacteria,Urine Few per hpf (None-Few); Bilirubin,Urine Negative (Negative); Blood,Urine Moderate (Negative); Clarity,Urine Turbid (Clear); Color,Urine Yellow (Yellow); Glucose,Urine (UA) Normal (Normal); Granular Casts,Urine Moderate per lpf (None Seen); Hyaline Casts,Urine Many per lpf (None Seen); Ketones,Urine Negative (Negative); Leukocyte Esterase,Urine Negative (Negative); Mucus,Urine Moderate per lpf (None-Few); Nitrite,Urine Negative (Negative); PH,Urine 5.5 pH Units (5.0-8.0); Protein,Urine 100 mg/dL (Neg-Trace); Renal Epithelial Cells,Urine Few per hpf (None-Few); Specific Gravity,Urine 1.019 (1.010-1.025); Squamous Epithelial Cell,Urine Few per hpf (None-Few); Transitional Epi Cells,Urine Few per hpf (None-Few); Urobilinogen,Urine Normal (Normal); WBC,Urine 15-30 per hpf (0-3); Waxy Casts,Urine Moderate per lpf (None Seen)
[2021-04-04 17:29] LABS: Hematocrit 27.3 % (37.5-50.1); Hemoglobin 8.1 g/dL (12.9-16.9)
[2021-04-04] MEDS ORDERED: *HR* Warfarin 5 MG TABLET PO ONE (18:00)
[2021-04-04 18:05] LABS: ABG Base Excess 3 mEq/L (-2 to 3); ABG HCO3 29 mEq/L (21-27); ABG Oxygen Saturation 92 % (95-98); ABG PCO2 53 mmHg (35-45); ABG PH 7.35 pH Units (7.32-7.45); ABG PO2 68 mmHg (85-104); ABG TCO2 31 mEq/L (20-26)
[2021-04-04 19:02] LABS: Albumin 3.4 g/dL (3.5-5.7); Albumin/Globulin Ratio 1.1 (1.1-2.2); Bilirubin,Direct 0.1 mg/dL (0.0-0.2); Bilirubin,Indirect 0.2 mg/dL (0.0-1.0); Bilirubin,Total 0.3 mg/dL (0.3-1.0); Globulin 3.2 g/dL (2.4-3.5); Phosphorous 6.7 mg/dL (2.7-4.5); Potassium 4.7 mEq/L (3.5-5.1); Total Protein 6.6 g/dL (6.4-8.9); Uric Acid 12.1 mg/dL (2.3-7.6)
[2021-04-04 19:04] LABS: Rheumatoid Factor 11 IU/mL (Less than 14)
[2021-04-04 19:07] LABS: Complement C3 157 mg/dL (87-200)
[2021-04-04] MEDS: *HR* HYDROmorphone 2 MG/ML SYRINGE SQ SCH ×2 (19:28→22:43)
[2021-04-04] MEDS ORDERED: Acetaminophen IV 1,000 MG/100 ML BAG IVPB ONE (19:49)
[2021-04-04] MEDS: Tiotropium 10 INH DOSE IH SCH (20:07)
[2021-04-04] MEDS: polyethylene glycoL 3350 17 GM POWD.PACK PO SCH (20:32)
[2021-04-05] MEDS: 0.9 % Sodium Chloride 1,000 ML IVC SCH ×3 (00:04→20:09)
[2021-04-05] MEDS: *HR* OxyCODONE Immed Rel 15 MG TABLET PO SCH ×4 (00:06→12:23)
[2021-04-05] MEDS: *HR* HYDROmorphone 2 MG/ML SYRINGE SQ SCH ×4 (02:35→13:18)
[2021-04-05 05:10] LABS: Basophils % 0.1 %; Eosinophils % 0.3 %; Hematocrit 24.8 % (37.5-50.1); Hemoglobin 7.5 g/dL (12.9-16.9); Immature Granulocytes % 0.8 % (0-4); Lymphocytes # 0.2 K/mcL (0.6-4.6); Lymphocytes % 1.7 %; Mean Corpuscular HGB Conc 30.2 g/dL (31.6-35.5); Mean Corpuscular Hemoglobin 28.8 pg (28.0-33.3); Mean Corpuscular Volume 95.4 fL (83.0-100.0); Mean Platelet Volume 9.5 fL (9.4-12.4); Monocytes % 8.8 %; Neutrophils # 10.5 K/mcL (1.6-8.9); Platelet Count 128 K/mcL (140-400); Red Cell Distribution Width 15.1 % (11.5-14.5); Segmented Neutrophils % 88.3 %; White Blood Count 11.9 K/mcL (4.3-11.1)
[2021-04-05 05:14] LABS: INR 1.7; Prothrombin Time 19.2 Seconds (9.4-12.1)
[2021-04-05 05:30] LABS: Calcium 8.9 mg/dL (8.6-10.3); Potassium 4.5 mEq/L (3.5-5.1)
[2021-04-05] MEDS: cefTRIAXone 2,000 MG in 0.9 % Sodium Chloride Mini Bag 100 ML IVPB SCH (07:53)
[2021-04-05] MEDS: polyethylene glycoL 3350 17 GM POWD.PACK PO SCH ×2 (07:55→20:19)
[2021-04-05] MEDS: *HR* LORazepam 1 MG TABLET PO SCH (07:55)
[2021-04-05] MEDS: Cholecalciferol (D-3) 1,000 UNIT (25MCG) TABLET PO SCH (07:56)
[2021-04-05] MEDS: Sennosides/Docusate Sodium TABLET PO SCH ×2 (07:56→20:20)
[2021-04-05] MEDS: Budesonide/Formoterol 160/4.5 1 PUFF INH IH SCH ×2 (08:17→20:42)
[2021-04-05] MEDS: *HR* LORazepam 1 MG TABLET SL SCH ×2 (15:03→20:17)
[2021-04-05] MEDS: Tiotropium 10 INH DOSE IH SCH (15:59)
[2021-04-05] MEDS ORDERED: *HR* Warfarin 2.5 MG TABLET PO ONE (18:00)
[2021-04-05] MEDS ORDERED: *HR* Metoprolol 5 MG/5 ML VIAL IVP ONE ×2 (22:08→23:38)
[2021-04-06] MEDS: *HR* HYDROmorphone 2 MG/ML SYRINGE IVP PRN ×3 (01:09→21:36)
[2021-04-06] MEDS: 0.9 % Sodium Chloride 1,000 ML IVC SCH ×2 (05:45→16:42)
[2021-04-06 06:04] LABS: Basophils % 0.3 %; Eosinophils # 0.1 K/mcL (0.0-0.6); Eosinophils % 1.5 %; Hematocrit 24.2 % (37.5-50.1); Hemoglobin 7.3 g/dL (12.9-16.9); Immature Granulocytes % 0.6 % (0-4); Lymphocytes # 0.3 K/mcL (0.6-4.6); Lymphocytes % 3.2 %; Mean Corpuscular HGB Conc 30.2 g/dL (31.6-35.5); Mean Platelet Volume 9.4 fL (9.4-12.4); Monocytes # 0.9 K/mcL (0.0-1.3); Monocytes % 10.3 %; Neutrophils # 7.3 K/mcL (1.6-8.9); Platelet Count 146 K/mcL (140-400); Red Blood Count 2.52 M/mcL (4.19-5.50); Red Cell Distribution Width 14.9 % (11.5-14.5); Segmented Neutrophils % 84.1 %; White Blood Count 8.6 K/mcL (4.3-11.1)
[2021-04-06 06:18] LABS: INR 1.9; Prothrombin Time 21.1 Seconds (9.4-12.1)
[2021-04-06 06:23] LABS: Calcium 9.3 mg/dL (8.6-10.3); Potassium 3.9 mEq/L (3.5-5.1)
[2021-04-06] MEDS: polyethylene glycoL 3350 17 GM POWD.PACK PO SCH ×2 (06:55→21:34)
[2021-04-06] MEDS: Sennosides/Docusate Sodium TABLET PO SCH ×2 (06:55→21:34)
[2021-04-06] MEDS: Cholecalciferol (D-3) 1,000 UNIT (25MCG) TABLET PO SCH (06:56)
[2021-04-06] MEDS: Budesonide/Formoterol 160/4.5 1 PUFF INH IH SCH ×2 (08:08→22:01)
[2021-04-06] MEDS: *HR* LORazepam 1 MG TABLET SL SCH ×3 (08:20→21:26)
[2021-04-06] MEDS ORDERED: 0.9 % Sodium Chloride 500 ML IVC ONE (08:33)
[2021-04-06] MEDS ORDERED: *HR* Metoprolol 5 MG/5 ML VIAL IVP PRN (08:41)
[2021-04-06] MEDS: cefTRIAXone 2,000 MG in 0.9 % Sodium Chloride Mini Bag 100 ML IVPB SCH (09:39)
[2021-04-06] MEDS ORDERED: *HR* Digoxin 0.125 MG TABLET PO SCH (11:15)
[2021-04-06] MEDS ORDERED: *HR* HYDROmorphone (PF) 1 MG/ML SYRINGE IVP STA (11:31)
[2021-04-06] MEDS ORDERED: *HR* Digoxin 0.5 MG/2 ML AMPUL IVP SCH (12:00)
[2021-04-06] MEDS: *HR* Metoprolol 5 MG/5 ML VIAL IVP SCH ×3 (14:29→21:37)
[2021-04-06] MEDS: Tiotropium 10 INH DOSE IH SCH (16:38)
[2021-04-06] MEDS: *HR* Digoxin 0.5 MG/2 ML AMPUL IVP SCH (17:29)
[2021-04-06] MEDS ORDERED: *HR* Warfarin 5 MG TABLET PO ONE (18:00)
[2021-04-06] MEDS: Bisacodyl 10 MG RECTAL SUPPOSITORY RC SCH (22:03)
[2021-04-07] MEDS: *HR* Digoxin 0.5 MG/2 ML AMPUL IVP SCH ×2 (00:03→06:11)
[2021-04-07] MEDS: *HR* Metoprolol 5 MG/5 ML VIAL IVP SCH ×6 (01:09→20:18)
[2021-04-07] MEDS: *HR* HYDROmorphone 2 MG/ML SYRINGE IVP PRN ×6 (03:03→20:03)
[2021-04-07] MEDS ORDERED: *HR* LORazepam 2 MG/ML VIAL IVP ONE (05:10)
[2021-04-07] MEDS: Budesonide/Formoterol 160/4.5 1 PUFF INH IH SCH ×2 (07:34→20:30)
[2021-04-07] MEDS: *HR* LORazepam 1 MG TABLET SL SCH (07:57)
[2021-04-07] MEDS: polyethylene glycoL 3350 17 GM POWD.PACK PO SCH ×2 (07:58→20:10)
[2021-04-07] MEDS: Cholecalciferol (D-3) 1,000 UNIT (25MCG) TABLET PO SCH (07:59)
[2021-04-07] MEDS: Sennosides/Docusate Sodium TABLET PO SCH ×2 (07:59→20:12)
[2021-04-07] MEDS: 0.9 % Sodium Chloride 1,000 ML IVC SCH ×3 (08:22→22:48)
[2021-04-07] MEDS ORDERED: *HR* FentaNYL PATCH 50 MCG PATCH TD SCH (10:45)
[2021-04-07] MEDS: Haloperidol Lactate 5 MG/ML VIAL IVP PRN ×3 (11:09→20:18)
[2021-04-07] MEDS: Tiotropium 10 INH DOSE IH SCH (15:48)
[2021-04-07] MEDS: *HR* LORazepam Oral Conc 2 MG/ML PO PRN ×2 (18:39→22:47)
[2021-04-07] MEDS: Bisacodyl 10 MG RECTAL SUPPOSITORY RC SCH (20:10)
[2021-04-08] MEDS: *HR* HYDROmorphone 2 MG/ML SYRINGE IVP PRN ×9 (00:11→23:51)
[2021-04-08] MEDS: Haloperidol Lactate 5 MG/ML VIAL IVP PRN ×5 (00:18→23:50)
[2021-04-08] MEDS: *HR* Metoprolol 5 MG/5 ML VIAL IVP SCH ×6 (00:35→20:54)
[2021-04-08 06:13] LABS: INR 2.5; Prothrombin Time 27.8 Seconds (9.4-12.1)
[2021-04-08 06:34] LABS: BUN/Creatinine Ratio 27 (6-26); Blood Urea Nitrogen 25 mg/dL (6-20); Calcium 10.1 mg/dL (8.6-10.3); Carbon Dioxide 30 mEq/L (23-29); Chloride 121 mEq/L (98-107); Glucose 102 mg/dL (70-105); Osmolality,Calculated 335 (280-300); Potassium 3.9 mEq/L (3.5-5.1); Sodium 160 mEq/L (136-145); eGFR For African Americans > 60 (> 60); eGFR For Non-African Americans > 60 (> 60)
[2021-04-08 06:49] LABS: Eosinophils # 0.1 K/mcL (0.0-0.6); Hematocrit 28.3 % (37.5-50.1); Hemoglobin 8.3 g/dL (12.9-16.9); Mean Corpuscular HGB Conc 29.3 g/dL (31.6-35.5); Mean Corpuscular Hemoglobin 29.4 pg (28.0-33.3); Mean Corpuscular Volume 100.4 fL (83.0-100.0); Mean Platelet Volume 9.6 fL (9.4-12.4); Platelet Count 120 K/mcL (140-400); Red Blood Count 2.82 M/mcL (4.19-5.50); Red Cell Distribution Width 15.1 % (11.5-14.5); White Blood Count 6.5 K/mcL (4.3-11.1)
[2021-04-08 07:20] LABS: Anisocytosis 1+ (Not Present); Lymphocytes # 0.5 K/mcL (0.6-4.6); Neutrophils # 5.9 K/mcL (1.6-8.9)
[2021-04-08] MEDS: *HR* LORazepam Oral Conc 2 MG/ML PO PRN ×3 (08:20→20:54)
[2021-04-08] MEDS: Sennosides/Docusate Sodium TABLET PO SCH ×2 (08:23→20:04)
[2021-04-08] MEDS: polyethylene glycoL 3350 17 GM POWD.PACK PO SCH ×2 (08:23→20:03)
[2021-04-08] MEDS: Cholecalciferol (D-3) 1,000 UNIT (25MCG) TABLET PO SCH (08:23)
[2021-04-08] MEDS: Budesonide/Formoterol 160/4.5 1 PUFF INH IH SCH ×2 (08:24→21:11)
[2021-04-08] MEDS ORDERED: D5% in Water 1,000 ML IVC SCH (11:15)
[2021-04-08 12:39] LABS: BUN/Creatinine Ratio 25 (6-26); Blood Urea Nitrogen 23 mg/dL (6-20); Carbon Dioxide 34 mEq/L (23-29); Chloride 121 mEq/L (98-107); Glucose 114 mg/dL (70-105); Osmolality,Calculated 337 (280-300); Potassium 3.8 mEq/L (3.5-5.1); Sodium 161 mEq/L (136-145); eGFR For African Americans > 60 (> 60); eGFR For Non-African Americans > 60 (> 60)
[2021-04-08] MEDS: *HR* Heparin 5,000 UNIT/ML VIAL SQ SCH ×2 (13:16→20:04)
[2021-04-08] MEDS: D5% in Water 1,000 ML IVC SCH ×2 (13:17→21:04)
[2021-04-08] MEDS: Tiotropium 10 INH DOSE IH SCH (16:05)
[2021-04-08 16:21] LABS: BUN/Creatinine Ratio 25 (6-26); Blood Urea Nitrogen 25 mg/dL (6-20); Carbon Dioxide 34 mEq/L (23-29); Chloride 120 mEq/L (98-107); Glucose 134 mg/dL (70-105); Osmolality,Calculated 336 (280-300); Sodium 160 mEq/L (136-145); eGFR For African Americans > 60 (> 60); eGFR For Non-African Americans > 60 (> 60)
[2021-04-08] MEDS ORDERED: Albumin 25% 25gram/100mL 25 GM/100 ML IV.SOLN IVPB ONE (17:29)
[2021-04-08] MEDS ORDERED: Furosemide 20 MG/2 ML VIAL IVP ONE ×2 (19:00→21:00)
[2021-04-08] MEDS: Bisacodyl 10 MG RECTAL SUPPOSITORY RC SCH (20:03)
[2021-04-08 20:22] LABS: BUN/Creatinine Ratio 26 (6-26); Blood Urea Nitrogen 26 mg/dL (6-20); Calcium 10.3 mg/dL (8.6-10.3); Carbon Dioxide 34 mEq/L (23-29); Chloride 119 mEq/L (98-107); Glucose 141 mg/dL (70-105); Osmolality,Calculated 337 (280-300); Potassium 3.8 mEq/L (3.5-5.1); Sodium 160 mEq/L (136-145); eGFR For African Americans > 60 (> 60); eGFR For Non-African Americans > 60 (> 60)
[2021-04-09] MEDS: *HR* LORazepam Oral Conc 2 MG/ML PO PRN ×3 (00:53→19:36)
[2021-04-09] MEDS: *HR* Metoprolol 5 MG/5 ML VIAL IVP SCH ×6 (00:53→20:57)
[2021-04-09] MEDS: *HR* HYDROmorphone 2 MG/ML SYRINGE IVP PRN ×7 (02:19→23:11)
[2021-04-09] MEDS: D5% in Water 1,000 ML IVC SCH ×3 (04:42→19:49)
[2021-04-09] MEDS: Haloperidol Lactate 5 MG/ML VIAL IVP PRN ×2 (04:42→20:50)
[2021-04-09] MEDS: *HR* Heparin 5,000 UNIT/ML VIAL SQ SCH ×3 (04:43→23:15)
[2021-04-09 06:06] LABS: Basophils % 0.4 %; Eosinophils # 0.2 K/mcL (0.0-0.6); Eosinophils % 3.3 %; Hematocrit 26.9 % (37.5-50.1); Hemoglobin 7.7 g/dL (12.9-16.9); Lymphocytes # 0.3 K/mcL (0.6-4.6); Lymphocytes % 6.5 %; Mean Corpuscular HGB Conc 28.6 g/dL (31.6-35.5); Mean Corpuscular Hemoglobin 29.2 pg (28.0-33.3); Mean Corpuscular Volume 101.9 fL (83.0-100.0); Mean Platelet Volume 9.9 fL (9.4-12.4); Monocytes # 0.4 K/mcL (0.0-1.3); Monocytes % 7.1 %; Neutrophils # 4.3 K/mcL (1.6-8.9); Platelet Count 123 K/mcL (140-400); Red Blood Count 2.64 M/mcL (4.19-5.50); Red Cell Distribution Width 15.3 % (11.5-14.5); Segmented Neutrophils % 81.7 %; White Blood Count 5.2 K/mcL (4.3-11.1)
[2021-04-09 06:10] LABS: BUN/Creatinine Ratio 25 (6-26); Blood Urea Nitrogen 25 mg/dL (6-20); Calcium 10.1 mg/dL (8.6-10.3); Carbon Dioxide 35 mEq/L (23-29); Chloride 118 mEq/L (98-107); Glucose 139 mg/dL (70-105); Osmolality,Calculated 333 (280-300); Potassium 3.6 mEq/L (3.5-5.1); Sodium 158 mEq/L (136-145); eGFR For African Americans > 60 (> 60); eGFR For Non-African Americans > 60 (> 60)
[2021-04-09 06:41] LABS: Anisocytosis 1+ (Not Present)
[2021-04-09 06:42] LABS: Hypochromasia Present (Not Present); Platelet Estimate Slight Decrease (Normal)
[2021-04-09 06:54] LABS: ANA IgG by ELISA NONE DETECTED (None Detected)
[2021-04-09 07:08] LABS: Serine Protease-3 Antibody 2 AU/mL (0-19)
[2021-04-09] MEDS: polyethylene glycoL 3350 17 GM POWD.PACK PO SCH ×2 (08:05→19:50)
[2021-04-09] MEDS: Cholecalciferol (D-3) 1,000 UNIT (25MCG) TABLET PO SCH (08:06)
[2021-04-09] MEDS: Sennosides/Docusate Sodium TABLET PO SCH ×2 (08:06→21:02)
[2021-04-09] MEDS: Budesonide/Formoterol 160/4.5 1 PUFF INH IH SCH ×2 (10:48→21:12)
[2021-04-09] MEDS ORDERED: *HR* FentaNYL PATCH 100 MCG PATCH TD SCH (11:09)
[2021-04-09] MEDS: Lactulose Oral Soln 20 GM/30 ML UDC PO SCH (20:44)
[2021-04-09] MEDS: Levalbuterol Neb 1.25 MG/3 ML IH PRN (21:12)
[2021-04-09] MEDS: Bisacodyl 10 MG RECTAL SUPPOSITORY RC SCH (21:20)
[2021-04-09] MEDS ORDERED: Tiotropium 10 INH DOSE IH SCH (22:00)
[2021-04-10] MEDS: *HR* Metoprolol 5 MG/5 ML VIAL IVP SCH ×6 (01:18→21:58)
[2021-04-10] MEDS: *HR* HYDROmorphone 2 MG/ML SYRINGE IVP PRN ×5 (02:27→17:34)
[2021-04-10] MEDS: Haloperidol Lactate 5 MG/ML VIAL IVP PRN ×2 (02:35→07:29)
[2021-04-10 03:35] LABS: Nucleated Red Blood Cells 0.3 /100 WBC (0)
[2021-04-10 03:37] LABS: Hematocrit 28.6 % (37.5-50.1); Hemoglobin 8.2 g/dL (12.9-16.9); Mean Corpuscular HGB Conc 28.7 g/dL (31.6-35.5); Mean Corpuscular Hemoglobin 29.2 pg (28.0-33.3); Mean Corpuscular Volume 101.8 fL (83.0-100.0); Mean Platelet Volume 10.1 fL (9.4-12.4); Platelet Count 130 K/mcL (140-400); Red Blood Count 2.81 M/mcL (4.19-5.50); Red Cell Distribution Width 15.2 % (11.5-14.5); White Blood Count 6.5 K/mcL (4.3-11.1)
[2021-04-10 03:48] LABS: Prothrombin Time 32.7 Seconds (9.4-12.1)
[2021-04-10 04:44] LABS: Eosinophils # 0.5 K/mcL (0.0-0.6); Lymphocytes # 0.7 K/mcL (0.6-4.6); Monocytes # 0.4 K/mcL (0.0-1.3); Platelet Estimate Slight Decrease (Normal); Reactive Lymphocytes Present (Not Present)
[2021-04-10] MEDS: *HR* LORazepam Oral Conc 2 MG/ML PO PRN ×4 (04:47→22:02)
[2021-04-10] MEDS: D5% in Water 1,000 ML IVC SCH ×2 (05:47→12:17)
[2021-04-10] MEDS: Levalbuterol Neb 1.25 MG/3 ML IH PRN (06:08)
[2021-04-10] MEDS: *HR* Heparin 5,000 UNIT/ML VIAL SQ SCH ×3 (06:55→21:58)
[2021-04-10] MEDS: Sennosides/Docusate Sodium TABLET PO SCH ×2 (07:36→19:16)
[2021-04-10] MEDS: Lactulose Oral Soln 20 GM/30 ML UDC PO SCH (07:36)
[2021-04-10] MEDS: polyethylene glycoL 3350 17 GM POWD.PACK PO SCH (07:36)
[2021-04-10] MEDS: Cholecalciferol (D-3) 1,000 UNIT (25MCG) TABLET PO SCH (07:37)
[2021-04-10] MEDS: Budesonide/Formoterol 160/4.5 1 PUFF INH IH SCH ×2 (08:15→20:53)
[2021-04-10] MEDS ORDERED: D5% in Water 1,000 ML IVC SCH (11:45)
[2021-04-10] MEDS ORDERED: Scopolamine Patch 1.5 MG PATCH.TD72 TD SCH (15:30)
[2021-04-10] MEDS: 0.9 % Sodium Chloride 1,000 ML IVC SCH (19:14)
[2021-04-10] MEDS: Bisacodyl 10 MG RECTAL SUPPOSITORY RC SCH (21:05)
[2021-04-11] MEDS: *HR* Metoprolol 5 MG/5 ML VIAL IVP SCH ×5 (00:34→16:20)
[2021-04-11] MEDS: *HR* HYDROmorphone 2 MG/ML SYRINGE IVP PRN ×4 (00:34→09:08)
[2021-04-11] MEDS: *HR* LORazepam Oral Conc 2 MG/ML PO PRN ×2 (02:17→09:08)
[2021-04-11] MEDS: Haloperidol Lactate 5 MG/ML VIAL IVP PRN (06:12)
[2021-04-11] MEDS: *HR* Heparin 5,000 UNIT/ML VIAL SQ SCH ×2 (06:19→13:04)
[2021-04-11] MEDS: Sennosides/Docusate Sodium TABLET PO SCH (09:20)
[2021-04-11] MEDS: Cholecalciferol (D-3) 1,000 UNIT (25MCG) TABLET PO SCH (09:20)
[2021-04-11] MEDS ORDERED: Haloperidol Oral Conc 10 MG/5 ML UDC PO PRN (09:36)
[2021-04-11] MEDS: Budesonide/Formoterol 160/4.5 1 PUFF INH IH SCH (10:03)
[2021-04-11 10:48] VITALS: BP 99/64; PULSE 123; TEMP 98.5; O2SAT 97
== END 2021-04-11 17:28 | disposition hospice, home (50) | DRG 393 ==
LOC: EMEROOARM 09:51 → 3ANU 09:51 → SUATTDRO 14:04 → 3ANU 15:15 → SUATTDRO 03-30 16:55 → 2ANU 04-06 22:12
PROVIDERS: ADMIT Internal Medicine; ATTEND Internal Medicine